=== PATIENT | female | born 1995 | race Caucasian/White ===

== ENCOUNTER 2018-02-01 16:04 | Emergency (ER) | payer OTHER ==
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
[2018-02-01] MEDS ORDERED: NS 500 ML IV ONE (17:03)
[2018-02-01 17:39] LABS: PLATELET COUNT 186 10^3/uL (150-400)
[2018-02-01] MEDS ORDERED: KETOROLAC 15 MG/1 ML SDV IVP ONE (18:01)
[2018-02-01 21:46] VITALS: BP 123/79
== END 2018-02-01 22:17 | disposition home or self-care (01) ==
DX: R07.9 Chest pain, unspecified (principal); F32.9 Major depressive disorder, single episode, unspecified
CPT/HCPCS: 80305; 84484-PO; 96374; J1885

== ENCOUNTER 2018-03-27 06:36 | Day surgery (SDC) | payer SELFPAY ==
[2018-03-27] MEDS ORDERED: NS 500 ML IV ONE (06:39)
[2018-03-27] MEDS ORDERED: MIDAZOLAM 2 MG/2 ML VIAL IVP ONE (06:39)
[2018-03-27] MEDS ORDERED: BENZOCAINE UNIT DOSE SPRAY HURRICAINE MM ONE (06:39)
[2018-03-27] MEDS ORDERED: fentaNYL 100 MCG/2 ML INJ IVP ONE (06:39)
[2018-03-27] MEDS ORDERED: PROPOFOL 200 MG/20 ML VIAL ONE ×2 (08:13→09:27)
[2018-03-27] MEDS ORDERED: LIDOCAINE 2% JELLY 20 ML (UROJECT) ONE (08:15)
--- NOTE | 2018-03-27 08:21 | PDANEPAE ---
ANE Past Medical History - Cardiovascular History Hx Hypertension: No Hx Arrhythmias: No Hx Chest Pain: No Hx Coronary Artery / Peripheral Vascular Disease: No Hx CHF / Valvular Disease: No Hx Palpitations: No - Pulmonary History Hx COPD: No Hx Asthma/Reactive Airway Disease: No Hx Recent Upper Respiratory Infection: No Hx Oxygen in Use at Home: No Hx Sleep Apnea: No - Endocrine History Hx Diabetes: No Hypothyroid: No Hyperthyroid: No Obesity: no - Renal History Hx Renal Disorders: No - Liver History Hx Hepatic Disorders: No - Neurological & Psychiatric Hx Hx Neurological and Psychiatric Disorders: Yes Neurological / Psychiatric History Comment: +Depression ANE Review of Systems Review of systems is: negative Review of Systems: - Exercise capacity Exercise capacity: >=4 METS ANE Patient History - Allergies Allergies/Adverse Reactions: No Known Allergies Allergy (Unverified 02/01/18 16:07) - Home Medications Home Medications: NK [No Known Home Meds] 02/01/18 [Last Taken Unknown] - NPO status NPO Status: no food or drink >8 hours - Anes Hx Anes Hx: no prior problems - Smoking Hx Smoking Status: Never smoked - Family Anes Hx Family Anes Hx: none ANE Labs/Vital Signs - Vital Signs Height: 161 cm Weight: 60 kg ANE Physical Exam - Airway Neck exam: FROM Mallampati Score: Class 2 Mouth exam: normal dental/mouth exam - Pulmonary Pulmonary: no respiratory distress - Cardiovascular Cardiovascular: regular rate and rhythym - ASA Status ASA Status: II ANE Anesthesia Plan Anesthesia Plan: GA with mask
--- NOTE | 2018-03-27 08:46 | PDGENHP ---
History & Physical Chief Complaint: MR History of Present Illness: Known MR, now approaching severe. Pertinent Past, Social, Family History: reviewed Cardiorespiratory Assessment: stable for sedation which will be provided by the anesthesia service.
--- NOTE | 2018-03-27 09:33 | POSTANESTH ---
Post Anesthetic Evaluation Cardiovascular Status: Normal, Stable Respiratory Status: Normal, Stable Level of Consciousness/Mental Status: Can Participate in Eval Pain Control: Adequate, Prn Tx Ordered Nausea/Vomiting Control: Adequate, Prn Tx Ordered Complications Possibly Related to Anesthesia: None Noted
--- NOTE | 2018-03-27 17:08 | ECHO ---
[email or web address] [place] [id number] Main: [phone] Fax: Transesophageal Echocardiography Name: BELINDA ROBERTS MR#: [id number] Study Date: 03/27/2018 Study Time: 08:21 AM Date of : 1995 Age: 23 year(s) Height: 161 cm (63.39 in.) Weight: 60 kg (132.28 lb.) BSA: 1.63 m2 Gender: Female Examination: ARPAN Indication: Murmur, Eval Mitral Valve Image Quality: Contrast: Requested by: Monique Payton Heart Rate: Rhythm: BP: / Procedure Staff Crossband Layer: Carlos Manuel Casanova RDCS Reading Physician: Monique Payton MD Requesting Provider: Crossband Layer: Reading Physician: Requesting Provider: ARPAN Exam Details Conclusions: Normal global systolic LV function. No regional wall motion abnormality. Normal RV function. The left atrium is normal in size. An agitated saline study was performed and was negative for intracardiac shunting. Severe mitral valve regurgitation is present. There is P2 prolapse of the mitral valve with hypermoble chordae tendineae consistent with chordae rupture The MR ERO is .51 cm2 with a known MR volume of 52ml. The MR PISA radius is 1.0cm.. Plan for cardiac surgery consult Measurements: Chambers Valvular Assessment AV/MV Valvular Assessment TV/PV Normal Normal Normal Name Value Range Name Value Range Name Value Range Additional Measurements: Chambers Valvular Assessment AV/MV Name Value Name Value LADs Lon.7 cm MR Vena Contracta: 0.5 cm Patient: BELINDA ROBERTS Study Date: 03/27/2018 Page 1 of 2 08:21 AM LA Area: 11.9 cm2 MR ERO: 0.510 cm2 LA Volume: 31 ml MR PISA radius: 10 mm LA Volume Index: 19.0 ml/m2 MR Reg. Volume: 40 ml Findings: Left Ventricle: Normal global systolic LV function. No regional wall motion abnormality. Right Ventricle: Normal RV function. Left Atrium: The left atrium is normal in size. An agitated saline study was performed and was negative for intracardiac shunting. Right Atrium: The right atrium is normal in size. Mitral Valve: There is moderate thickening of the mitral valve leaflets. Severe mitral valve regurgitation is present. There is P2 prolapse of the mitral valve with hypermoble chordae tendineae consistent with chordae rupture The MR ERO is .51 cm2 with a known MR volume of 52ml. The MR PISA radius is 1.0cm.. Aortic Valve: The aortic valve is normal in appearance and function. The aortic valve is tri-leaflet. Tricuspid Valve: The tricuspid valve is normal in appearance and function. Pulmonic Valve: The pulmonic valve is normal in appearance and function. Aorta: The aorta is normal. Pericardium: No pericardial effusion. l1n (No Signature Object) Patient: BELINDA ROBERTS Study Date: 03/27/2018 Page 2 of 2 08:21 AM [id number]
== END 2018-03-27 12:17 | disposition home or self-care (01) ==
LOC: FCATH 06:36
PROVIDERS: ATTEND Internal Medicine Cardiovascular Disease
PROC: B245ZZ4 Ultrasonography of Left Heart, Transesophageal (ICD-10-PCS; principal; 2018-03-27)
DX: I34.0 Nonrheumatic mitral (valve) insufficiency (principal); F32.9 Major depressive disorder, single episode, unspecified
CPT/HCPCS: J2704

== ENCOUNTER 2018-04-16 06:28 | Inpatient (IN) | payer OTHER ==
[~2018-04-16 06:28] MED LIST: AMINOCAPROIC ACID 5 GM/20 ML VIAL IV ONE; CARDIOPLEGIC SOLUTION 1,052.8 ML PF ONE; CITRATE DEXTROSE SOLN 500 ML BAG MISC ONE; INSULIN REGULAR HUMAN 100 UNIT in NS 100 ML IV ONE; LIDOCAINE 1% 2 ML INJ ID PRN; MANNITOL 25% 12.5 GM/50 ML VIAL IVP ONE; MUPIROCIN 2% 22 GM OINT NS ONE; PHENYLEPHRINE HCL 50 MG in NS 250 ML IV ONE; ceFAZolin 2 GM/DEXTROSE 100 ML IV ONE
[2018-04-16] MEDS ORDERED: LR 1,000 ML IV ONE (06:36)
[2018-04-16] MEDS ORDERED: MILRINONE/DEXTROSE/100 ML BAG IV ONE (07:17)
[2018-04-16] MEDS ORDERED: PROTAMINE SULFATE 50 MG/5 ML VIAL IVP ONE (07:17)
[2018-04-16] MEDS ORDERED: CALCIUM CHLORIDE 1 GM/10 ML INJ ONE ×2 (07:17→07:20)
[2018-04-16] MEDS ORDERED: AMIODARONE HCL 150 MG/3 ML VIAL ONE ×2 (07:18→07:20)
[2018-04-16] MEDS ORDERED: niCARdipine/NACL/200 ML BAG IV ONE (07:18)
[2018-04-16] MEDS ORDERED: NA BICARBONATE 50 MEQ/50 ML VIAL ONE (07:18)
[2018-04-16] MEDS ORDERED: AMINOCAPROIC ACID 5 GM/20 ML VIAL ONE ×2 (07:18→07:20)
[2018-04-16] MEDS ORDERED: HEPARIN 10,000 UNIT/10 ML MDV (1,000 UNIT/ML) ONE ×2 (07:18→07:20)
[2018-04-16] MEDS ORDERED: DOPamine/DEXTROSE 400 MG/250 ML BAG IV ONE (07:18)
[2018-04-16] MEDS ORDERED: ceFAZolin 1 GM VIAL ONE (07:19)
[2018-04-16] MEDS ORDERED: NITROGLYCERIN/D5W 50 MG/250 ML BOTTLE IV ONE (07:19)
[2018-04-16] MEDS ORDERED: ADENOSINE 6 MG/2 ML VIAL ONE (07:19)
[2018-04-16] MEDS ORDERED: ALBUMIN 5% 250 ML BOTTLE IV ONE ×3 (07:19→20:59)
[2018-04-16] MEDS ORDERED: SODIUM BICARBONATE 50 MEQ/50 ML SYR ONE ×3 (07:19→13:03)
[2018-04-16] MEDS ORDERED: CITRATE DEXTROSE SOLN 500 ML BAG ONE (07:20)
[2018-04-16] MEDS ORDERED: LIDOCAINE 2% 100 MG/5 ML SYR ONE ×2 (07:20→08:11)
[2018-04-16] MEDS ORDERED: methylPREDNISolone SOD SUCC 1 GM/8 ML VIAL ONE (07:20)
[2018-04-16] MEDS ORDERED: MAGNESIUM SULFATE 1 GM/2 ML VIAL ONE (07:20)
[2018-04-16] MEDS ORDERED: MIDAZOLAM 2 MG/2 ML VIAL IVP ONE (07:51)
--- NOTE | 2018-04-16 07:56 | PDANEPAE ---
ANE History of Present Illness minimally invasive MVR ANE Past Medical History - Cardiovascular History Hx Hypertension: No Hx Arrhythmias: No Hx Chest Pain: No Hx Coronary Artery / Peripheral Vascular Disease: No Hx CHF / Valvular Disease: Yes Hx Palpitations: No Cardiovascular History Comment: mitral regurgitation-congenital - Pulmonary History Hx COPD: No Hx Asthma/Reactive Airway Disease: No Hx Recent Upper Respiratory Infection: No Hx Oxygen in Use at Home: No Hx Sleep Apnea: Yes Sleep Apnea Screening Result - Last Documented: Negative - Neurologic History Hx Cerebrovascular Accident: No Hx Seizures: No Hx Dementia: No - Endocrine History Hx Diabetes: No - Renal History Hx Renal Disorders: No - Liver History Hx Hepatic Disorders: No - Neurological & Psychiatric Hx Hx Neurological and Psychiatric Disorders: Yes Neurological / Psychiatric History Comment: depression. 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 leg surgeries 2011 and 2013. tonsillectomy at 10 yo ANE Review of Systems Review of Systems: - Exercise capacity METS (RN): 4 METS ANE Patient History - Allergies Allergies/Adverse Reactions: No Known Allergies Allergy (Verified 04/09/18 15:57) - Home Medications Home medications: home medication list seen and reviewed Home Medications: FLUoxetine [PROzac] 20 mg PO HS 03/27/18 [Last Taken 04/14/18] Acetaminophen [Tylenol ES 500 mg (*)] 500 mg PO Q6H PRN 04/09/18 [Last Taken ] - NPO status NPO Since - Liquids (Date): 04/16/18 NPO Since - Liquids (Time): 23:55 NPO Since - Solids (Date): 04/15/18 NPO Since - Solids (Time): 23:55 - Anes Hx Anes Hx: no prior problems - Smoking Hx Smoking Status: Never smoked - Alcohol Use Alcohol Use: Rarely - Family Anes Hx Family Anes Hx: none Family Hx Anesthesia Complications: none ANE Labs/Vital Signs - Labs - CBC WBC: reviewed and okay - Vital Signs Blood Pressure: 122/72 Heart Rate: 68 Respiratory Rate: 16 O2 Sat (%): 97 Height: 161 cm Weight: 60 kg ANE Physical Exam - Airway Neck exam: FROM Mallampati Score: Class 1 Mouth exam: normal dental/mouth exam - Pulmonary Pulmonary: no respiratory distress - Cardiovascular Cardiovascular: regular rate and rhythym - ASA Status ASA Status: II ANE Anesthesia Plan Anesthesia Plan: general endotracheal anesthesia Lines/Monitors: arterial line, central line, ARPAN
[2018-04-16] MEDS ORDERED: DEXMEDETOMIDINE HCL 400 MCG in NS 100 ML IV ONE (08:00)
--- NOTE | 2018-04-16 08:08 | PDHPUP ---
History & Physical Update H&P update statement: This history and physical update is based on an assessment of the patient which was completed after admission or registration (within 24 hours), but prior to the surgery/procedure. H&P update: H&P reviewed & patient examined, no change in patient's condition since H&P completed
[2018-04-16] MEDS ORDERED: REMIFENTANIL HCL 1 MG VIAL ONE (08:10)
[2018-04-16] MEDS ORDERED: MIDAZOLAM 2 MG/2 ML VIAL ONE ×2 (08:10→12:09)
[2018-04-16] MEDS ORDERED: ROCURONIUM 100 MG/10 ML VIAL ONE (08:10)
[2018-04-16] MEDS ORDERED: fentaNYL 250 MCG/5 ML INJ ONE (08:10)
[2018-04-16] MEDS ORDERED: PROPOFOL/EMULSION 500 MG/50 ML BOTTLE IV ONE (08:10)
[2018-04-16] MEDS ORDERED: DEXAMETHASONE 4 MG/ML VIAL ONE ×2 (08:11)
[2018-04-16] MEDS ORDERED: ePHEDrine SULFATE 25 MG/5 ML SYR ONE (08:11)
[2018-04-16] MEDS ORDERED: PHENYLEPHRINE HCL 100 MCG/ML SYR ONE (08:11)
[2018-04-16] MEDS ORDERED: ONDANSETRON 4 MG/2 ML VIAL ONE (08:11)
[2018-04-16] MEDS ORDERED: LIDOCAINE 2% JELLY 5 ML TUBE ONE (08:14)
[2018-04-16] MEDS ORDERED: LIDOCAINE HCL 160 MG/4 ML LTA KIT TP ONE (08:15)
[2018-04-16] MEDS ORDERED: VASOPRESSIN 20 UNIT/ML VIAL ONE (11:53)
[2018-04-16] MEDS ORDERED: ROCURONIUM 50 MG/5 ML VIAL ONE ×2 (11:55→14:35)
[2018-04-16] MEDS ORDERED: NOREPINEPHRINE BITARTRATE 16 MG in NS 250 ML IV SCH (12:00)
[2018-04-16] MEDS ORDERED: EPINEPHrine 1 MG/10 ML SYR IVP ONE (12:12)
[2018-04-16] MEDS ORDERED: PANTOPRAZOLE SODIUM 40 MG VIAL ONE (12:53)
[2018-04-16] MEDS ORDERED: SUGAMMADEX SODIUM 200 MG/2 ML VIAL IVP ONE (13:56)
[2018-04-16] MEDS ORDERED: PROPOFOL 200 MG/20 ML VIAL ONE (14:20)
[2018-04-16] MEDS ORDERED: MAGNESIUM HYDROXIDE 30 ML UDCUP PO PRN (14:25)
[2018-04-16] MEDS ORDERED: POLYETHYLENE GLYCOL 3350 17 GM PKT PO PRN (14:25)
[2018-04-16] MEDS ORDERED: D50W 25 GM/50 ML SYR IVP PRN (14:25)
[2018-04-16] MEDS ORDERED: METOCLOPRAMIDE 10 MG/2 ML VIAL IVP PRN (14:25)
[2018-04-16] MEDS ORDERED: SODIUM CL NASAL 45 ML BTL EACHNARE PRN (14:25)
[2018-04-16] MEDS ORDERED: LACTULOSE 20 GM/30 ML UDCUP PO PRN (14:25)
[2018-04-16] MEDS ORDERED: ACETAMINOPHEN 325 MG TAB PO PRN (14:25)
[2018-04-16] MEDS ORDERED: MEPERIDINE 25 MG/0.5 ML AMP IVP PRN (14:25)
[2018-04-16] MEDS ORDERED: CEPACOL LOZENGE PO PRN (14:25)
[2018-04-16] MEDS ORDERED: PANTOPRAZOLE SODIUM 40 MG VIAL IVP ONE (14:25)
[2018-04-16] MEDS ORDERED: ONDANSETRON DISINTEGRATING 4 MG TAB PO PRN (14:25)
[2018-04-16] MEDS ORDERED: BISACODYL 10 MG SUPP PR PRN (14:25)
[2018-04-16] MEDS ORDERED: POTASSIUM Cl (KCl) 50 ML IV PRN (14:25)
[2018-04-16] MEDS ORDERED: INSULIN REGULAR HUMAN 100 UNIT in NS 100 ML IV SCH (14:30)
[2018-04-16] MEDS ORDERED: NS 1,000 ML IV SCH (14:30)
[2018-04-16] MEDS: ALBUMIN 5% 250 ML IV PRN ×4 (15:10→21:45)
--- NOTE | 2018-04-16 15:39 | PDMN ---
Medical Necessity Medical necessity: Pt meets inpt criteria per MD order and [facility], Cardiac Valve Replacement or Repair, Medicare inpt only surg list. 23 y/o w/severe mitral valve regurg admitted for min invasive mitral valve repair and post-op care.
[2018-04-16] MEDS ORDERED: MEPERIDINE 25 MG/0.5 ML AMP IVP ONE (15:45)
[2018-04-16] MEDS: KETOROLAC 15 MG/1 ML SDV IVP SCH ×2 (16:20→19:26)
--- NOTE | 2018-04-16 17:27 | GCON ---
RACK CLEANER CONSULTATION REASON FOR CONSULTATION: Patient examined postoperatively after a minimally invasive mitral valve re pair and hypoperfusion. 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 Again, she was examined postoperatively. Intraoperatively, there were problems with perfusion, with some evide nce of a period of hypoperfusion and low pressure. The perfusion catheter was switched from the righ t leg to the left leg, and perfusion was performed, and the surgery was finished. She is currently i n the intensive care unit, sedated and on mechanical ventilation. All history is gleaned from the [place] dical record. REVIEW OF SYSTEMS: Ten-point review of systems was attempted, but unable to perform secondary to sed ation and mechanical ventilation. 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 PAST SURGICAL HISTORY: Has had tonsillectomy, removal of tumor from right thigh. ALLERGIES: No known to medication. MEDICATIONS: At home include fluoxetine. FAMILY HISTORY: Noncontributory. PHYSICAL EXAM: VITAL SIGNS: Blood pressure 82/38, pulse 116. Respirations are 20, temperature 35.4. Oxygen saturation is 90% on 100% mechanical ventilation. GENERAL: She is a well-developed, well-n ourished 23-year-old female who is obtunded and on mechanical ventilation. HEENT: Eyes, pupils are w geraldine and poorly responsive. NECK: Supple. There is no cervical adenopathy. Orally, endotracheal tu be is in good position. NECK: Supple. No cervical adenopathy. HEART: Regular rate and rhythm, wi thout murmurs, rubs, or gallops. LUNGS: Diminished breath sounds, with few bibasilar crackles. ABD OMEN: Soft, nontender. Bowel sounds present in all 4 quadrants. EXTREMITIES: No clubbing, cyanosi s, or edema. LABORATORIES: Currently pending. IMAGING: Chest x-ray shows endotracheal tube in good position. There is evidence of pulmonary edema and fluid overload. IMPRESSION: 1. Mitral regurgitation. 2. Status post mitral valve repair. 3. Intraoperative perfusion problem with low perfusion. This apparently went on for approximately 1 5 minutes before perfusion was restored. 4. Acute respiratory failure secondary to above. 5. Pulmonary edema. 6. Encephalopathy with neurologic changes. RECOMMENDATIONS: 1. Continue mechanical ventilation for now. 2. Hold sedation for now. 3. DVT and PE prophylaxis, holding anticoagulation for now. 4. Stress ulcer prophylaxis. 5. Close neurologic and cardiovascular monitoring. /[id number]/MODL
[2018-04-16] MEDS ORDERED: DEXMEDETOMIDINE HCL 400 MCG in NS 100 ML IV SCH (18:00)
[2018-04-16] MEDS ORDERED: niCARdipine/NACL 200 ML IV SCH (18:00)
[2018-04-16] MEDS ORDERED: MAGNESIUM SULF 1 GM/DEXTROSE 100 ML IV ONE (19:30)
[2018-04-16] MEDS ORDERED: PROPOFOL/EMULSION 1,000 MG/100 ML BOTTLE IV ONE (21:13)
[2018-04-16] MEDS: PROPOFOL/EMULSION 100 ML IV SCH (21:49)
[2018-04-16] MEDS: ceFAZolin 2 GM/DEXTROSE 100 ML IV SCH (22:10)
[2018-04-16] MEDS: MUPIROCIN 2% 22 GM OINT NS SCH (22:14)
[2018-04-16] MEDS: FLUoxetine 20 MG CAP PO SCH (22:15)
[2018-04-17] MEDS: KETOROLAC 15 MG/1 ML SDV IVP SCH ×4 (00:10→18:25)
[2018-04-17 04:07] LABS: PLATELET COUNT 56 10^3/uL (150-400)
[2018-04-17 04:11] LABS: INR 1.63 (0.83-1.16); PROTIME(PATIENT) 19.5 SEC (12.0-15.0)
[2018-04-17] MEDS: PROPOFOL/EMULSION 100 ML IV SCH ×2 (04:50→23:46)
[2018-04-17] MEDS: PETROLAT,WHT/MIN OIL/SOD CHL 3.5 GM OPHT.OINT EACHEYE SCH ×3 (06:11→19:32)
[2018-04-17] MEDS: ceFAZolin 2 GM/DEXTROSE 100 ML IV SCH ×3 (06:11→21:18)
--- NOTE | 2018-04-17 06:48 | SOAPPROG ---
<SusannaRoddy P - Last Filed: 04/17/18 06:56> SOAP Progress Note Assessment/Plan: Assessment: Stable hemodynamics overnight. Responds to deep sternal rub with grimace. spontaneous movements of tongue relative to ET tube Propofol off now. CT last night unremarkable. I met with patients mother and answered questions. Plan for Neurology to evaluate. Will likely need EEG later today. Discussed with Dr. Gunderson Plan: 04/17/18 06:56 Objective: Vital Signs Temp Pulse Resp BP Pulse Ox 37.7 C 102 H 22 H 135/63 H 100 04/17/18 06:00 04/17/18 06:50 04/17/18 06:50 04/17/18 06:50 04/17/18 06:50 Laboratory Results 04/17/18 03:55 04/17/18 03:55 04/16/18 04/17/18 04/18/18 05:59 05:59 05:59 Intake Total 3121 Output Total 2900 Balance 221 PT 19.5 SEC (12.0-15.0) H 04/17/18 03:55 INR 1.63 (0.83-1.16) H 04/17/18 03:55 ICD10 Worksheet Patient Problems: Problems Problem Status Onset Acute blood loss anemia Acute Mitral valve regurgitation Acute S/P mitral valve repair Acute ~04/16/18 Depression Chronic <Zeina Ricardo - Last Filed: 04/17/18 07:43> SOAP Progress Note Assessment/Plan: Assessment: POD#1 MICS complex MV repair w #26 Physio ring, access mini right thoracotomy, femoral CPB with primary repair of femoral arteries and vein after decannulation Severe MR - Amenable to mini invasive approach. Rt fem CPB complicated by unexplained 15 min low flow state refractory to pressors. Cannula ultimately transferred to left side with improved hemodynamics. Slow to arouse and heightened concern for anoxic encephalopathy. CT head NAF. Neuro to be consulted. Cardiac status stable. Vent needs minimal. Acute expected blood loss anemia with thrombocytopenia and mild coagulopathy - Stable s/p PRBC. No evidence active bleeding. Plan: Supportive care as per multidisciplinary team. Await neuro recs. 04/17/18 06:47 Subjective: Sedated on vent. Objective: Vital Signs Temp Pulse Resp BP Pulse Ox 37.7 C 91 20 115/51 L 100 04/17/18 06:00 04/17/18 06:00 04/17/18 06:00 04/17/18 06:00 04/17/18 06:00 Laboratory Results 04/17/18 03:55 04/17/18 03:55 04/16/18 04/17/18 04/18/18 05:59 05:59 05:59 Intake Total 3121 Output Total 2900 Balance 221 PT 19.5 SEC (12.0-15.0) H 04/17/18 03:55 INR 1.63 (0.83-1.16) H 04/17/18 03:55 Off levo yest pm. Maintaining CI > 3, SVO2 > 70. CXR no PTX, no sig pulm vasc congestion, no effusions. CTOP thin. Labs as expected. Physical Exam - Physical Exam General Appearance: no apparent distress, unresponsive (to voice) Respiratory: other (chest tube to pleurovac, serosang drainage, no air leak) Cardiac/Chest: regular rate, rhythm, other (thoracot and bilat groins CDI) Abdomen: non-tender, soft Skin: warm/dry Extremities: swelling (1+ gen), other (feet pink and warm)
--- NOTE | 2018-04-17 08:31 | PDINTPN ---
[facility] Progress Note Assessment/Plan: Assessment/Plan: * Mitral regurgitation * Status post mitral valve repair * Encephalopathy-secondary to low pressure intraoperatively. Improved -neurology has been consulted -EEG has been scheduled * Acute respiratory failure-stable on mechanical ventilation -hold assessment for extubation for now * Anemia-improved post transfusion * Mild renal insufficiency-creatinine 1.2 -follow * Transaminitis-mild elevations in both AST and ALT. Likely secondary to low- flow state -follow * VT prophylaxis * Stress ulcer prophylaxis * Nutrition-on hold Subjective: Coma. Objective: Vital Signs Temp Pulse Resp BP Pulse Ox 37.7 C 101 H 18 134/60 H 99 04/17/18 06:00 04/17/18 08:00 04/17/18 08:00 04/17/18 08:00 04/17/18 08:00 Laboratory Results 04/17/18 03:55 04/17/18 03:55 04/16/18 04/17/18 04/18/18 05:59 05:59 05:59 Intake Total 3121 Output Total 2900 Balance 221 PT 19.5 SEC (12.0-15.0) H 04/17/18 03:55 INR 1.63 (0.83-1.16) H 04/17/18 03:55 Laboratory Results 04/17/18 03:55 04/17/18 03:55 04/17/18 03:55 Calcium 7.4 mg/dL L mg/dL (8.5 - 10.4) Total Bilirubin 0.9 mg/dL mg/dL (0.1 - 1.4) AST 191 IU/L H IU/L (14 - 46) ALT 123 IU/L H IU/L (9 - 52) Alkaline Phosphatase 27 IU/L L IU/L (38 - 126) Total Protein 3.9 g/dL L g/dL (6.3 - 8.2) Albumin 2.5 g/dL L g/dL (3.5 - 5.0) Chest x-ray by myself. Endotracheal tube in good position. Central venous catheter and chest tube is in good position. Mild fluid overload. - Time Spent With Patient Time Spent With Patient: 35 min of critical care time spent with patient. Case discussed with Nursing, Respiratory therapy and neurology Physical Exam - Physical Exam General Appearance: WD/WN, obtunded, No alert EENT: PERRL/EOMI, ET tube Neck: non-tender, supple Respiratory: chest non-tender, lungs clear, normal breath sounds Cardiac/Chest: normal peripheral pulses, regular rate, rhythm Peripheral Pulses: 2+: carotid (R), carotid (L), femoral (R), femoral (L), dorsalis-pedis (R), dorsalis-pedis (L) Abdomen: normal bowel sounds, non-tender, soft Pelvic Exam: deferred Rectal: deferred Skin: normal color, warm/dry Extremities: normal inspection, normal capillary refill Neuro/Psych: No alert ICD10 Worksheet Patient Problems: Problems Problem Status Onset Acute blood loss anemia Acute Mitral valve regurgitation Acute S/P mitral valve repair Acute ~04/16/18 Depression Chronic
[2018-04-17] MEDS ORDERED: PANTOPRAZOLE SODIUM 40 MG TAB PO SCH (09:00)
[2018-04-17] MEDS ORDERED: ASPIRIN 81 MG CHEWABLE TAB TUBE PRN (09:00)
[2018-04-17] MEDS: ASPIRIN 81 MG CHEWABLE TAB PO SCH (09:04)
[2018-04-17] MEDS: MUPIROCIN 2% 22 GM OINT NS SCH ×2 (09:05→21:18)
--- NOTE | 2018-04-17 09:42 | GCON ---
NEUROLOGIC CONSULTATION REFERRING PHYSICIAN: Javier Gunderson DO HISTORY: The patient is a 23-year-old woman I am asked to see in neurologic consultation regarding a ltered responsiveness. The patient had elective mitral valve repair yesterday and experienced a time frame of relative hypoperfusion over about 15 or 20 minutes. I have not ascertained the exact timefr christine but have reviewed the notes from the candy counter clerk, showing the mean arterial pressure at 10:15 of 60 and remaining around that pressure until 11:30, when it was at 50, and then 48 at 11:45, 48 at 12 , 21 at 12:15, and 51 at 12:45 p.m. I have been told that the catheter was adjusted and changed, and pressure was able to be maintained. Anesthesia was weaned, and the patient was having some tongue t hrusting and gagging motions on the tube. That has also been documented here in the ICU when the pro pofol was weaned. According to report from the nurse last evening, there were times of flexion of th e upper extremities, more of a decorticate posture and movement of the mouth, with gagging on the tub e intermittently. Her sister is with her and noted that there was some increased muscle tone yesterd ay relative to today. As she has been weaned from propofol temporarily, she fairly promptly starts t o gag or cough. Her eyes intermittently open. There is a tendency for her to flex up her knees. Sh e is not spontaneously moving the arms. I do not see any stereotyped, repetitive motion to suggest s eizure or myoclonus, and there is not sustained period of hypertonicity. With stimulation, there are bilateral Babinski signs. She is not following commands for me. She opens the eyes spontaneously b ut does not have sustained attention toward the examiner. Pupils are 3 mm to 4 mm and reacting. Eye movements are conjugate but not able to track my finger. The sensory response elicited with pain le ads to a partial reflexive motion in the feet. This is due to the irritation of the plantar surface. The reflexes are brisk. The current blood pressure 134/60, mean arterial pressure of 84. Mean arter ial pressure since coming to the ICU at 1310 has been above 60 and mostly between 69-80, sometimes up to 90. Pulse has been around 100. Respiratory rate 21. LABORATORY: White count is 14,000. INR 1.63. Current blood gas, pH of 7.35, CO2 38, oxygen 119, bi carbonate 22. Chemistry reveals essentially normal electrolytes, but mild elevation of creatinine of 1.2, glucose 104, calcium 7.4. AST and ALT are elevated at 191 and 123, respectively. I have reviewed the head CT from 194 yesterday, and that is normal. IMPRESSION: Total unit time of 50 minutes. The patient has experienced a timeframe of relative low mean arterial pressure, with possible significantly decreased cerebral perfusion pressure and has bee n slower to respond, but is reacting with preservation of brainstem reflexes and movements that at le ast sometimes have a somewhat volitional component, but at other times more reflexive. It is too ear ly to draw any conclusions about any actual hypoxic or ischemic injury. I do not believe she is clin ically having seizure. However, I would like to obtain EEG to get a baseline assessment of general c erebral function. With regard to sedating, periods of weaning of the sedation would be appropriate t o continue to reassess the neurologic status and look for any evidence of following commands, which h as not been clearly documented at this point. I spoke to the patient's father, mother and her sister and gave them my contact information. I will plan to follow up later today. /[id number]/MODL
[2018-04-17] MEDS: PANTOPRAZOLE SODIUM 40 MG VIAL IVP SCH (10:27)
[2018-04-17] MEDS: fentaNYL 100 MCG/2 ML INJ IVP PRN (10:28)
[2018-04-17] MEDS ORDERED: POTASSIUM Cl (KCl) 20 MEQ/50 ML BAG IV ONE (11:17)
--- NOTE | 2018-04-17 12:28 | CPEEG ---
DATE OF STUDY: EEG is obtained in the ICU. This is a technically adequate study obtained with the patient on the ve ntilator in the ICU. She has a history of relative low blood pressure during cardiac procedure and h as been slower to arouse back to baseline with the weaning of anesthesia. Clinically, there have bee n no definite seizures, but variable motor movements raising the question of any possible seizure act ivity. Mild clonus has not been specifically identified. She is not currently following commands, b ut opens eyes when sedation is weaned and opens the mouth and seems to gag or cough on the endotrache al tube. Indication is to evaluate for seizure or epileptiform activity or any focal findings. The background consists of a predominantly generalized 7-10 Hz activity with periods of relative generalized slowin g and sometimes frontal predominant theta or rare frontal predominant delta slowing but no epileptifo rm discharges. No areas of focal slowing or focal epileptiform discharges and no electrographic seiz ures. INTERPRETATION: This is an abnormal EEG due to some generalized slowing, but also fully consistent w ith her state of relative decreased responsiveness and effects of sedative medication at times as wel l. There are not features of any electrographic seizure or epileptiform discharges, and we will cont inue to monitor her clinical progress. /[id number]/MODL
--- NOTE | 2018-04-17 15:16 | ASMTCASEMG ---
Living Arrangements What is your living Answers: With Other (Not Family) arrangement? Who do you live with? Type Of Residence What kind of residence do Answers: House you live in? 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 During the repair the patient experienced a timeframe of relative hypoperfusion over about 15 or 20 minutes. Neuro is consulting. OT/PT/OUTSIDE SALES ACCOUNT EXECUTIVE/Cardiac rehab evals have been ordered. D/C plan TBD. CM will follow. Date Signed: 04/17/2018 03:07 PM Electronically Signed By:Haritha Fu LCSW
[2018-04-17] MEDS ORDERED: PROTOCOL POTASSIUM 1 DOSE MISC PRN (16:07)
--- NOTE | 2018-04-17 17:40 | CPEKG ---
Test Reason : OPEN Blood Pressure : / mmHG Vent. Rate : 121 BPM Atrial Rate : 121 BPM P-R Int : 137 ms QRS Dur : 070 ms QT Int : 326 ms P-R-T Axes : 093 058 -03 degrees QTc Int : 463 ms Sinus tachycardia Borderline repol abnormality, diffuse leads Confirmed by Trey Hand ([id number]) on 04/17/2018 5:40:09 PM Referred By: Confirmed By:Trey Hand
[2018-04-17] MEDS ORDERED: POTASSIUM Cl (KCl) 50 ML IV ONE (19:30)
[2018-04-17] MEDS: FLUoxetine 20 MG CAP PO SCH (21:18)
[2018-04-18] MEDS: ONDANSETRON 4 MG/2 ML VIAL IVP PRN (00:12)
[2018-04-18] MEDS: KETOROLAC 15 MG/1 ML SDV IVP SCH ×2 (00:27→05:30)
[2018-04-18] MEDS: PETROLAT,WHT/MIN OIL/SOD CHL 3.5 GM OPHT.OINT EACHEYE SCH ×5 (00:28→23:56)
[2018-04-18 05:09] LABS: INR 1.26 (0.83-1.16)
[2018-04-18 05:13] LABS: PLATELET COUNT 49 10^3/uL (150-400)
[2018-04-18] MEDS: ceFAZolin 2 GM/DEXTROSE 100 ML IV SCH (05:29)
[2018-04-18] MEDS: PROPOFOL/EMULSION 100 ML IV SCH ×2 (05:33→22:53)
--- NOTE | 2018-04-18 07:13 | SOAPPROG ---
SOAP Progress Note Assessment/Plan: POD #2: MICS complex MV repair w #26 Physio ring, access mini right thoracotomy , femoral CPB with primary repair of femoral arteries and vein after decannulation Severe MR with torn chord to P3 segment s/p MICS complex repair - continue AT, CTs to pleurovac, and FC. Coumadin as per protocol when appropriate. Encephalopathy secondary to hypoperfusion - prognosis remains critical. Mgmt as per neurology. Acute expected blood loss anemia with thrombocytopenia and mild coagulopathy - stable after multiple units of PRBC. No evidence active bleeding. Monitor. DVT prophylaxis - SCDs. Nutrition - tube feeds as per protocol. Subjective: Unresponsive Objective: Vital Signs Temp Pulse Resp BP Pulse Ox 37.5 C 82 22 H 142/58 H 100 04/18/18 04:00 04/18/18 06:00 04/18/18 06:00 04/18/18 06:00 04/18/18 06:00 Laboratory Results 04/18/18 04:45 04/18/18 04:45 04/17/18 04/18/18 04/19/18 05:59 05:59 05:59 Intake Total 3121 2171 Output Total 2900 2525 Balance 221 -354 PT 16.0 SEC (12.0-15.0) H 04/18/18 04:45 INR 1.26 (0.83-1.16) H 04/18/18 04:45 Physical Exam - Physical Exam General Appearance: no apparent distress, unresponsive EENT: ET tube Neck: normal inspection Respiratory: No respiratory distress Cardiac/Chest: regular rate, rhythm Abdomen: non-tender, soft, No distended Skin: normal color, warm/dry Extremities: No pedal edema Neuro/Psych: other (sedated) ICD10 Worksheet Patient Problems: Problems Problem Status Onset Acute blood loss anemia Acute Mitral valve regurgitation Acute S/P mitral valve repair Acute ~04/16/18 Depression Chronic
[2018-04-18] MEDS: ASPIRIN 81 MG CHEWABLE TAB PO SCH (07:20)
--- NOTE | 2018-04-18 08:47 | PDINTPN ---
[facility] Progress Note Assessment/Plan: Assessment/Plan: * Mitral regurgitation * Status post mitral valve repair * Encephalopathy-secondary to low pressure intraoperatively. Having gradually -frequent neuro checks * Acute respiratory failure-stable on mechanical ventilation -hold assessment for extubation until mental status improves * Anemia-improved post transfusion * Sedation-adequate -will keep probe fall as low as possible * Thrombocytopenia-stable but low. -follow * Mild renal insufficiency-creatinine 1.2 -follow * Transaminitis-mild elevations in both AST and ALT. Improved -follow * VT prophylaxis * Stress ulcer prophylaxis * Nutrition-on hold Subjective: Coma Objective: Vital Signs Temp Pulse Resp BP Pulse Ox 37.5 C 82 34 H 139/58 H 100 04/18/18 04:00 04/18/18 07:00 04/18/18 07:00 04/18/18 07:00 04/18/18 07:00 Laboratory Results 04/18/18 04:45 04/18/18 04:45 04/17/18 04/18/18 04/19/18 05:59 05:59 05:59 Intake Total 3121 2171 Output Total 2900 2525 180 Balance 221 -354 -180 PT 16.0 SEC (12.0-15.0) H 04/18/18 04:45 INR 1.26 (0.83-1.16) H 04/18/18 04:45 - Time Spent With Patient Time Spent With Patient: 35 min of critical care time spent with patient. Case discussed with Respiratory therapy, nursing and neurology Physical Exam - Physical Exam General Appearance: obtunded, No alert EENT: PERRL/EOMI (Pupils 3 mm and reactive), ET tube Neck: non-tender Respiratory: lungs clear, No respiratory distress, No wheezing Cardiac/Chest: normal peripheral pulses, regular rate, rhythm, systolic murmur Abdomen: normal bowel sounds, non-tender, soft Pelvic Exam: deferred Rectal: deferred Skin: normal color, warm/dry Extremities: non-tender, normal inspection Neuro/Psych: No alert ICD10 Worksheet Patient Problems: Problems Problem Status Onset Acute blood loss anemia Acute Mitral valve regurgitation Acute S/P mitral valve repair Acute ~04/16/18 Depression Chronic
--- NOTE | 2018-04-18 08:52 | NEUROPROG ---
Assessment: Total unit time of 25 min. The patient has encephalopathy of uncertain cause but we are continuing to monitor her progress. I spoke to her sister mother and father this morning who are comfortable with the status of what is happening and hopeful to see more improvements soon. He remains too early to draw any definitive conclusions about her long-term prognosis. I have low suspicion for intracranial edema and do not feel repeat brain imaging is needed currently. Her father asked me questions about that issue and we discussed that in detail. Subjective: The patient has had periods of breaks from sedation and reports are that she will open her eyes and have spontaneous movement of the legs at times and not clearly following commands. Her mother told me that when she spoke her name she seemed open her eyes, but the nurse tells me he is not seeing that consistently occurring. She consistently gags or coughs on the airway when the sedation is weaned. No one has witnessed any clinical seizure activity. Objective: Vital Signs Temp Pulse Resp BP Pulse Ox 37.5 C 82 34 H 139/58 H 100 04/18/18 04:00 04/18/18 07:00 04/18/18 07:00 04/18/18 07:00 04/18/18 07:00 Laboratory Results 04/18/18 04:45 04/18/18 04:45 04/17/18 04/18/18 04/19/18 05:59 05:59 05:59 Intake Total 3121 2171 Output Total 2900 2525 180 Balance 221 -354 -180 PT 16.0 SEC (12.0-15.0) H 04/18/18 04:45 INR 1.26 (0.83-1.16) H 04/18/18 04:45 She just had her sedation weaned prior to my examination and spontaneously opens her eyes intermittently but is not attending to the examiner or following commands. She has a purposeful flexion of the right leg up toward her and less on the left. She is not moving her arms for me. She is not following commands to specifically squeeze. When asked her to move her feet, it was equivocal whether she really understood that. The same can be said for opening closing of the eyes. It was not clear to me that she truly understood what was being stated. Pupils 2 mm and reactive. The extraocular movements are mostly conjugate but not very specifically directed toward the examiner. The EEG from yesterday showed some mild generalized slowing but nothing else more specific and no evidence of electrographic seizures or focal findings. Allergies/Adverse Reactions: No Known Allergies Allergy (Verified 04/09/18 15:57)
--- NOTE | 2018-04-18 09:10 | GOP ---
DATE OF OPERATION: 04/16/2018 SURGEON: Roddy Mullins MD PREOPERATIVE DIAGNOSIS: Severe mitral regurgitation. POSTOPERATIVE DIAGNOSIS: Severe mitral regurgitation. PROCEDURE PERFORMED: Mitral valve repair with resection of the P3 segment of the posterior leaflet, reconstruction and annuloplasty with a 26 mm Physio ring. FINDINGS: The anterior leaflet was well supported. The posterior leaflet had torn chord to the P3 s egment. There was a cleft between P2 and P3. 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 On recent followup she had echocardiography and was found to have lion re mitral regurgitation with an anteriorly directed jet. She was recommended to undergo surgical etienne ve repair for the prevention of heart failure. DESCRIPTION OF PROCEDURE: The patient was taken to the operating room, placed on the operating table in the supine position. After the induction of general anesthesia and double-lumen endotracheal tub e intubation, the patient was prepped and draped sterilely. The right chest was elevated slightly by placing a roll behind the right scapula. After sterile prep and drape, we began by accessing the [facility] pleural space. The right lung was isolated. An incision had been marked on the skin prior to pr ep and drape, and the skin was then opened and the chest was entered through the 4th interspace. The skin was just lateral to the right breast. The left pleural space had been opened. We placed a sof t tissue retractor and then a rigid retractor to gain additional intercostal space. The right common femoral artery and vein were then surgically exposed. Access to the right subclavia n vein was attempted for potential placement of an SVC cannula. However, after multiple passes with the needle, we elected to forego the SVC cannula and place the IVC cannula into the SVC from below. At this point, the patient was fully heparinized. The common femoral artery had been previously expo sed. It was occluded with a side-biter clamp and then sewn end-to-side. An aortotomy was created an d an 8 mm cannula graft was sewn end-to-side to the right common femoral artery. This was then used as an arterial cannula on the vein. We then placed a pursestring and a 25-Albanian dual stage long jia ous cannula was then placed over the wire from the right common femoral vein into the superior vena c wade. This was confirmed by both transesophageal echo and palpation. Next, cardiopulmonary bypass was instituted. The pericardium had been opened. Retraction stitches w ere placed. We placed a vent stitch in the aorta, and the cardioplegia needle was then also placed u neventfully in the ascending aorta. The transthoracic cross-clamp was then brought up onto the field and through a separate stab incision, the transthoracic clamp was placed and the heart was arrested with 1 L of [place] solution. The left atrium was then opened and Dr. Gunderson positioned the left atr ial retractor through the chest wall anteriorly. Of note, the left atrium was somewhat small on this relatively small patient. The valve itself was also small. The valve itself measured ultimately to be a 26 mm ring. On inspection of the valve, the anterior leaflet was well supported. The posterio r leaflet, however, was demonstrating a torn cord to the P3 segment in the cleft between P2 and P3. I then resected the P3 segment. The remnant of the P3 was then reconstructed with a 4-0 ProNova simu ltaneously closing the cleft between P2 and P3. Once this had been completed, we then again sized to a 26 mm ring. The sutures had been placed around the anulus, and a 26 mm ring was then seated witho ut difficulty. We then tested the valve again. There appeared to be a trace of a leak at the canvas products sales representative omedial commissure and so commissuroplasty was performed again with 4-0 ProNova suture. While this w as going on, it was noted that there seemed to be an increased need of medications to support the blo od pressure. Perfusion pressure was somewhat on the low side and this was being treated with medicat ion, but then there was some sustained low blood pressure. We looked at the cannula on the right zully e. There was good palpable pressure within the cannula. The common femoral artery also had a good p ressure in it by palpation. We looked to be sure the drugs were getting in, and we looked at the yoselyn cending aorta with transesophageal echo in an effort to look for potential dissection. We also looke d for sources of blood loss that might explain the low pressure; however, none were identified. At this point, I felt compelled to change the cannula to the opposite side, so I cut down on the left common femoral artery. We switched to a Bio-Medicus cannula, which was placed directly into the ves rik. The cannula graft on the right side was disconnected from the heart-lung machine. We switched over uneventfully and resumed perfusion. With this maneuver, there was a gradual increase in the per fusion pressure. There was concern that perhaps the cannula graft on the right side had suddenly bec ome compromised and so I clamped the right common femoral artery proximally and distally. I took the cannula graft off the artery by removing the suture and removing the graft entirely and inspected th e vessel directly. I expected perhaps to see evidence of dissection or vessel injury; however, there was none. We then checked for backbleeding from this same vessel, and it was brisk. This artery wa s then directly repaired with Prolene suture. There was good Doppler signal in that vessel after nayana sure. The left atrium was then closed by Dr. Gunderson. The cross-clamp was removed. We considered treating t he patient for vaso plegia; however, as time went by, the pressure gradually improved. We also look ed at the cardioplegia needle in the root to make sure there had not been any vascular injury there, and there was none. We had confirmed good flow both into the heart from the cardioplegia needle and good blood return from it while the clamp was in place. We then the patient from cardiopul monary bypass. The post pump transesophageal echo shows normally functioning mitral valve with no re sidual mitral regurgitation. The protamine was administered. The patient was then decannulated on t he left side. This vessel was also directly repaired with suture and Doppler was then used to confir m flow in that vessel. A 28-Albanian chest tube was placed through one of the stab incisions, and veritoti leonaly we had removed the vent, repaired the vent hole and the aorta, and then once hemostasis had be en achieved and the protamine had been administered, the ribs were reapproximated by myself using a # 1 intercostal suture. The subcutaneous musculature and skin were closed with running Vicryl suture. The patient was hemodynamically stable. Although she was breathing spontaneously, she was not awake enough for extubation in the OR and therefore was transferred to the ICU in stable condition. Follo wing this, we did meet with the family and discussed the intraoperative issues. Ultimately, the nahum ent was in the ICU with stable hemodynamics and no evidence of bleeding. CO-SURGEON: Javier Gunderson DO. /[id number]/MODL
[2018-04-18] MEDS ORDERED: POTASSIUM Cl (KCl) 50 ML IV ONE ×2 (09:14→18:06)
[2018-04-18] MEDS: MUPIROCIN 2% 22 GM OINT NS SCH ×2 (09:28→21:53)
[2018-04-18] MEDS: PANTOPRAZOLE SODIUM 40 MG VIAL IVP SCH (09:40)
[2018-04-18] MEDS: SENNOSIDES/DOCUSATE SODIUM TAB PO SCH ×2 (09:42→21:53)
[2018-04-18] MEDS: METOCLOPRAMIDE 10 MG/2 ML VIAL IVP SCH ×3 (10:23→23:56)
[2018-04-18] MEDS ORDERED: KETOROLAC 30 MG/1 ML SDV IVP SCH (12:00)
[2018-04-18] MEDS ORDERED: POTASSIUM Cl (KCl) 20 MEQ/50 ML BAG IV ONE (18:11)
[2018-04-18] MEDS: HYDROCODONE/APAP 5/325 TAB PO PRN ×2 (19:11→23:56)
[2018-04-18] MEDS: FLUoxetine 20 MG CAP PO SCH (21:53)
[2018-04-19 04:26] LABS: INR 1.11 (0.83-1.16); PROTIME(PATIENT) 14.5 SEC (12.0-15.0)
[2018-04-19] MEDS ORDERED: POTASSIUM Cl (KCl) 50 ML IV ONE (05:10)
[2018-04-19] MEDS: METOCLOPRAMIDE 10 MG/2 ML VIAL IVP SCH ×3 (05:34→18:04)
[2018-04-19] MEDS: PROPOFOL/EMULSION 100 ML IV SCH ×2 (05:35→22:15)
[2018-04-19] MEDS: PETROLAT,WHT/MIN OIL/SOD CHL 3.5 GM OPHT.OINT EACHEYE SCH ×3 (06:10→18:06)
[2018-04-19] MEDS: HYDROCODONE/APAP 5/325 TAB PO PRN (06:45)
--- NOTE | 2018-04-19 07:16 | SOAPPROG ---
SOAP Progress Note Assessment/Plan: POD #3: MICS complex MV repair w #26 Physio ring, access mini right thoracotomy , femoral CPB with primary repair Severe MR with torn chord to P3 segment s/p MICS complex repair - continue AT, CTs to pleurovac (1 CT 200/shift), and FC. Coumadin as per protocol when appropriate. Encephalopathy secondary to hypoperfusion - prognosis remains critical. Mgmt as per neurology. Acute expected blood loss anemia with thrombocytopenia and mild coagulopathy - stable after multiple units of PRBC. No evidence active bleeding. Monitor. DVT prophylaxis - SCDs. Nutrition - tube feeds as per protocol. Subjective: Sedated. Objective: Vital Signs Temp Pulse Resp BP Pulse Ox 36.8 C 93 16 112/56 L 99 04/19/18 04:00 04/19/18 06:00 04/19/18 06:00 04/19/18 06:00 04/19/18 06:00 Laboratory Results 04/19/18 04:00 04/19/18 04:00 04/18/18 04/19/18 04/20/18 05:59 05:59 05:59 Intake Total 2171 1397 Output Total 2525 1720 Balance -354 -323 PT 14.5 SEC (12.0-15.0) 04/19/18 04:00 INR 1.11 (0.83-1.16) 04/19/18 04:00 Physical Exam - Physical Exam General Appearance: unresponsive EENT: ET tube Neck: normal inspection Respiratory: No respiratory distress Cardiac/Chest: regular rate, rhythm Abdomen: non-tender, soft, No distended Skin: normal color, warm/dry Extremities: pedal edema Neuro/Psych: motor weakness, sensory deficit, cognition abnormalities, other ( not following commands ) ICD10 Worksheet Patient Problems: Problems Problem Status Onset Acute blood loss anemia Acute Mitral valve regurgitation Acute S/P mitral valve repair Acute ~04/16/18 Depression Chronic
--- NOTE | 2018-04-19 08:45 | NEUROPROG ---
Assessment: Total unit time of 25 min. The patient has encephalopathy of uncertain cause but we are continuing to monitor her progress. I spoke to her sister mother and father this morning who are comfortable with the status of what is happening and hopeful to see more improvements soon. He remains too early to draw any definitive conclusions about her long-term prognosis. I have low suspicion for intracranial edema and do not feel repeat brain imaging is needed currently. Her father asked me questions about that issue and we discussed that in detail. 04/19/18: Today's 25 min total unit time has led to the conclusion that there is no sign of improvement in the last 48 hr. I think it would be helpful for our prognosis to obtain brain MRI if acceptable through cardiothoracic surgery at this time to look for any evidence of hypoxic ischemic injury. Family is comfortable with this. I will be leaving the service after today and my partner will follow up tomorrow, Dr. Waldron. Subjective: This morning, the patient appears to be about the same and family says she was perhaps a little more alert yesterday at times but still not convincing that she is recognizing she looks sad or maintaining concentration and attention in a purposeful way. She is not clearly following commands. There tends to be the same pattern over the last 3 days. No clinical seizure activity has been seen. Objective: Vital Signs Temp Pulse Resp BP Pulse Ox 36.8 C 102 H 17 150/73 H 100 04/19/18 04:00 04/19/18 08:00 04/19/18 08:00 04/19/18 08:00 04/19/18 08:00 Laboratory Results 04/19/18 04:00 04/19/18 04:00 04/18/18 04/19/18 04/20/18 05:59 05:59 05:59 Intake Total 2171 1397 Output Total 2525 1720 Balance -354 -323 PT 14.5 SEC (12.0-15.0) 04/19/18 04:00 INR 1.11 (0.83-1.16) 04/19/18 04:00 She again is opening her eyes with voice temporarily but no sustained attention is maintained eye movements are typically conjugate although the nurses seen some mild dysconjugate appearance at times. She has a tendency to flex the right lower extremity and move it more than the left lower extremity. We are not seeing movement spontaneous in the arms. Allergies/Adverse Reactions: No Known Allergies Allergy (Verified 04/09/18 15:57)
--- NOTE | 2018-04-19 08:53 | PDINTPN ---
Electrical Intern Progress Note Assessment/Plan: Assessment/Plan: * Mitral regurgitation * Status post mitral valve repair * Encephalopathy-secondary to low pressure intraoperatively. Minimal improvement -frequent neuro checks -appreciate Neurology help * Acute respiratory failure-stable on mechanical ventilation -hold assessment for extubation until mental status improves * Anemia-improved post transfusion * Sedation-adequate -will keep Precedex as low as possible -continue sedation vacations * Thrombocytopenia-stable but low. -follow * Mild renal insufficiency-creatinine 1.2 -follow * Transaminitis-mild elevations in both AST and ALT. Improved -follow * VT prophylaxis * Stress ulcer prophylaxis * Nutrition-on hold Subjective: Coma. Become somewhat agitated when off sedation Objective: Vital Signs Temp Pulse Resp BP Pulse Ox 36.8 C 102 H 17 150/73 H 100 04/19/18 04:00 04/19/18 08:00 04/19/18 08:00 04/19/18 08:00 04/19/18 08:00 Laboratory Results 04/19/18 04:00 04/19/18 04:00 04/18/18 04/19/18 04/20/18 05:59 05:59 05:59 Intake Total 2171 1397 Output Total 2525 1720 Balance -354 -323 PT 14.5 SEC (12.0-15.0) 04/19/18 04:00 INR 1.11 (0.83-1.16) 04/19/18 04:00 - Time Spent With Patient Time Spent With Patient: 35 min of critical care time spent with patient. Case discussed with Respiratory therapy, nursing, cardiothoracic surgery and family Physical Exam - Physical Exam General Appearance: obtunded, No alert EENT: PERRL/EOMI, ET tube Neck: non-tender Respiratory: crackles (Few basilar), No respiratory distress, No wheezing Cardiac/Chest: normal peripheral pulses, regular rate, rhythm Abdomen: normal bowel sounds, non-tender, soft Pelvic Exam: deferred Rectal: deferred Skin: warm/dry Extremities: non-tender Neuro/Psych: No alert ICD10 Worksheet Patient Problems: Problems Problem Status Onset Acute blood loss anemia Acute Mitral valve regurgitation Acute S/P mitral valve repair Acute ~04/16/18 Depression Chronic
[2018-04-19] MEDS: PANTOPRAZOLE SODIUM 40 MG VIAL IVP SCH (08:59)
[2018-04-19] MEDS: SENNOSIDES/DOCUSATE SODIUM TAB PO SCH ×2 (08:59→09:03)
[2018-04-19] MEDS ORDERED: LACTULOSE 20 GM/30 ML UDCUP TUBE PRN (09:30)
[2018-04-19] MEDS ORDERED: ONDANSETRON DISINTEGRATING 4 MG TAB TUBE PRN (09:30)
[2018-04-19] MEDS ORDERED: MAGNESIUM HYDROXIDE 30 ML UDCUP TUBE PRN (09:30)
[2018-04-19] MEDS ORDERED: POLYETHYLENE GLYCOL 3350 17 GM PKT TUBE PRN (09:30)
[2018-04-19] MEDS: SENNOSIDES 17.6 MG/10 ML UDL TUBE SCH ×3 (09:51→19:57)
[2018-04-19] MEDS: HYDROCODONE/APAP 5/325 TAB TUBE PRN ×2 (15:13→19:23)
[2018-04-19] MEDS: ONDANSETRON 4 MG/2 ML VIAL IVP PRN (16:04)
--- NOTE | 2018-04-19 18:36 | NEUROPROG ---
Assessment: Total unit time of 25 min. The patient has encephalopathy of uncertain cause but we are continuing to monitor her progress. I spoke to her sister mother and father this morning who are comfortable with the status of what is happening and hopeful to see more improvements soon. He remains too early to draw any definitive conclusions about her long-term prognosis. I have low suspicion for intracranial edema and do not feel repeat brain imaging is needed currently. Her father asked me questions about that issue and we discussed that in detail. 04/19/18: Today's 25 min total unit time has led to the conclusion that there is no sign of improvement in the last 48 hr. I think it would be helpful for our prognosis to obtain brain MRI if acceptable through cardiothoracic surgery at this time to look for any evidence of hypoxic ischemic injury. Family is comfortable with this. I will be leaving the service after today and my partner will follow up tomorrow, Dr. Waldron. 04/19/18: 45 minute family conference with detailed review of current situation with the MRI showing bilateral changes of global ischemic change. I answered questions about the prognosis being uncertain but can only hope for improvement over time and recognize that there is certainly concern that this may be a very slow process and may not achieve full recovery. Objective: Vital Signs Temp Pulse Resp BP Pulse Ox 38 C 108 H 20 162/81 H 98 04/19/18 16:00 04/19/18 18:00 04/19/18 18:00 04/19/18 18:00 04/19/18 18:00 Laboratory Results 04/19/18 04:00 04/19/18 04:00 04/18/18 04/19/18 04/20/18 05:59 05:59 05:59 Intake Total 2171 1397 953 Output Total 2095 1720 1035 Balance -354 -323 -82 PT 14.5 SEC (12.0-15.0) 04/19/18 04:00 INR 1.11 (0.83-1.16) 04/19/18 04:00 Allergies/Adverse Reactions: No Known Allergies Allergy (Verified 04/09/18 15:57)
[2018-04-19] MEDS: FLUoxetine 20 MG CAP TUBE SCH (19:54)
[2018-04-19] MEDS: DOCOSANOL 2 GM CREAM TP SCH (21:22)
[2018-04-19] MEDS: ACETAMINOPHEN 650 MG/20.3 ML UDCUP TUBE PRN (21:39)
[2018-04-19] MEDS: POTASSIUM Cl (KCl) 50 ML IV SCH ×3 (21:40→23:12)
--- NOTE | 2018-04-19 23:54 | SOAPPROG ---
SOAP Progress Note Assessment/Plan: Assessment: 45 min family, neuro, spiritual,nursing reviewing all aspects of care, concerns and short term plans trach next week pending clinical course PICC line, watch for infections,aspiration, etc all concerns addressed, very appreciative of all care provided father thanked me privately for Dr Mullins and my attempts to save her life Plan: 04/19/18 23:49 Objective: Vital Signs Temp Pulse Resp BP Pulse Ox 37.8 C 105 H 15 155/74 H 94 04/19/18 23:00 04/19/18 23:34 04/19/18 23:34 04/19/18 23:00 04/19/18 23:34 Laboratory Results 04/19/18 04:00 04/19/18 19:40 04/18/18 04/19/18 04/20/18 05:59 05:59 05:59 Intake Total 2171 1397 953 Output Total 2525 1720 1452 Balance -354 -628 -849 PT 14.5 SEC (12.0-15.0) 04/19/18 04:00 INR 1.11 (0.83-1.16) 04/19/18 04:00 ICD10 Worksheet Patient Problems: Problems Problem Status Onset Acute blood loss anemia Acute Mitral valve regurgitation Acute S/P mitral valve repair Acute ~04/16/18 Depression Chronic
[2018-04-20] MEDS: PETROLAT,WHT/MIN OIL/SOD CHL 3.5 GM OPHT.OINT EACHEYE SCH ×5 (00:02→23:04)
[2018-04-20] MEDS: METOCLOPRAMIDE 10 MG/2 ML VIAL IVP SCH ×5 (00:02→23:03)
[2018-04-20] MEDS: HYDROCODONE/APAP 5/325 TAB TUBE PRN ×2 (02:19→06:23)
[2018-04-20 04:44] LABS: INR 1.09 (0.83-1.16); PROTIME(PATIENT) 14.3 SEC (12.0-15.0)
[2018-04-20] MEDS: DOCOSANOL 2 GM CREAM TP SCH ×5 (05:28→22:29)
[2018-04-20] MEDS: POTASSIUM Cl (KCl) 50 ML IV SCH ×6 (06:05→20:21)
[2018-04-20] MEDS: PROPOFOL/EMULSION 100 ML IV SCH (06:09)
--- NOTE | 2018-04-20 07:07 | SOAPPROG ---
SOAP Progress Note Assessment/Plan: POD #4: MICS complex MV repair w #26 Physio ring, access mini right thoracotomy , femoral CPB with primary repair Severe MR with torn chord to P3 segment s/p MICS complex repair - CT/AL to be removed. FC to remain. Valve thromboprophylaxis with ASA alone. Encephalopathy secondary to hypoperfusion with ischemic/anoxic injury - prognosis remains critical. Plan for future trach/PEG. Neurology following. Acute expected blood loss anemia with thrombocytopenia and mild coagulopathy - stable after multiple units of PRBCs. No evidence active bleeding. Monitor. DVT prophylaxis - SCDs. Nutrition - tube feeds as per protocol. Access: IJ line to be replaced with PICC Subjective: Unresponsive. Objective: Vital Signs Temp Pulse Resp BP Pulse Ox 37.2 C 95 14 138/65 H 100 04/20/18 04:00 04/20/18 06:00 04/20/18 06:00 04/20/18 06:00 04/20/18 06:00 Laboratory Results 04/20/18 04:15 04/20/18 04:15 04/19/18 04/20/18 04/21/18 05:59 05:59 05:59 Intake Total 1397 1990 Output Total 1720 1957 Balance -323 34 PT 14.3 SEC (12.0-15.0) 04/20/18 04:15 INR 1.09 (0.83-1.16) 04/20/18 04:15 Physical Exam - Physical Exam General Appearance: no apparent distress, unresponsive EENT: ET tube Neck: normal inspection Respiratory: No respiratory distress Cardiac/Chest: regular rate, rhythm Abdomen: non-tender, soft, No distended Skin: normal color, warm/dry, other (all wounds C/D/I) Extremities: pedal edema Neuro/Psych: other (unresponsive ) ICD10 Worksheet Patient Problems: Problems Problem Status Onset Acute blood loss anemia Acute Mitral valve regurgitation Acute S/P mitral valve repair Acute ~04/16/18 Depression Chronic
[2018-04-20] MEDS: SENNOSIDES 17.6 MG/10 ML UDL TUBE SCH ×2 (08:19→20:21)
[2018-04-20] MEDS: PANTOPRAZOLE SODIUM 40 MG VIAL IVP SCH (08:19)
[2018-04-20] MEDS: ASPIRIN 81 MG CHEWABLE TAB TUBE SCH (10:50)
--- NOTE | 2018-04-20 14:38 | PDINTPN ---
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 # anoxic/ischemic brain injury # encephalopathy # MR s/p MVR # respiratory failure PLAN # extubate today if able # minimize sedation # D5W 1/2 NS w 20 KCl until dobhoff is placed # delirium precautions # appreciate neurology and CTS management # Feeding - holding TFs for extubation # Analgesia none # Sedation none # Thromboprophylaxis - SCDs, holding sq hep in setting of ischemic related hemorrhage # Head of bed elevated # Ulcer prophylaxis - H2 caty # Glucose SSI # Skin no skin breakdown # Delirium - delirium precautions ABX none EVENTS 02/21/18 intubation, bronchoscopy IMAGING 04/19/18 MRI brain - findings consistent with ischemic/anoxic brain injury involving bilateral caudate nuclei extending to the periventricular white matter and putamen. Subtle anoxic injury at parietal occipital junction as well as possible superior frontal lobes. focal punctate hemorrhage and right anterior lateral cerebellar lobe as well as the occipital lobes. Subjective: Subjective and review of systems unable to obtain due to patient's mental status. Remains sedated on propofol and intubated. MRI brain yesterday concerning for diffuse anoxic brain injury Objective: Vital Signs Temp Pulse Resp BP Pulse Ox 38.0 C 100 20 113/55 L 100 04/20/18 12:00 04/20/18 13:00 04/20/18 13:00 04/20/18 13:00 04/20/18 13:00 Laboratory Results 04/20/18 04:15 04/20/18 04:15 04/19/18 04/20/18 04/21/18 05:59 05:59 05:59 Intake Total 1397 1990 Output Total 1720 1956 Balance -323 34 PT 14.3 SEC (12.0-15.0) 04/20/18 04:15 INR 1.09 (0.83-1.16) 04/20/18 04:15 Physical Exam - Physical Exam General Appearance: obtunded EENT: pharynx normal, ET tube Neck: supple, normal inspection Respiratory: chest non-tender, lungs clear Cardiac/Chest: normal peripheral pulses, regular rate, rhythm Abdomen: normal bowel sounds, non-tender Rectal: deferred, normal exam Extremities: No pedal edema, No swelling Neuro/Psych: other (Sedated, obtunded pupils reactive to light, minimal response to pain) ICD10 Worksheet Patient Problems: Problems Problem Status Onset Acute blood loss anemia Acute Mitral valve regurgitation Acute S/P mitral valve repair Acute ~04/16/18 Depression Chronic
--- NOTE | 2018-04-20 15:18 | NEUROPROG ---
Assessment: Visit spent mostly in counseling and coordination of care. 65 mins spent in direct patient care activities on the floor. Case discussed with ICU team. Assuming care from Dr. Corrales. Prior notes reviewed. Patient admitted 04/16 for mitral valve surgery with indication of relative hypoperfusion during procedure. Patient remains unresponsive, but extubated today and is hemodynamically stable and breathing well. Exam reveals the patient the be unresponsive and nonverbal, mouth agape. The eyes are open with roving eye movements. Pupils 4mm round and reactive. No blink to threat. No oculocephalics. Corneals intact. Face appears symmetric. Did not gag so not to possibly cause vomiting. She has no purposeful movements in the extremities. With even the slightest tactile stim she has extensor posturing in the BUEs. The RLE has rather profound triple flexion, with minimal triple flexion in the LLE. Has some increased tone in all extremities. Plantars are extensor bilaterally and DTRs brisk. MRI reviewed which reveals DWI and T2 FLAIR hyperintensity in the bilateral caudate, putamen and white matter above the striatum. Signal changes also present in the bilateral parieto-occipital cortex and to a lesser extent the bilateral frontal cortex. Overall, her brainstem reflexes are preserved, but I do not see any meaningful cerebral function. This is concordant with the MRI findings which suggest diffuse anoxic injury. Overall her prognosis for functional neurologic recovery is poor. Time will tell regarding any neurologic improvement. At this point would continue to support her perfusion and other organ systems. I spent 50 minutes discussing the situation with patient's parents and her sister. Will sign off. Recall PRN. Objective: Vital Signs Temp Pulse Resp BP Pulse Ox 38.0 C 115 H 26 H 138/84 H 97 04/20/18 12:00 04/20/18 14:00 04/20/18 14:00 04/20/18 14:00 04/20/18 14:00 Laboratory Results 04/20/18 04:15 04/20/18 04:15 04/19/18 04/20/18 04/21/18 05:59 05:59 05:59 Intake Total 1397 1990 Output Total 2000 1956 Balance -323 34 PT 14.3 SEC (12.0-15.0) 04/20/18 04:15 INR 1.09 (0.83-1.16) 04/20/18 04:15 Allergies/Adverse Reactions: No Known Allergies Allergy (Verified 04/09/18 15:57)
[2018-04-20] MEDS: D5W 1/2 NS W/ 20 KCl/L 1,000 ML IV SCH (15:27)
[2018-04-20] MEDS: fentaNYL 100 MCG/2 ML INJ IVP PRN ×2 (15:47→15:49)
[2018-04-20] MEDS ORDERED: fentaNYL 100 MCG/2 ML INJ IVP PRN (16:28)
--- NOTE | 2018-04-20 16:36 | ASMTCMCOM ---
CM Note CM Note Notes: Met with pt father Griffin per his request, pt parents reside in [place] and are overwhelmed by current circumstances. 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 Several phone calls and voicemails left with various [employer] offices with no luck reaching anyone. This CM suspects administration staff offices are closed this week and potentially next week, this CM prepared Griffin this may be likely. Pt sister Saida is present at hospital and is also a [employer] student. Griffin reports he and/or his Rocio need to get back to [place] soon but are challenged by the timing because they want to make sure they are here for pt next MRI/CT. Pt extubated today, it has still not been appropriate for therapies to eval. CM to follow pt and family who may require increased support/assistance considering all the complexities. Date Signed: 04/20/2018 04:36 PM Electronically Signed By:CHANTELLE Vega
[2018-04-20] MEDS: ACETAMINOPHEN 650 MG SUPP PR PRN (17:11)
[2018-04-20] MEDS: FLUoxetine 20 MG CAP TUBE SCH (20:21)
[2018-04-21] MEDS ORDERED: POTASSIUM Cl (KCl) 50 ML IV SCH (05:45)
[2018-04-21] MEDS: METOCLOPRAMIDE 10 MG/2 ML VIAL IVP SCH (06:18)
[2018-04-21] MEDS: POTASSIUM Cl (KCl) 50 ML IV SCH ×3 (06:18→07:55)
[2018-04-21] MEDS: PETROLAT,WHT/MIN OIL/SOD CHL 3.5 GM OPHT.OINT EACHEYE SCH ×4 (06:18→23:14)
[2018-04-21] MEDS: DOCOSANOL 2 GM CREAM TP SCH ×6 (06:19→21:02)
--- NOTE | 2018-04-21 07:33 | SOAPPROG ---
SOAP Progress Note Assessment/Plan: POD #5: MICS complex MV repair w #26 Physio ring, access mini right thoracotomy , femoral CPB with primary repair Severe MR with torn chord to P3 segment s/p MICS complex repair - CT/AL removed. FC remains for AMS. Valve thromboprophylaxis with ASA alone. Encephalopathy secondary to hypoperfusion with ischemic/anoxic injury - prognosis remains critical. Plan for future PEG pending family meeting. Acute expected blood loss anemia with thrombocytopenia and mild coagulopathy - stable after multiple units of PRBCs. No evidence active bleeding. Monitor. DVT prophylaxis - SCDs. Nutrition - held for now. Access: LUE PICC. Subjective: Unresponsive. Objective: Vital Signs Temp Pulse Resp BP Pulse Ox 37.6 C 119 H 24 H 137/93 H 99 04/21/18 06:00 04/21/18 06:00 04/21/18 06:00 04/21/18 06:00 04/21/18 06:00 Laboratory Results 04/21/18 04:55 04/21/18 04:55 04/20/18 04/21/18 04/22/18 05:59 05:59 05:59 Intake Total 1990 1478 Output Total 1956 2225 Balance 34 -746 PT 14.3 SEC (12.0-15.0) 04/20/18 04:15 INR 1.09 (0.83-1.16) 04/20/18 04:15 Physical Exam - Physical Exam General Appearance: no apparent distress Neck: normal inspection Respiratory: respiratory distress Cardiac/Chest: tachycardia Abdomen: non-tender, soft, No distended Skin: normal color, warm/dry Extremities: pedal edema Neuro/Psych: abnormal cerebellar tests, abnormal prepress operator II-XII, motor weakness, sensory deficit, cognition abnormalities, speech abnormalities ICD10 Worksheet Patient Problems: Problems Problem Status Onset Acute blood loss anemia Acute Mitral valve regurgitation Acute S/P mitral valve repair Acute ~04/16/18 Depression Chronic
[2018-04-21] MEDS: ASPIRIN 81 MG CHEWABLE TAB TUBE SCH (07:56)
[2018-04-21] MEDS: SENNOSIDES 17.6 MG/10 ML UDL TUBE SCH ×2 (07:56→19:25)
[2018-04-21] MEDS: PANTOPRAZOLE SODIUM 40 MG VIAL IVP SCH (08:08)
[2018-04-21] MEDS: ACETAMINOPHEN 650 MG SUPP PR PRN ×3 (08:08→21:01)
--- NOTE | 2018-04-21 08:35 | PDINTPN ---
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 # anoxic/ischemic brain injury # encephalopathy # MR s/p MVR # respiratory failure # paroxysmal sympathetic hyperactivity PLAN # GI consult for PEG placement # D5W 1/2 NS w 20 KCl until enteral access is established # morphine as needed for autonomic hyperreactivity # will start SSRI after PEG placed to increase chances of improved functional outcomes) (extrapolating from CVA literature) as well as a history of anxiety # delirium precautions # appreciate neurology and CTS management # Analgesia morphine # Sedation none # Thromboprophylaxis - SCDs, holding sq hep in setting of ischemic related hemorrhage and pending PEG placement # Head of bed elevated # Ulcer prophylaxis - H2 caty # Glucose SSI # Skin no skin breakdown # Delirium - delirium precautions ABX none IMAGING 04/19/18 MRI brain - findings consistent with ischemic/anoxic brain injury involving bilateral caudate nuclei extending to the periventricular white matter and putamen. Subtle anoxic injury at parietal occipital junction as well as possible superior frontal lobes. focal punctate hemorrhage and right anterior lateral cerebellar lobe as well as the occipital lobes. 04/21/18 12:09 Subjective: Extubated yesteday. Family meetings with neurology and intensive care physicians explaining to family the severity of her neurologic injury. R sided triple flexion, some coughing and moaning with associated tachyardia relieved with morphine. Low grade fever this AM. Objective: Vital Signs Temp Pulse Resp BP Pulse Ox 38.5 C H 129 H 32 H 168/99 H 95 04/21/18 08:00 04/21/18 08:00 04/21/18 08:00 04/21/18 08:00 04/21/18 08:00 Laboratory Results 04/21/18 04:55 04/21/18 04:55 04/20/18 04/21/18 04/22/18 05:59 05:59 05:59 Intake Total 1990 1478 Output Total 1956 8426 Balance 34 -746 PT 14.3 SEC (12.0-15.0) 04/20/18 04:15 INR 1.09 (0.83-1.16) 04/20/18 04:15 Physical Exam - Physical Exam General Appearance: obtunded, unresponsive EENT: normal ENT inspection Neck: supple, normal inspection Respiratory: chest non-tender, lungs clear Cardiac/Chest: normal peripheral pulses, regular rate, rhythm Abdomen: normal bowel sounds, non-tender Skin: normal color, warm/dry, No cyanosis Neuro/Psych: other (Obtunded, right-sided triple flexion, with some left-sided the silver posturing. Intermittently moaning nonpurposeful movements to pain) ICD10 Worksheet Patient Problems: Problems Problem Status Onset Acute blood loss anemia Acute Mitral valve regurgitation Acute S/P mitral valve repair Acute ~04/16/18 Depression Chronic
--- NOTE | 2018-04-21 16:48 | GCON ---
INPATIENT CONSULTATION DATE OF CONSULTATION: 04/21/2018 REFERRING PHYSICIAN: Cliff Angel MD I was kindly requested to see this patient by Dr. Cliff Angel in consultation for chief complaint of feeding difficulties. She is an unfortunate 23-year-old white female who suffered apparent anoxic brain damage during a mitral valve repair procedure. This was on April 07. Her neurologic status has not improved to the point where it is expected she will be able to maintain nutrition on her own in the near future. Therefore, discussions for placement of a PEG tube have occurred between her care team and the family. They wish to proceed. No history of gastric surgery. She is on aspirin after her mitral valve procedure, but no obvious history of bleeding. PAST MEDICAL HISTORY: 1. As above. 2. Otherwise, noncontributory. INPATIENT MEDICATIONS: Include the above, she is on IV fluids. ALLERGIES: No known drug allergies. SOCIAL HISTORY: Negative for alcohol abuse. FAMILY HISTORY: Negative for similar feeding difficulties. REVIEW OF SYSTEMS: Positive pertinent review of systems as per my HPI. Otherwise, complete review of systems is negative. PHYSICAL EXAM: CONSTITUTIONAL: Obtunded, unresponsive. SKIN: Warm, dry. EAR , NOSE, MOUTH, AND THROAT: Oropharynx without masses, moist mucosa. CARDIOVASCULAR: Normal S2, normal PMI. RESPIRATORY: Lungs clear to auscultation and percussion anteriorly. GASTROINTESTINAL: Normal bowel sounds , no masses felt. NEUROLOGIC, PSYCHIATRIC, AND MUSCULOSKELETAL: Obtunded, with right-sided triple flexion, with some intermittent moaning and nonpurposeful movements. LABORATORIES: Platelet count of 102,000. Hematocrit stable at 28.7%. Normal coags. Normal basic metabolic panel. ASSESSMENT: 1. Feeding difficulties. Indeed, it is suspected that the patient will not be able to maintain adequate nutrition on her own for some time. Therefore, it is certainly reasonable to place a PEG feeding tube. With her being recently intubated, neurologic status, ICU care, etc., she certainly is at increased risk for this procedure. However, suspected benefits outweigh the risks, and suspect she will do well. 2. We will recheck her platelet count tomorrow, prior to the procedure, to make sure above 50,000. 3. One dose of Unasyn preprocedure. 4. Otherwise, we will place PEG tomorrow. The above was discussed with the patient's father. I went over the risks and benefits of the procedure, and he wishes to proceed. Thank you for allowing me to help in the management of the patient. /[id number]/MODL MTDD
[2018-04-21] MEDS: METOPROLOL TARTRATE 5 MG/5 ML INJ IVP PRN ×2 (17:20→23:11)
[2018-04-21] MEDS ORDERED: POTASSIUM Cl (KCl) 50 ML IV ONE (18:00)
[2018-04-21] MEDS: FLUoxetine 20 MG CAP TUBE SCH (19:25)
[2018-04-22] MEDS: D5W 1/2 NS W/ 20 KCl/L 1,000 ML IV SCH ×2 (01:54→20:13)
[2018-04-22] MEDS: METOPROLOL TARTRATE 5 MG/5 ML INJ IVP PRN ×2 (04:30→11:31)
[2018-04-22] MEDS: PETROLAT,WHT/MIN OIL/SOD CHL 3.5 GM OPHT.OINT EACHEYE SCH ×3 (05:12→17:25)
[2018-04-22] MEDS: DOCOSANOL 2 GM CREAM TP SCH ×5 (05:12→20:44)
[2018-04-22] MEDS: POTASSIUM Cl (KCl) 50 ML IV SCH ×3 (06:33→09:11)
--- NOTE | 2018-04-22 06:45 | SOAPPROG ---
SOAP Progress Note Assessment/Plan: POD #6: MICS complex MV repair w #26 Physio ring, access mini right thoracotomy , femoral CPB with primary repair Severe MR with torn chord to P3 segment s/p MICS complex repair - CT/AL removed. FC remains for AMS. Valve thromboprophylaxis with ASA alone. Encephalopathy secondary to hypoperfusion with ischemic/anoxic injury - prognosis remains critical. Plan for PEG today as per GI. Acute expected blood loss anemia with thrombocytopenia - stable after multiple units of PRBCs. No evidence active bleeding. Monitor. Respiratory insufficiency - extubated without incident. Remains tachypneic. Narcotics avoided d/t encephalopathy. DVT prophylaxis - SCDs. Nutrition - TFs once PRG place, continue IVF. Access: LUE PICC. Subjective: Unresponsive. Objective: Vital Signs Temp Pulse Resp BP Pulse Ox 37.3 C 121 H 20 140/82 H 94 04/22/18 04:00 04/22/18 05:15 04/22/18 05:15 04/22/18 05:15 04/22/18 05:15 Laboratory Results 04/22/18 05:00 04/22/18 05:00 04/21/18 04/22/18 04/23/18 05:59 05:59 05:59 Intake Total 1479 1489 Output Total 2225 1900 Balance -746 -411 PT 14.3 SEC (12.0-15.0) 04/20/18 04:15 INR 1.09 (0.83-1.16) 04/20/18 04:15 Physical Exam - Physical Exam General Appearance: no apparent distress Neck: normal inspection Respiratory: respiratory distress (tachypneic ) Cardiac/Chest: tachycardia Abdomen: non-tender, soft, No distended Skin: normal color, warm/dry Extremities: pedal edema Neuro/Psych: abnormal planer feeder II-XII, motor weakness, sensory deficit ICD10 Worksheet Patient Problems: Problems Problem Status Onset Acute blood loss anemia Acute Mitral valve regurgitation Acute S/P mitral valve repair Acute ~04/16/18 Depression Chronic
[2018-04-22] MEDS: ASPIRIN 81 MG CHEWABLE TAB TUBE SCH (07:57)
[2018-04-22] MEDS: SENNOSIDES 17.6 MG/10 ML UDL TUBE SCH ×2 (07:57→20:20)
[2018-04-22] MEDS ORDERED: AMPICILLIN/SULBACTAM 3 GM in NS 100 ML IV ONE (08:00)
[2018-04-22] MEDS: ACETAMINOPHEN 650 MG SUPP PR PRN (08:18)
[2018-04-22] MEDS: KETOROLAC 15 MG/1 ML SDV IVP PRN ×2 (09:08→17:29)
[2018-04-22] MEDS: PANTOPRAZOLE SODIUM 40 MG VIAL IVP SCH (09:11)
--- NOTE | 2018-04-22 11:25 | ASMTCMCOM ---
CM Note CM Note Notes: Referrals sent to [facility]. To have a Family Meeting with parents today. Date Signed: 04/22/2018 11:24 AM Electronically Signed By:Vivienne Currie LCSW
[2018-04-22] MEDS ORDERED: fentaNYL 100 MCG/2 ML INJ ONE (12:52)
[2018-04-22] MEDS ORDERED: MIDAZOLAM 2 MG/2 ML VIAL ONE (12:52)
--- NOTE | 2018-04-22 14:29 | GIREPORT ---
[facility] Surgical Services - Endoscopy Department Patient Name: Lakesha Chang Procedure Date: 04/22/2018 1:14 PM Patient Type: Inpatient Attending MD/ ER Physician: Pascual Meza MD Procedure: Upper GI endoscopy Indications: Feeding difficulties. Plt 168K. Providers: Pascual Meza MD, FACG Referring MD: [facility] Critical Care; Javier Gunderson DO Medicines: Fentanyl 100 micrograms IV, Midazolam 3 mg IV Complications: No immediate complications. Description of Procedure: After obtaining informed consent, the endoscope was passed under direct vision. Throughout the procedure, the patient's blood pressure, pulse, and oxygen saturations were monitored continuously. The Endosonoscope was introduced through the mouth, and advanced to the second part of duoden um. Findings: Prior to placement of her bite block, a loose tooth was noted in her up per mouth, on the right side. This area was avoided, with placement of bite block. At procedure's end, tooth was still present. Critical care MD informed. The esophagus was normal. The stomach was normal. The examined duodenum was normal. A 20 Fr G tube was placed, after sterilizing the skin and using a finde r needle, using the pull technique. Outside bumper at 2.5 cm. Estimated Blood Loss: none. Post Op Diagnosis: - G tube placement, as above. Recommendation: - ok to use G tube for feedings (orders as per Critical Care), meds, wa ter, etc. - this time tomorrow, ok to remove dressing over G tube, keep site to o pen air - ok to use a slotted 4 x 4 gauze over the G tube bumper prn oozing (no t under the bumper, as we do not want to loosen it) - ok to clean the G tube site with 1:1 water:hydrogen peroxide prn michael ting, but do not loosen the bumper I will sign off; Please call if we can be of further help [phone]). Thank you for allowing me to help in the management of this patient. Attending Participation: I personally performed the entire procedure. Susana Garner MD Pascual Meza MD 04/22/2018 2:29:26 PM This report has been signed electronicallyPeter MD Susana Number of Addenda: 0 Note Initiated On: 04/22/2018 1:14 PM [email or web address]
--- NOTE | 2018-04-22 14:56 | PDINTPN ---
Telesales Specialist Progress Note Assessment/Plan: ASSESSMENT 23 yo F w severe mitral regurgitation s/p MVR whose course has been complicated by severe anoxic brain injury in the setting of low intraoperative perfusion pressure. # anoxic/ischemic brain injury # encephalopathy # MR s/p MVR # respiratory failure # paroxysmal sympathetic hyperactivity- intermittent tachycardia, posturing, hyperthermia. # anxiety PLAN # status post PEG 04/22/2018 initiate tube feeds # D5W 1/2 NS w 20 KCl until tube feeds are at goal # initiate enteral propranolol 20 mg p.o. Q.8 hours and increase as needed # p.r.n. Metoprolol for sustain heart rate greater than 125 # low-dose p.r.n. Oxycodone solution # avoid IV morphine now that patient has enteral access # Floxin started 20 mg p.o. Daily 04/22/2008 # right upper incisor tooth mildly loose but unable to be removed with gentle traction. This point will not pursue further intervention # appreciate neurology and CTS management # Analgesia Oxy # Sedation none # Thromboprophylaxis - SCDs, holding sq hep in setting of ischemic related hemorrhage and pending PEG placement # Head of bed elevated # Ulcer prophylaxis - PPI # Glucose SSI # Skin no skin breakdown # Delirium - delirium precautions # very guarded prognosis. Dispo pending clinical course. Appreciate case management, social work and severe trial care involved ABX none IMAGING 04/19/18 MRI brain - findings consistent with ischemic/anoxic brain injury involving bilateral caudate nuclei extending to the periventricular white matter and putamen. Subtle anoxic injury at parietal occipital junction as well as possible superior frontal lobes. focal punctate hemorrhage and right anterior lateral cerebellar lobe as well as the occipital lobes. 04/22/18 14:52 Subjective: Patient intermittent tachycardia increased posturing diaphoresis and hyperthermia consistent with paroxysmal sympathetic hyperactivity. Improvement with IV metoprolol morphine. However some concerns for over-sedation with morphine. Patient bit right lower coronary of lip during 1 these activities as some swelling this a.m.. Peg tube placed today with some observed minute of right upper tooth pain loose. Objective: Vital Signs Temp Pulse Resp BP Pulse Ox 38.1 C 118 H 24 H 138/84 H 94 04/22/18 14:42 04/22/18 14:42 04/22/18 14:42 04/22/18 14:42 04/22/18 14:42 Laboratory Results 04/22/18 05:00 04/22/18 05:00 04/21/18 04/22/18 04/23/18 05:59 05:59 05:59 Intake Total 1479 1489 Output Total 2228 6050 Balance -746 -411 PT 14.3 SEC (12.0-15.0) 04/20/18 04:15 INR 1.09 (0.83-1.16) 04/20/18 04:15 Physical Exam - Physical Exam General Appearance: obtunded EENT: other (Right lower coronary of lip swollen. Bite vipin. Oropharynx general clear. Right upper incisor loose but unable to be pulled with gentle traction), No scleral icterus (L) Respiratory: lungs clear, normal breath sounds Cardiac/Chest: tachycardia, No edema, No gallop Abdomen: normal bowel sounds, non-tender Back: Normal inspection Skin: normal color, warm/dry Neuro/Psych: other (Obtunded, nonresponsive to pain. Right-sided triple flexion intermittently. Some decerebrate posturing) ICD10 Worksheet Patient Problems: Problems Problem Status Onset Acute blood loss anemia Acute Mitral valve regurgitation Acute S/P mitral valve repair Acute ~04/16/18 Depression Chronic
[2018-04-22] MEDS: PROPRANOLOL HCL 20 MG TAB PO SCH ×2 (15:05→22:26)
--- NOTE | 2018-04-22 16:11 | ASMTCMCOM ---
DENEEN Note CM Note Notes: "Family Meeting" today with parents. Griffin, father was asked to attend the meeting by and sat outside the table area. Rocio, mother, sat at the table. They reported that the MD's had explained everthing to them and they understood her condition and poor prognosis. DENEEN gave the mother a phone# to contact at [facility], [facility] or No [phone] for assistance at school, counseling for patient's sister. Specific services were not available, Griffin was not interested in vague emergency room physician assistant info, and left the meeting. Rocio remained, she stated that this was very difficult for her . He was especially close to Lakesha and very proud of her acheivements. 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 Rocio wanted to know what would be next? CM informed mother that patient could possibly go to an LTAC and if she had neuro improvements possibly rehab? CM to write down the LTAC's interested in patient's admission. Date Signed: 04/22/2018 04:10 PM Electronically Signed By:Vivienne Currie LCSW
--- NOTE | 2018-04-22 17:37 | NEUROPROG ---
Assessment: Visit spent mostly in counseling and coordination of care. 75 mins spent in direct patient care activities on the floor. No clinical changes. Having fevers and tachycardia concerning for autonomic instability. Infectious work up negative thus far. Got PEG today. Exam reveals the patient the be unresponsive and nonverbal. The eyes are open with roving eye movements. Pupils 4mm round and reactive. No blink to threat. Oculocephalics intact. Corneals intact. Face appears symmetric. Did not gag so not to possibly cause vomiting. She has no purposeful movements in the extremities. Flexion posturing in BUEs with tactile/nox stim. Mild triple flexion in BLEs to tactile/nox stim. DTRs brisk. Plantars extensor. Sustained clonus about both ankles. Family discussion today with case management, Dr. Angel and Dr. Gunderson. This meeting lasted 50 mins. Again reviewed clinical situation, as well as possibility of acute decompensation requiring further intervention. Family wants to continue with full medical measures. CM working on finding LTAC. I reviewed the meaning of vegetative state, and the possibility for improvement, though she would not going to be the same person as before her injury if she has improvement. It is an overall poor prognosis, but time will tell regarding her functional neurologic improvement. She has experienced anoxic brain injury from relative hypoperfusion. This is concordant with the MRI findings which suggest diffuse anoxic injury. Overall, her brainstem reflexes are preserved, but I do not see any meaningful cerebral function. She is in a vegetative state. Overall her prognosis for functional neurologic recovery remains poor, but possible. Time will tell regarding any neurologic improvement. At this point would continue to support her perfusion and other organ systems. Will get EEG tomorrow to ensure there is no nonconvulsive seizure activity, as well as evaluate overall cerebral activity. Transition to LTAC once she is stable for discharge, and she will need ongoing evaluation in that setting for any meaningful improvement. Objective: Vital Signs Temp Pulse Resp BP Pulse Ox 38.0 C 99 25 H 138/72 H 94 04/22/18 16:45 04/22/18 16:00 04/22/18 16:00 04/22/18 16:00 04/22/18 16:00 Laboratory Results 04/22/18 05:00 04/21/18 04/22/18 04/23/18 05:59 05:59 05:59 Intake Total 1479 1489 873 Output Total 5449 6250 500 Balance -746 -411 373 PT 14.3 SEC (12.0-15.0) 04/20/18 04:15 INR 1.09 (0.83-1.16) 04/20/18 04:15 Allergies/Adverse Reactions: No Known Allergies Allergy (Verified 04/09/18 15:57)
[2018-04-22] MEDS: FLUoxetine 20 MG CAP TUBE SCH (20:20)
[2018-04-23] MEDS: ACETAMINOPHEN 650 MG/20.3 ML UDCUP TUBE PRN (00:56)
[2018-04-23] MEDS: PETROLAT,WHT/MIN OIL/SOD CHL 3.5 GM OPHT.OINT EACHEYE SCH ×5 (01:16→23:24)
[2018-04-23] MEDS ORDERED: LIDOCAINE 1% 300 MG/30 ML SDV ONE ×2 (02:33→11:46)
[2018-04-23] MEDS ORDERED: MIDAZOLAM 2 MG/2 ML VIAL IVP ONE (03:15)
[2018-04-23] MEDS ORDERED: LORazepam 2 MG/ML INJ ONE (03:18)
[2018-04-23] MEDS ORDERED: PROPOFOL/EMULSION 1,000 MG/100 ML BOTTLE IV ONE (03:47)
--- NOTE | 2018-04-23 04:23 | GPN ---
DATE OF PROCEDURE: 04/23/2018 PROCEDURE: Flexible fiberoptic bronchoscopy. REASON FOR THE PROCEDURE: Respiratory distress with abnormal chest x-ray, possible retained secretio ns, hypoxia. DESCRIPTION OF PROCEDURE: After an appropriate time-out, a lubricated Q-tip was inserted in both lillie es and the left naris was felt to be more patent. It was my assessment that there was no risk of air borne infection from this procedure. I then advanced the bronchoscope through the left naris, which advanced easily. The vocal cords were easily identified. There were thin bloody secretions around t he posterior pharynx which were easily suctioned. 1% lidocaine was used topically on the airways for anesthesia. The bronchoscope was advanced through the vocal cords into the main trachea, which had a moderate amount of thin bloody secretions. These were easily suctioned. A 7.5 endotracheal tube w as then advanced over the bronchoscope. The patient's oxygen saturations were maintained in the 90% to 100% range throughout. The bronchoscope was then reintroduced into the airway. The left-sided ai rways had scant secretions. On the right, there was a moderate amount of bloody thin secretions whic h were easily suctioned, primarily coming from the basal segments of the right lower lobe. These wer e suctioned until clear. The appropriate position of the endotracheal tube 2 cm above the jacqueline was confirmed at the end of the procedure, and the bronchoscope was removed. No secretions were taken. The patient received 6 mg of Ativan and 4 mg of morphine for the procedure. There were no complicat ions apparent at the end of the procedure with the exception of a small amount of nasal bleeding. /[id number]/MODL
--- NOTE | 2018-04-23 04:28 | PDINTPN ---
Global Climate Change Researcher Progress Note Assessment/Plan: Assessment: I was called to see the patient emergently due to intermittent episodes of hypoxemia (as low as the 50%) with associated tachypnea with rhonchorous respirations and tachycardia with heart rate in the 130s. These episodes were precipitated by rigidity and jaw clamping. The hypoxemia improved with jaw thrust but was requiring continuous jaw thrust by staff in order to maintain a patent airway. At the time of my initial evaluation the patient had a right gaze deviation with fine nystagmus and dilated pupils as well as some subtle upper jaw twitching. She had an oral airway an and staff was continuously performing a jaw thrust. In addition she was quite rigid, and I was unable to flex her extremities. There was no clonic movement. Oxygen saturations were in the 90s on high-flow face mask oxygen, and she was tachycardia. This resolved spontaneously, and her pupils were no longer dilated and she had waxy tone but I was able to flex/extend all extremities. The episode of rigidity, tachypnea, tachycardia then returned, although although there was no eye deviation or lip twitching. I gave the patient 4 mg of Ativan for possible seizure, and the findings improved. I was concerned that any further episodes of hypoxemia could worsen her brain injury, and also felt that she likely had significant secretions given the chest x-ray change and her rhonchorous respirations, so I chose to intubate the patient in order to ensure a patent airway and also to clear secretions. I chose a nasal route due to these episodes of jaw clamping, which I felt could potentially occlude the endotracheal tube even with the presence of a bite protector, as well as her history of a loose incisor tooth. She was given an additional 2 mg of Ativan and 4 mg of morphine, and was intubated nasally without difficulty. Plan: Check arterial or venous blood gas in an hour and chest x-ray tomorrow morning. I will start the patient on Keppra for possible seizures. An EEG is planned for tomorrow. Patient will be sedated primarily with propofol for its anti-seizure properties. Morphine can be used p.r.n., and Ativan to be used if there are further episodes consistent with seizure. Dr. Gunderson and the patient's sister Saida were updated by phone. 65 min CC time assessing/managing the patient's acute respiratory failure/ distress and possible seizure activity, exclusive of time performing the procedure. 04/23/18 04:37 Objective: Vital Signs Temp Pulse Resp BP Pulse Ox 39 C H 146 H 36 H 128/70 H 95 04/23/18 02:00 04/23/18 02:15 04/23/18 02:15 04/23/18 02:00 04/23/18 02:15 Laboratory Results 04/22/18 05:00 04/22/18 17:20 04/21/18 04/22/18 04/23/18 05:59 05:59 05:59 Intake Total 1479 1489 873 Output Total 2225 1900 500 Balance -746 -411 373 PT 14.3 SEC (12.0-15.0) 04/20/18 04:15 INR 1.09 (0.83-1.16) 04/20/18 04:15 CXR 04/21/18: Right base atelectasis. Images reviewed by me. ICD10 Worksheet Patient Problems: Problems Problem Status Onset Acute blood loss anemia Acute Mitral valve regurgitation Acute S/P mitral valve repair Acute ~04/16/18 Depression Chronic
[2018-04-23] MEDS ORDERED: LORazepam 2 MG/ML INJ IVP ONE (04:45)
[2018-04-23] MEDS: levETIRAcetam 1000MG/NACL 100 ML IV SCH ×2 (04:53→21:13)
[2018-04-23] MEDS: PROPOFOL/EMULSION 100 ML IV SCH ×2 (05:03→16:11)
[2018-04-23] MEDS: DOCOSANOL 2 GM CREAM TP SCH ×5 (06:48→22:00)
--- NOTE | 2018-04-23 06:49 | SOAPPROG ---
SOAP Progress Note Assessment/Plan: Assessment: POD#7 MICS complex MV repair w #26 Physio ring, access mini right thoracotomy, femoral CPB with primary repair of femoral arteries and vein after decannulation POD#1 20 Fr G tube IV access LUE PICC Severe MR - Amenable to mini invasive approach. Rt fem CPB complicated by unexplained 15 min low flow state refractory to pressors. Cannula ultimately transferred to left side with improved hemodynamics. Slow to arouse and heightened concern for anoxic brain injury. Neuro following. Prognosis remains guarded. Chest tube out. Antithrombotic prophylaxis with ASA alone. Acute expected blood loss anemia with thrombocytopenia and mild coagulopathy - Stable s/p 5u PRBC. No evidence active bleeding. Postoperative respiratory failure - Inability to clear secretions and reintubated this am for tachypnea, hypoxemia, and seizure-like activity. Sedation per pulm. Trach planned. Plan: Cont supportive care as per multidisciplinary team. 04/23/18 06:49 Subjective: Sedated on vent Objective: Vital Signs Temp Pulse Resp BP Pulse Ox 37 C 94 22 H 104/56 L 100 04/23/18 05:00 04/23/18 05:00 04/23/18 05:00 04/23/18 05:00 04/23/18 05:00 Laboratory Results 04/22/18 05:00 04/23/18 05:20 04/22/18 04/23/18 04/24/18 05:59 05:59 05:59 Intake Total 1489 873 Output Total 1900 500 Balance -411 373 PT 14.3 SEC (12.0-15.0) 04/20/18 04:15 INR 1.09 (0.83-1.16) 04/20/18 04:15 Physical Exam - Physical Exam General Appearance: no apparent distress Respiratory: other (vent) Cardiac/Chest: regular rate, rhythm Skin: warm/dry ICD10 Worksheet Patient Problems: Problems Problem Status Onset Acute blood loss anemia Acute Mitral valve regurgitation Acute S/P mitral valve repair Acute ~04/16/18 Depression Chronic
[2018-04-23] MEDS: SENNOSIDES 17.6 MG/10 ML UDL TUBE SCH ×2 (07:56→21:13)
[2018-04-23] MEDS: ASPIRIN 81 MG CHEWABLE TAB TUBE SCH (07:56)
[2018-04-23] MEDS: PROPRANOLOL HCL 20 MG TAB PO SCH ×3 (07:56→23:00)
[2018-04-23] MEDS: LORazepam 2 MG/ML INJ IVP PRN (08:12)
[2018-04-23] MEDS: FAMOTIDINE 20 MG/NACL 50 ML IV SCH ×2 (08:12→21:14)
--- NOTE | 2018-04-23 08:41 | PDINTPN ---
Photograph Editor Progress Note Assessment/Plan: ASSESSMENT 23 yo F w severe mitral regurgitation s/p MVR whose course has been complicated by severe anoxic brain injury in the setting of low intraoperative perfusion pressure. # anoxic/ischemic brain injury # encephalopathy # MR s/p MVR # respiratory failure # paroxysmal sympathetic hyperactivity- intermittent tachycardia, posturing, hyperthermia. # anxiety PLAN # status post PEG 04/22/2018 initiate tube feeds # D5W 1/2 NS w 20 KCl until tube feeds are at goal # initiate enteral propranolol 20 mg p.o. Q.8 hours and increase as needed # p.r.n. Metoprolol for sustain heart rate greater than 125 # low-dose p.r.n. Oxycodone solution # avoid IV morphine now that patient has enteral access # Floxin started 20 mg p.o. Daily 04/22/2008 # right upper incisor tooth mildly loose but unable to be removed with gentle traction. This point will not pursue further intervention # appreciate neurology and CTS management # Analgesia Oxy # Sedation none # Thromboprophylaxis - SCDs, holding sq hep in setting of ischemic related hemorrhage and pending PEG placement # Head of bed elevated # Ulcer prophylaxis - PPI # Glucose SSI # Skin no skin breakdown # Delirium - delirium precautions # very guarded prognosis. Dispo pending clinical course. Appreciate case management, social work and severe trial care involved ABX none IMAGING 04/19/18 MRI brain - findings consistent with ischemic/anoxic brain injury involving bilateral caudate nuclei extending to the periventricular white matter and putamen. Subtle anoxic injury at parietal occipital junction as well as possible superior frontal lobes. focal punctate hemorrhage and right anterior lateral cerebellar lobe as well as the occipital lobes. 04/22/18 CXR w/o focal infiltrate. ETT in place Subjective: Patient with seizure like activity and associated severe hypoxemia and inability to protect airway. Patient was emergently intubated this AM by Dr House. She is loaded with Keppra and sedated with propofol. Objective: Vital Signs Temp Pulse Resp BP Pulse Ox 37.1 C 106 H 16 112/67 99 04/23/18 07:00 04/23/18 07:00 04/23/18 07:00 04/23/18 07:00 04/23/18 07:00 Laboratory Results 04/22/18 05:00 04/23/18 05:20 04/22/18 04/23/18 04/24/18 05:59 05:59 05:59 Intake Total 1489 2378.6 Output Total 1900 850 Balance -411 1528.6 PT 14.3 SEC (12.0-15.0) 04/20/18 04:15 INR 1.09 (0.83-1.16) 04/20/18 04:15 ICD10 Worksheet Patient Problems: Problems Problem Status Onset Acute blood loss anemia Acute Mitral valve regurgitation Acute S/P mitral valve repair Acute ~04/16/18 Depression Chronic
[2018-04-23] MEDS ORDERED: PANTOPRAZOLE SODIUM 40 MG TAB PO SCH (09:00)
[2018-04-23] MEDS: LANSOPRAZOLE SUSP 30MG/10ML UDSYR (Adult) TUBE SCH (09:01)
[2018-04-23] MEDS: CHLORHEXIDINE GLUCONATE 15 ML UDL PO SCH ×2 (09:01→20:00)
[2018-04-23] MEDS: KETOROLAC 15 MG/1 ML SDV IVP PRN (09:05)
[2018-04-23] MEDS: POTASSIUM Cl (KCl) 50 ML IV SCH ×3 (09:10→10:56)
--- NOTE | 2018-04-23 10:16 | NEUROPROG ---
Assessment: Patient was nasally intubated early am due to concern for desaturation with suctioning, as well as jaw clenching/posturing. ICU team noted gaze version and possible jaw twitching during clenching episodes with stimulation. She has bronchoscopy and was intubated during the procedure. No sedated on propofol and started on levetiracetam. No family at bedside today. Exam reveals the patient to be intubated (nasally) and sedated with propofol. The eyes are closed. Primary gaze is centered. Pupils 2mm round reactive. Corneals intact. Face symmetric. Cough to deep suction. No spontaneous movements. Mild extensor posturing with tactile stim of BUEs. Triple flexion in BLEs to tactile stim. Plantars extensor. Sustained clonus about the ankles. Events overnight could represent seizure, particularly given a substrate for such. However, I do think her episodes could have been reflexive to the stimulation given her cortical disinhibition, and similar presentation on my initial evaluation. She has experienced anoxic brain injury from relative hypoperfusion. This is concordant with the MRI findings which suggest diffuse anoxic injury. Overall, her brainstem reflexes are preserved, but I still do not see any meaningful cerebral function. She is in a vegetative state. Overall her prognosis for functional neurologic recovery remains poor, but possible. Time will tell regarding any neurologic improvement. At this point would continue to support her perfusion and other organ systems. EEG today to ensure there is no nonconvulsive seizure activity, as well as evaluate overall cerebral activity. Case discussed with Dr. Angel - plan for trach today or tomorrow. Transition to LTAC once she is stable for discharge, and she will need ongoing evaluation in that setting for any meaningful improvement. 35 mins in direct patient care activities on the floor. Objective: Vital Signs Temp Pulse Resp BP Pulse Ox 38.5 C H 97 34 H 124/64 H 100 04/23/18 09:00 04/23/18 09:00 04/23/18 09:00 04/23/18 09:00 04/23/18 09:00 Laboratory Results 04/22/18 05:00 04/23/18 05:20 04/22/18 04/23/18 04/24/18 05:59 05:59 05:59 Intake Total 1489 2378.6 Output Total 1900 850 Balance -411 1528.6 PT 14.3 SEC (12.0-15.0) 04/20/18 04:15 INR 1.09 (0.83-1.16) 04/20/18 04:15 Allergies/Adverse Reactions: No Known Allergies Allergy (Verified 04/09/18 15:57)
[2018-04-23] MEDS ORDERED: POTASSIUM CL 20 MEQ TAB PO ONE (10:51)
[2018-04-23] MEDS ORDERED: POTASSIUM CL 20 MEQ/15 ML UDCUP TUBE ONE ×2 (11:00→21:00)
[2018-04-23] MEDS ORDERED: fentaNYL 100 MCG/2 ML INJ IVP ONE (11:14)
[2018-04-23] MEDS ORDERED: ROCURONIUM 100 MG/10 ML VIAL IVP ONE (11:15)
[2018-04-23] MEDS ORDERED: PHENYLEPHRINE HCL 50 MG in D5W 250 ML IV SCH (11:30)
--- NOTE | 2018-04-23 12:41 | GPN ---
PROCEDURE: Fiberoptic bronchoscopy. INDICATION: Anoxic brain injury, mitral regurgitation. DESCRIPTION OF PROCEDURE: Procedure was performed in the intensive care unit under continuous pulse ox, EKG, and blood pressure monitoring. PROCEDURE IN DETAIL: Bronchoscope was entered through a #7.0 nasal endotracheal tube. Distal trache a and jacqueline were visualized, showed no endobronchial lesion, normal-appearing mucosa. Bronchoscope inserted in the right lung. Right upper lobe, right middle lobe, right lower lobe including subsegme nts were subsequently visualized, showed no endobronchial lesion and normal-appearing mucosa. Bronch oscope inserted in the left lung. Left upper lobe, lingula, left lower lobe including subsegments we re visualized and showed no endobronchial lesions and normal-appearing mucosa. Visualization was the n provided for percutaneous tracheostomy. This was performed without incident. Bronchoscope was the n removed and then placed through the tracheostomy tube to confirm tracheal position. Bronchoscope w as then removed. The patient tolerated the procedure well with no apparent complications. Portable chest x-ray has been called for. /[id number]/MODL
[2018-04-23] MEDS: LR 1,000 ML IV SCH ×2 (12:47→23:25)
--- NOTE | 2018-04-23 13:51 | CPEEG ---
DATE OF STUDY: 04/23/2018 INTRODUCTION: This is a multichannel EEG using the standard 10-20 international system of disc elect rode placement. A single EKG channel is monitored for the duration of the study. This study is unde rtaken for the evaluation of possible seizures. The recording time is 20 minutes. DESCRIPTION OF RECORDING: The tracing shows the background to be suppressed with some sweat artifact noted throughout the tracing. With noxious stimulation, the tracing was not reactive. No activatin g measures were undertaken. The EKG showed sinus tachycardia. IMPRESSION: This is an abnormal EEG due to suppression of the background. CLINICAL CORRELATION: This EEG could represent the effects of sedative medication infusions or anoxi c brain injury. Clinical correlation advised. No electrographic seizures were recorded. No focal/l ateralizing epileptiform discharges. /[id number]/MODL
--- NOTE | 2018-04-23 13:55 | SUROPNOTE ---
[facility] Operative Report - Surgery PERCUTANEOUS DILATIONAL TRACHEOTOMY WITH BRONCHOSCOPIC GUIDANCE AND DEEP SEDATION DATE OF PROCEDURE 04/23/18 PERFORMED BY: Abbie Angel MD BRONCHOSCOPY TORTILLA MAKER: MARY JANE CENTENO D.O. NURSE: ADONAY Interiano. RESPIRATORY THERAPIST: Abram, RT. INDICATION Recurrent respiratory failure and need for mechanical ventilation, anoxic brain injury CONSENT Given patients intubation and sedation, the patient was unable to provide consent. Discussed the procedure with the patients decision maker, including the indications, risks, benefits, and alternatives. All questions were answered. Written consent was obtained and placed in the chart. PREPROCEDURE [place] protocol was followed for this procedure. Prior to the initiation of sedation or the procedure, a timeout was performed. The patients identity was verified by confirming the patients wrist band for name, date of , and medical record number. Everyone in the room was in agreement with the patient identify, the procedure to be performed, consent was in place and matched the planned procedure, and the procedure site. The area was cleaned with a CHG scrub and draped with large sterile barrier. Hand hygiene was performed, and cap , mask, sterile gown, and sterile gloves were worn. The patient was covered by a large sterile drape. Sterile technique was maintained for the entire procedure. ANESTHESIA The patient was intubated and sedated prior to the procedure. Patient was placed on propofol, given a bolus of 100 mcg of fentanyl and paralyzed with 50 mg of rocuronium for the procedure. Vitals were continuously monitored by both physicians as well as nurse and RT PROCEDURE: The patient was placed in the supine position with towel rolls under the shoulders for better neck exposure. The anterior neck was prepped and draped in usual sterile fashion. The bronchoscope was advanced through the nasotracheal tube and then withdrawn to the level of the cricoid cartilage. Next under bronchoscopic visualization a 22 gauge needle was passed into the trachea between the 1st and 2nd tracheal rings. It was then withdrawn and 5 cm of 1% lidocaine with epinephrine were administered for analgesia and bleeding control. A 16 gauge catheter over needle was advanced into the trachea and proper positioning was confirmed with direct visualization. The needle was then removed leaving a white outer cannula in position. The wire from the tracheostomy tray was then advanced through the white outer cannula. The cannula was then removed. A 1.5-cm horizontal incision was then performed at the site of the guidewire. Next, a curved Alis was used to bluntly dissect down to the level of the pretracheal fascia. Next, the small, blue dilator was then advanced over the wire into the trachea. Once proper dilatation was achieved, the dilator was removed. The large, tapered dilator (blue rhino) was then advanced over the wire into the trachea. The dilator was removed leaving the wire and white inner cannula in position. A number 8 percutaneous Shiley tracheostomy tube was then advanced over the wire and white inner cannula into the trachea. Proper positioning was confirmed with bronchoscopic visualization. The tracheostomy tube was then sutured in place with two nylon sutures. It was further secured with a tracheostomy tie. Estimated blood loss: Less than 5 mL. Complications: None immediate. FOLLOW-UP CARE: Sutures to remain in for 7 days then removed. The patient continues to be well the trach may be downsized to a 6 0 Shiley or 7 0 Portex after 2-3 weeks.
--- NOTE | 2018-04-23 14:03 | PDINTPN ---
Cat Driver Progress Note Assessment/Plan: ASSESSMENT 23 yo F w severe mitral regurgitation s/p MVR via mini thoracotomy 04/16/18 whose course has been complicated by severe anoxic brain injury in the setting of low intraoperative perfusion pressure and recurrent respiratory failure # recurrent acute hypoxemic respiratory failure - inability to protect airway. Status post percutaneous tracheostomy with 8 0 Shiley 04/23/2018 # anoxic/ischemic brain injury # encephalopathy # MR s/p MVR 04/16/2018 via mini thoracotomy # paroxysmal sympathetic hyperactivity- intermittent tachycardia, posturing, hyperthermia. # anxiety # protein calorie malnutrition and inability to take medications by mouth- status post PEG 04/22/2018 PLAN # lung protective ventilation wean as tolerated # status post perc trach today # increase enteral feeds to goal # will switch to LR at 100 cc/hour until tube feeds are going urine output is improved and stop maintenance fluid # enteral propranolol 20 mg p.o. Q.8 hours and increase as needed # p.r.n. Metoprolol for sustain heart rate greater than 125 despite propranolol and low-dose oral oxycodone # low-dose p.r.n. Oxycodone solution # fluoxetine # continue Keppra until after EEG # right upper incisor tooth mildly loose but unable to be removed with gentle traction. This point will not pursue further intervention # appreciate neurology and CTS management # Analgesia- oxy # Sedation propofol today, off tomorrow # Thromboprophylaxis - Lovenox 40 # Head of bed elevated # Ulcer prophylaxis - PPI # Glucose SSI # Skin no skin breakdown # Delirium - delirium precautions # very guarded prognosis. Will need LTAC placement Patient is critically ill with severe anoxic brain injury and recurrent hypoxemic respiratory failure IMAGING I personally reviewed and interpreted patient's images 04/19/18 MRI brain - findings consistent with ischemic/anoxic brain injury involving bilateral caudate nuclei extending to the periventricular white matter and putamen. Subtle anoxic injury at parietal occipital junction as well as possible superior frontal lobes. focal punctate hemorrhage and right anterior lateral cerebellar lobe as well as the occipital lobes. 04/23/18 CXR w ETT in place, no focal infiltrate Subjective: Patient with seizure-like activity overnight versus progression of sympathetic hyperreactivity and associated hypoxemia and posturing. She was emergently nasotracheally intubated for hypoxemic respiratory failure and airway protection. Family was updated at bedside and risk benefit discussion of early percutaneous tracheostomy was performed. Family agrees with proceeding with percutaneous tracheostomy Objective: Vital Signs Temp Pulse Resp BP Pulse Ox 37.7 C 97 18 109/55 L 95 04/23/18 13:42 04/23/18 13:42 04/23/18 13:42 04/23/18 13:42 04/23/18 13:42 Laboratory Results 04/22/18 05:00 04/23/18 05:20 04/22/18 04/23/18 04/24/18 05:59 05:59 05:59 Intake Total 1489 2378.6 Output Total 1900 850 Balance -411 1528.6 PT 14.3 SEC (12.0-15.0) 04/20/18 04:15 INR 1.09 (0.83-1.16) 04/20/18 04:15 Physical Exam - Physical Exam General Appearance: obtunded EENT: ET tube, No scleral icterus (R), No scleral icterus (L) Neck: non-tender, full range of motion Respiratory: chest non-tender, lungs clear, normal breath sounds Cardiac/Chest: normal peripheral pulses, regular rate, rhythm Abdomen: normal bowel sounds, non-tender Rectal: deferred Back: Normal inspection Skin: normal color, warm/dry, No cyanosis Extremities: normal inspection, No pedal edema, No swelling Neuro/Psych: other (intubated sedated, dilated pupils) ICD10 Worksheet Patient Problems: Problems Problem Status Onset Acute blood loss anemia Acute Mitral valve regurgitation Acute S/P mitral valve repair Acute ~04/16/18 Depression Chronic
[2018-04-23] MEDS ORDERED: NS 500 ML IV ONE (14:30)
--- NOTE | 2018-04-23 14:52 | ASMTCMCOM ---
CM Note CM Note Notes: Family asked for letters to be written to [facility] and [facility]-this was completed. They were given a list of LTAC's and given info of which facilities had neuro involvement- [facility] [place]. Mother as interested in [facility]. They had contacted earlier to say that they did not have Neuro involvement so they might not be the best pick for her. Patient had to be intubated last night and today was trached. I gave [facility] this new info and updated referrals to all of the above. Intensivists don't think Neuro involvement is importatnt at this time. Date Signed: 04/23/2018 02:52 PM Electronically Signed By:Vivienne Currie LCSW
[2018-04-23] MEDS: FLUoxetine 20 MG CAP TUBE SCH (21:14)
[2018-04-24] MEDS: PROPOFOL/EMULSION 100 ML IV SCH (03:04)
[2018-04-24] MEDS: PETROLAT,WHT/MIN OIL/SOD CHL 3.5 GM OPHT.OINT EACHEYE SCH ×4 (05:34→23:18)
[2018-04-24] MEDS: DOCOSANOL 2 GM CREAM TP SCH ×5 (05:34→22:19)
[2018-04-24] MEDS ORDERED: POTASSIUM CL 20 MEQ/15 ML UDCUP TUBE ONE (07:00)
--- NOTE | 2018-04-24 07:32 | SOAPPROG ---
SOAP Progress Note Assessment/Plan: Assessment: POD#8 MICS complex MV repair w #26 Physio ring, access mini right thoracotomy, femoral CPB with primary repair of femoral arteries and vein after decannulation POD#2 20 Fr G tube. TFs at goal. IV access LUE PICC Severe MR - Amenable to mini invasive approach. Rt fem CPB complicated by unexplained 15 min low flow state refractory to pressors. Cannula ultimately transferred to left side with improved hemodynamics. Slow to arouse and heightened concern for anoxic brain injury. Neuro following. Prognosis remains guarded. Chest tube out. Antithrombotic prophylaxis with ASA alone. Acute expected blood loss anemia with thrombocytopenia and mild coagulopathy - Stable s/p 5u PRBC. No evidence active bleeding. Postoperative respiratory failure - Inability to clear secretions and reintubated yest am for tachypnea, hypoxemia, and seizure-like activity. Sedation per pulm. Perc trach placed yest pm. Plan: Cont supportive care as per multidisciplinary team. 04/24/18 07:31 Subjective: Sedated on vent. Moves when touched. No purposeful activity. Objective: Vital Signs Temp Pulse Resp BP Pulse Ox 37.2 C 103 H 22 H 119/63 100 04/24/18 06:00 04/24/18 07:27 04/24/18 07:27 04/24/18 06:00 04/24/18 07:27 Laboratory Results 04/22/18 05:00 04/24/18 04:30 04/23/18 04/24/18 04/25/18 05:59 05:59 05:59 Intake Total 2378.6 2620.5 Output Total 850 350 Balance 1528.6 2270.5 PT 14.3 SEC (12.0-15.0) 04/20/18 04:15 INR 1.09 (0.83-1.16) 04/20/18 04:15 Physical Exam - Physical Exam General Appearance: no apparent distress Respiratory: lungs clear (vent) Cardiac/Chest: regular rate, rhythm, tachycardia, other (left thoracot and CT site CDI) Abdomen: normal bowel sounds, soft Skin: warm/dry Extremities: swelling (1+ gen) ICD10 Worksheet Patient Problems: Problems Problem Status Onset Acute blood loss anemia Acute Mitral valve regurgitation Acute S/P mitral valve repair Acute ~04/16/18 Depression Chronic
[2018-04-24] MEDS: PROPRANOLOL HCL 20 MG TAB PO SCH ×3 (08:00→22:23)
[2018-04-24] MEDS: CHLORHEXIDINE GLUCONATE 15 ML UDL PO SCH ×2 (08:00→08:01)
[2018-04-24] MEDS: FAMOTIDINE 20 MG/NACL 50 ML IV SCH ×2 (08:01→20:21)
[2018-04-24] MEDS: LR 1,000 ML IV SCH ×2 (08:46→21:33)
[2018-04-24] MEDS: SENNOSIDES 17.6 MG/10 ML UDL TUBE SCH ×2 (09:07→21:30)
[2018-04-24] MEDS: levETIRAcetam 1000MG/NACL 100 ML IV SCH (09:09)
[2018-04-24] MEDS: LANSOPRAZOLE SUSP 30MG/10ML UDSYR (Adult) TUBE SCH (09:09)
[2018-04-24] MEDS: ASPIRIN 81 MG CHEWABLE TAB TUBE SCH (09:10)
--- NOTE | 2018-04-24 10:28 | PDINTPN ---
Telephone Supervisor Progress Note Assessment/Plan: ASSESSMENT 23 yo F w severe mitral regurgitation s/p MVR whose course has been complicated by severe anoxic brain injury in the setting of low intraoperative perfusion pressure. # anoxic/ischemic brain injury # encephalopathy # MR s/p MVR # respiratory failure # paroxysmal sympathetic hyperactivity- intermittent tachycardia, posturing, hyperthermia. # anxiety # s/p PEG 04/22/18 # s/p perc trach 8-0 shiley 04/23/18 PLAN # T piece # CBC and CMP now # stop D5W LR # propanolol 20 TID via PEG # oxy as needed for sympathetic hyperreactivity # avoid IV morphine now that patient has enteral access # Fluoxetine 20 daily # trach sutures out 04/30/17 # will downsize trach to 6-0 shiley vs 7-0 portex after 2-3 weeks # right upper incisor tooth mildly loose but unable to be removed with gentle traction. This point will not pursue further intervention # appreciate neurology and CTS management # Analgesia Oxy # Sedation none # Thromboprophylaxis - SCDs, holding sq hep in setting of ischemic related hemorrhage and pending PEG placement # Head of bed elevated # Ulcer prophylaxis - PPI # Glucose SSI # Skin no skin breakdown # Delirium - delirium precautions # Dispo - LTAC placement ABX none IMAGING 04/19/18 MRI brain - findings consistent with ischemic/anoxic brain injury involving bilateral caudate nuclei extending to the periventricular white matter and putamen. Subtle anoxic injury at parietal occipital junction as well as possible superior frontal lobes. focal punctate hemorrhage and right anterior lateral cerebellar lobe as well as the occipital lobes. 04/22/18 CXR w/o focal infiltrate. ETT in place 04/24/18 10:23 Subjective: Reintubated yesterday AM for resp failure. trached yesterday as well without issue. Unable to obtain ROS due to anoxic brain injury. Objective: Vital Signs Temp Pulse Resp BP Pulse Ox 37.3 C 94 24 H 115/62 100 04/24/18 08:00 04/24/18 10:00 04/24/18 10:00 04/24/18 10:00 04/24/18 10:00 Laboratory Results 04/22/18 05:00 04/24/18 04:30 04/23/18 04/24/18 04/25/18 05:59 05:59 05:59 Intake Total 2378.6 2620.5 Output Total 850 350 1 Balance 1528.6 2270.5 -1 PT 14.3 SEC (12.0-15.0) 04/20/18 04:15 INR 1.09 (0.83-1.16) 04/20/18 04:15 Physical Exam - Physical Exam General Appearance: obtunded EENT: PERRL/EOMI, normal ENT inspection Neck: non-tender, full range of motion, other (8- [address]) Respiratory: chest non-tender, lungs clear Cardiac/Chest: normal peripheral pulses, regular rate, rhythm Abdomen: normal bowel sounds, non-tender Back: Normal inspection Skin: normal color, warm/dry Extremities: normal range of motion, non-tender, No pedal edema Neuro/Psych: other (Obtunded, some triple flexion, no significant change in exam from day prior) ICD10 Worksheet Patient Problems: Problems Problem Status Onset Acute blood loss anemia Acute Mitral valve regurgitation Acute S/P mitral valve repair Acute ~04/16/18 Depression Chronic
--- NOTE | 2018-04-24 10:41 | NEUROPROG ---
Assessment: No events overnight. Trach placed yesterday. Weaning from ventilator this AM. Propofol off this AM. EEG done yesterday. Exam reveals the patient to trached, off sedation. The eyes are closed. On opening eyelids, slow roving eye movements noted, sometimes with dysconjugate movement. Pupils 3mm round reactive. Corneals intact. Face symmetric. No spontaneous movements. Flexor posturing with tactile stim of BUEs. Triple flexion in BLEs to tactile stim. Plantars extensor. Sustained clonus about the ankles. EEG showed suppression of the background. She has experienced anoxic brain injury from relative hypoperfusion. This is concordant with the MRI findings which suggest diffuse anoxic injury. Overall, her brainstem reflexes are preserved, but I still do not see any meaningful cerebral function. She is in a vegetative state. EEG showed suppressed background, which could be the result of the propofol yesterday, but no epileptiform activity. Overall her prognosis for functional neurologic recovery remains poor, but possible. Time will tell regarding any neurologic improvement. At this point would continue to support her perfusion and other organ systems. Case discussed with Dr. Angel - weaning from vent today, no significant active medical issues, afebrile for 24h. Transition to LTAC once she is stable for discharge, and she will need ongoing evaluation in that setting for any meaningful improvement, which can be monitored by LTAC house staff (does not necessarily need neurology specific input on daily basis at LTAC to assess for improvement). Will sign off. 25 mins in direct patient care activities on the floor. Objective: Vital Signs Temp Pulse Resp BP Pulse Ox 37.3 C 94 24 H 115/62 100 04/24/18 08:00 04/24/18 10:00 04/24/18 10:00 04/24/18 10:00 04/24/18 10:00 Laboratory Results 04/22/18 05:00 04/24/18 04:30 04/23/18 04/24/18 04/25/18 05:59 05:59 05:59 Intake Total 2378.6 2620.5 Output Total 850 350 1 Balance 1528.6 2270.5 -1 PT 14.3 SEC (12.0-15.0) 04/20/18 04:15 INR 1.09 (0.83-1.16) 04/20/18 04:15 Allergies/Adverse Reactions: No Known Allergies Allergy (Verified 04/09/18 15:57)
[2018-04-24] MEDS: ENOXAPARIN 40 MG/0.4 ML SYR SC SCH (11:23)
[2018-04-24] MEDS: oxyCODONE ORAL SOLUTION 10 MG/0.5 ML UDSYR PO PRN ×2 (11:59→18:43)
[2018-04-24] MEDS: ALTEPLASE 2 MG VIAL IVP PRN (12:30)
[2018-04-24 13:15] LABS: PLATELET COUNT 209 10^3/uL (150-400)
--- NOTE | 2018-04-24 13:26 | ASMTCMCOM ---
CM Note CM Note Notes: CM met with pt's mother and father. They said they want us to submit for insurance authorization at [facility]. DENEEN spoke with Liz from [facility] ([phone]) about family's decision and sent updates through [employer] per her request. CM to follow. Date Signed: 04/24/2018 01:25 PM Electronically Signed By:ISRAEL Cardoso
[2018-04-24] MEDS: METOCLOPRAMIDE 10 MG/2 ML VIAL IV SCH ×2 (15:04→22:23)
[2018-04-24] MEDS: POTASSIUM Cl (KCl) 50 ML IV SCH ×3 (20:20→22:25)
[2018-04-24] MEDS: FLUoxetine 20 MG CAP TUBE SCH (21:29)
[2018-04-25] MEDS: METOCLOPRAMIDE 10 MG/2 ML VIAL IV SCH ×3 (04:59→21:00)
[2018-04-25] MEDS: DOCOSANOL 2 GM CREAM TP SCH ×5 (04:59→21:00)
[2018-04-25] MEDS: PETROLAT,WHT/MIN OIL/SOD CHL 3.5 GM OPHT.OINT EACHEYE SCH ×4 (05:00→22:51)
[2018-04-25] MEDS: CHLORHEXIDINE GLUCONATE 15 ML UDL PO SCH ×2 (07:43→21:00)
[2018-04-25] MEDS: ASPIRIN 81 MG CHEWABLE TAB TUBE SCH (07:43)
[2018-04-25] MEDS: FAMOTIDINE 20 MG/NACL 50 ML IV SCH ×2 (07:43→21:00)
[2018-04-25] MEDS: ENOXAPARIN 40 MG/0.4 ML SYR SC SCH (07:43)
[2018-04-25] MEDS: PROPRANOLOL HCL 20 MG TAB PO SCH ×3 (07:43→22:47)
[2018-04-25] MEDS: oxyCODONE ORAL SOLUTION 10 MG/0.5 ML UDSYR PO PRN (07:46)
[2018-04-25] MEDS: LANSOPRAZOLE SUSP 30MG/10ML UDSYR (Adult) TUBE SCH (07:48)
[2018-04-25] MEDS: SENNOSIDES 17.6 MG/10 ML UDL TUBE SCH (07:56)
[2018-04-25] MEDS ORDERED: POTASSIUM CL 10 MEQ TAB TUBE ONE (07:59)
--- NOTE | 2018-04-25 08:09 | SOAPPROG ---
SOAP Progress Note Assessment/Plan: Assessment: POD#9 MICS complex MV repair w #26 Physio ring, access mini right thoracotomy, femoral CPB with primary repair of femoral arteries and vein after decannulation PPD#3 20 Fr G tube. TFs at goal. PPD#2 8-0 Shiley perc trach IV access LUE PICC Severe MR - Amenable to mini invasive approach. Rt fem CPB complicated by unexplained 15 min low flow state refractory to pressors. Cannula ultimately transferred to left side with improved hemodynamics. Slow to arouse and neuro eval c/w anoxic brain injury. 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 Prognosis for functional recovery poor. Family would like transition to LTAC. Cardiac status stable. Chest tube out. Antithrombotic prophylaxis with ASA alone. Acute expected blood loss anemia with thrombocytopenia and mild coagulopathy - Stable s/p 5u PRBC. H/H > 01/22 maintained. VTE prophylaxis with LMWH. Postoperative respiratory failure - Inability to clear secretions and reintubated for tachypnea, hypoxemia, and seizure-like activity. Perc trach placed. Sedation and vent management per pulm. Plan: Cont supportive care as per multidisciplinary team. 04/25/18 08:04 Subjective: Sedated on vent. Opens eyes and moves when stimulated. Objective: Vital Signs Temp Pulse Resp BP Pulse Ox 36.8 C 114 H 23 H 121/68 H 100 04/25/18 04:00 04/25/18 07:43 04/25/18 04:00 04/25/18 07:43 04/25/18 04:00 Laboratory Results 04/24/18 13:00 04/25/18 04:50 04/24/18 04/25/18 04/26/18 05:59 05:59 05:59 Intake Total 2620.5 2390.1 Output Total 350 2576 Balance 2270.5 -185.9 PT 14.3 SEC (12.0-15.0) 04/20/18 04:15 INR 1.09 (0.83-1.16) 04/20/18 04:15 Holding SR/ST with SBPs > 110 Stable sats on 40% FiO2 Excellent UOP Physical Exam - Physical Exam General Appearance: no apparent distress Respiratory: lungs clear (grossly) Cardiac/Chest: regular rate, rhythm Abdomen: soft Skin: warm/dry ICD10 Worksheet Patient Problems: Problems Problem Status Onset Acute blood loss anemia Acute Mitral valve regurgitation Acute S/P mitral valve repair Acute ~04/16/18 Depression Chronic
[2018-04-25] MEDS ORDERED: POTASSIUM CL 20 MEQ/15 ML UDCUP PO ONE (10:24)
--- NOTE | 2018-04-25 12:29 | ASMTCMCOM ---
CM Note CM Note Notes: Spoke with pt's parents today who live in [place] and have found an apt to rent across from [facility]. Referral was sent to [facility] last week and insurance authorization initiated, however, no response Friday, so earliest authorization could happen Friday. Parents to visit [facility] today. They stated they were not interested in any other facility at this time. CM to follow. D/C Plan: [facility] pending insurance Auth on Friday Date Signed: 04/25/2018 12:28 PM Electronically Signed By:Mitzy Haywood
--- NOTE | 2018-04-25 14:12 | PDINTPN ---
Public Relations Supervisor Progress Note Assessment/Plan: ASSESSMENT 23 yo F w severe mitral regurgitation s/p MVR whose course has been complicated by severe anoxic brain injury in the setting of low intraoperative perfusion pressure. # anoxic/ischemic brain injury # encephalopathy # MR s/p MVR # respiratory failure # paroxysmal sympathetic hyperactivity- intermittent tachycardia, posturing, hyperthermia. # anxiety # s/p PEG 04/22/18 # s/p perc trach 8-0 shiley 04/23/18 # hypokalemia # Anemia. Iron replete based on normal ferritin PLAN # correct hypokalemia # check mag and replete as needed # of bed to chair twice daily as tolerated # propanolol 20 TID via PEG, increase as needed # oxy as needed for sympathetic hyperreactivity # avoid IV morphine now that patient has enteral access # Fluoxetine 20 daily # trach sutures to be removed 04/30/18 # will downsize trach to 6-0 shiley vs 7-0 portex after 2-3 weeks (mid april 2018) # right upper incisor tooth mildly loose but unable to be removed with gentle traction. This point will not pursue further intervention # appreciate neurology and CTS management # Analgesia prn oxy # Sedation none # Thromboprophylaxis - SCDs, holding sq hep in setting of ischemic related hemorrhage and pending PEG placement # Head of bed elevated # Ulcer prophylaxis - PPI # Glucose SSI # Skin no skin breakdown # Delirium - delirium precautions # Dispo - LTAC placement ABX none IMAGING 04/19/18 MRI brain - findings consistent with ischemic/anoxic brain injury involving bilateral caudate nuclei extending to the periventricular white matter and putamen. Subtle anoxic injury at parietal occipital junction as well as possible superior frontal lobes. focal punctate hemorrhage and right anterior lateral cerebellar lobe as well as the occipital lobes. 04/22/18 CXR w/o focal infiltrate. ETT in place 04/24/18 10:23 04/25/18 14:16 Subjective: Maintained on T-piece. No events overnight. Family meeting for 45 minute discussion goals of care, prognosis. Up in cardiac chair this AM. Unable to obtain ROS due to mental status Objective: Vital Signs Temp Pulse Resp BP Pulse Ox 36.8 C 88 20 112/66 100 04/25/18 04:00 04/25/18 12:00 04/25/18 12:00 04/25/18 12:00 04/25/18 12:00 Laboratory Results 04/24/18 13:00 04/25/18 04:50 04/24/18 04/25/18 04/26/18 05:59 05:59 05:59 Intake Total 2620.5 2390.1 Output Total 350 2576 Balance 2270.5 -185.9 PT 14.3 SEC (12.0-15.0) 04/20/18 04:15 INR 1.09 (0.83-1.16) 04/20/18 04:15 Physical Exam - Physical Exam General Appearance: no apparent distress, obtunded EENT: PERRL/EOMI, No scleral icterus (R), No scleral icterus (L), No pale conjunctiva (R), No pale conjunctiva (L) Neck: non-tender, supple, other (Trach midline. No blood) Respiratory: lungs clear, normal breath sounds Cardiac/Chest: normal peripheral pulses, regular rate, rhythm Skin: normal color, warm/dry, No cyanosis Extremities: No pedal edema, No calf tenderness, No swelling Neuro/Psych: other (Obtunded, still with posturing) ICD10 Worksheet Patient Problems: Problems Problem Status Onset Acute blood loss anemia Acute Mitral valve regurgitation Acute S/P mitral valve repair Acute ~04/16/18 Depression Chronic
[2018-04-25] MEDS: MAGNESIUM OXIDE 400 MG TAB PO SCH (15:15)
[2018-04-25] MEDS ORDERED: POTASSIUM CL 20 MEQ/15 ML UDCUP TUBE ONE (19:00)
[2018-04-25] MEDS: FLUoxetine 20 MG CAP TUBE SCH (21:00)
[2018-04-26] MEDS: LORazepam 2 MG/ML INJ IVP PRN ×2 (03:21→21:43)
[2018-04-26] MEDS: METOCLOPRAMIDE 10 MG/2 ML VIAL IV SCH ×3 (05:29→21:27)
[2018-04-26] MEDS: PETROLAT,WHT/MIN OIL/SOD CHL 3.5 GM OPHT.OINT EACHEYE SCH ×3 (05:29→17:11)
[2018-04-26] MEDS: ALTEPLASE 2 MG VIAL IVP PRN (05:29)
[2018-04-26] MEDS: DOCOSANOL 2 GM CREAM TP SCH ×5 (05:30→21:26)
[2018-04-26] MEDS: PROPRANOLOL HCL 20 MG TAB PO SCH ×3 (07:22→21:28)
[2018-04-26] MEDS: ENOXAPARIN 40 MG/0.4 ML SYR SC SCH (08:15)
[2018-04-26] MEDS: ASPIRIN 81 MG CHEWABLE TAB TUBE SCH (08:15)
[2018-04-26] MEDS: LANSOPRAZOLE SUSP 30MG/10ML UDSYR (Adult) TUBE SCH (08:16)
[2018-04-26] MEDS: MAGNESIUM OXIDE 400 MG TAB PO SCH (08:16)
[2018-04-26] MEDS: CHLORHEXIDINE GLUCONATE 15 ML UDL PO SCH ×2 (08:16→19:41)
--- NOTE | 2018-04-26 08:17 | SOAPPROG ---
SOAP Progress Note Assessment/Plan: Assessment: POD#10 MICS complex MV repair w #26 Physio ring, access mini right thoracotomy, femoral CPB with primary repair of femoral arteries and vein after decannulation PPD#4 20 Fr G tube. TFs at goal. PPD#3 8-0 Shiley perc trach IV access LUE PICC Severe MR - Amenable to mini invasive approach. Rt fem CPB complicated by unexplained 15 min low flow state refractory to pressors. Cannula ultimately transferred to left side with improved hemodynamics. Slow to arouse and neuro eval c/w anoxic brain injury. 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 Prognosis for functional recovery poor but family would like transition to LTAC. Cardiac status stable. Chest tube out. Antithrombotic prophylaxis with ASA alone. Acute expected blood loss anemia with thrombocytopenia and mild coagulopathy - Stable s/p 5u PRBC. H/H > 01/22 maintained. VTE prophylaxis with LMWH. Postoperative respiratory failure - Inability to clear secretions and reintubated for resp distress. Perc trach placed. Sedation and vent management per pulm. Plan: Cont supportive care as per multidisciplinary team. 04/26/18 08:17 Subjective: Sedated on vent. Moves when touched. Objective: Vital Signs Temp Pulse Resp BP Pulse Ox 37.5 C 100 18 107/68 96 04/26/18 04:00 04/26/18 04:00 04/26/18 04:00 04/26/18 04:00 04/26/18 04:00 Laboratory Results 04/24/18 13:00 04/26/18 04:40 04/25/18 04/26/18 04/27/18 05:59 05:59 05:59 Intake Total 2390.1 1261 Output Total 2576 1999 Balance -185.9 -739 PT 14.3 SEC (12.0-15.0) 04/20/18 04:15 INR 1.09 (0.83-1.16) 04/20/18 04:15 Physical Exam - Physical Exam General Appearance: no apparent distress Respiratory: other (coarse BS) Cardiac/Chest: regular rate, rhythm, other (rt thoracot and bilat groins CDI) Peripheral Pulses: 3+: dorsalis-pedis (R), dorsalis-pedis (L) Abdomen: soft Skin: warm/dry ICD10 Worksheet Patient Problems: Problems Problem Status Onset Acute blood loss anemia Acute Mitral valve regurgitation Acute S/P mitral valve repair Acute ~04/16/18 Depression Chronic
[2018-04-26] MEDS: FAMOTIDINE 20 MG/NACL 50 ML IV SCH (10:57)
--- NOTE | 2018-04-26 12:37 | PDINTPN ---
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 # anoxic/ischemic brain injury # encephalopathy # MR s/p MVR # respiratory failure # paroxysmal sympathetic hyperactivity- intermittent tachycardia, posturing, hyperthermia. # anxiety # s/p PEG 04/22/18 # s/p perc trach 8-0 shiley 04/23/18 # hypokalemia # Anemia. Iron replete based on normal ferritin PLAN # correct hypokalemia # check mag and replete as needed # of bed to chair twice daily as tolerated # propanolol 20 TID via PEG, increase as needed # oxy as needed for sympathetic hyperreactivity # avoid IV morphine now that patient has enteral access # may at some point need long-acting benzo if persistent spasms occur however will avoid for now in the setting of new neurologic insult # Fluoxetine 20 daily # trach sutures to be removed 04/30/18 # will downsize trach to 6-0 shiley vs 7-0 portex after 2-3 weeks (mid April 2018) # right upper incisor tooth mildly loose but unable to be removed with gentle traction. This point will not pursue further intervention # appreciate neurology and CTS management # Analgesia prn oxy # Sedation none # Thromboprophylaxis - SCDs, lovenox 30 sq daily # Head of bed elevated # Ulcer prophylaxis - PPI (for recent PEG) # Glucose SSI # Skin no skin breakdown # Delirium - delirium precautions # Dispo - LTAC placement ABX none IMAGING 04/19/18 MRI brain - findings consistent with ischemic/anoxic brain injury involving bilateral caudate nuclei extending to the periventricular white matter and putamen. Subtle anoxic injury at parietal occipital junction as well as possible superior frontal lobes. focal punctate hemorrhage and right anterior lateral cerebellar lobe as well as the occipital lobes. 04/22/18 CXR w/o focal infiltrate. ETT in place 04/24/18 10:23 04/26/18 12:37 Subjective: Patient was out of bed to cardiac chair yesterday. No significant change in neurologic status. Still with intermittent right-sided posturing intermittent tremors when agitated. I had a 25 min conversation with family yesterday and again a 20 min conversation today discussing prognosis, answered questions and other goals of care. Unable to obtain review of symptoms due to patient's mental status Objective: Vital Signs Temp Pulse Resp BP Pulse Ox 37.9 C 110 H 20 122/83 H 99 04/26/18 12:00 04/26/18 12:00 04/26/18 12:00 04/26/18 12:00 04/26/18 12:00 Laboratory Results 04/24/18 13:00 04/26/18 04:40 04/25/18 04/26/18 04/27/18 05:59 05:59 05:59 Intake Total 2390.1 1261 Output Total 2576 1999 275 Balance -185.9 -739 -275 PT 14.3 SEC (12.0-15.0) 04/20/18 04:15 INR 1.09 (0.83-1.16) 04/20/18 04:15 Physical Exam - Physical Exam General Appearance: obtunded EENT: other (OP clear no discharge) Neck: supple, normal inspection, other (Trach midline) Respiratory: chest non-tender, lungs clear Cardiac/Chest: normal peripheral pulses, regular rate, rhythm, No edema Abdomen: other (Peg in place, nondistended no obvious mass) Skin: normal color, warm/dry, No cyanosis Extremities: other (Posturing as per neuro. Normal inspection. No visible swelling) Neuro/Psych: other (Obtunded, no significant change from yesterday. Intermittent triple flexion decorticate posturing on left side) ICD10 Worksheet Patient Problems: Problems Problem Status Onset Acute blood loss anemia Acute Mitral valve regurgitation Acute S/P mitral valve repair Acute ~04/16/18 Depression Chronic
[2018-04-26] MEDS: ACETAMINOPHEN 650 MG/20.3 ML UDCUP TUBE PRN (19:41)
[2018-04-26] MEDS: FLUoxetine 20 MG CAP TUBE SCH (19:41)
[2018-04-26] MEDS: oxyCODONE ORAL SOLUTION 10 MG/0.5 ML UDSYR TUBE PRN (21:26)
[2018-04-27] MEDS: ACETAMINOPHEN 650 MG/20.3 ML UDCUP TUBE PRN ×2 (05:26→21:16)
[2018-04-27] MEDS: PROPRANOLOL HCL 20 MG TAB PO SCH (05:27)
[2018-04-27] MEDS: METOCLOPRAMIDE 10 MG/2 ML VIAL IV SCH ×3 (05:27→20:47)
[2018-04-27] MEDS: PETROLAT,WHT/MIN OIL/SOD CHL 3.5 GM OPHT.OINT EACHEYE SCH ×5 (05:27→23:00)
[2018-04-27] MEDS: DOCOSANOL 2 GM CREAM TP SCH ×5 (05:31→20:50)
--- NOTE | 2018-04-27 07:59 | SOAPPROG ---
SOAP Progress Note Assessment/Plan: Assessment: POD#11 MICS complex MV repair w #26 Physio ring, access mini right thoracotomy, femoral CPB with primary repair of femoral arteries and vein after decannulation PPD#5 20 Fr G tube. TFs at goal. PPD#4 8-0 Shiley perc trach IV access LUE PICC Severe MR - Amenable to mini invasive approach. Rt fem CPB complicated by unexplained 15 min low flow state refractory to pressors. Cannula ultimately transferred to left side with improved hemodynamics. Slow to arouse and neuro eval c/w anoxic brain injury. 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 Prognosis for functional recovery poor but family would like transition to LTAC. Cardiac status stable. Chest tube out. Antithrombotic prophylaxis with ASA alone. Acute expected blood loss anemia with thrombocytopenia and mild coagulopathy - Stable s/p 5u PRBC. H/H > 01/22 maintained. VTE prophylaxis with LMWH. Postoperative respiratory failure - Inability to clear secretions and reintubated for resp distress. Perc trach placed by critical care. Nutrition - TF @ goal. Plan: Cont supportive care as per multidisciplinary team Trach downsize per Critical Care Plan for LTAC this week Subjective: Weaned off sedation. Spontaneous movement. Required x2 doses of Ativan last night. Objective: Vital Signs Temp Pulse Resp BP Pulse Ox 37.6 C 103 H 21 H 115/70 99 04/27/18 07:52 04/27/18 07:52 04/27/18 07:52 04/27/18 07:52 04/27/18 07:52 Laboratory Results 04/24/18 13:00 04/26/18 18:05 04/26/18 04/27/18 04/28/18 05:59 05:59 05:59 Intake Total 1261 1201 Output Total 1999 1150 Balance -739 51 PT 14.3 SEC (12.0-15.0) 04/20/18 04:15 INR 1.09 (0.83-1.16) 04/20/18 04:15 - Physical Exam General Appearance: sleeping Respiratory: trach collar 99% on 8L, dressing slightly red Cardiac/Chest: regular rate, rhythm, other (rt thoracot and bilat groins CDI), no edema Peripheral Pulses: 3+: dorsalis-pedis (R), dorsalis-pedis (L) Abdomen: soft Skin: warm/dry ICD10 Worksheet Patient Problems: Problems Problem Status Onset Acute blood loss anemia Acute Mitral valve regurgitation Acute S/P mitral valve repair Acute ~04/16/18 Depression Chronic
[2018-04-27] MEDS: ASPIRIN 81 MG CHEWABLE TAB TUBE SCH (08:24)
[2018-04-27] MEDS: ENOXAPARIN 30 MG/0.3 ML SYR SC SCH (08:24)
[2018-04-27] MEDS: CHLORHEXIDINE GLUCONATE 15 ML UDL PO SCH ×2 (08:24→20:47)
[2018-04-27] MEDS: PROPRANOLOL HCL 20 MG TAB TUBE SCH ×2 (08:24→16:45)
[2018-04-27] MEDS: MAGNESIUM OXIDE 400 MG TAB TUBE SCH (08:24)
[2018-04-27] MEDS: LANSOPRAZOLE SUSP 30MG/10ML UDSYR (Adult) TUBE SCH (08:24)
--- NOTE | 2018-04-27 09:49 | PDINTPN ---
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 # anoxic/ischemic brain injury # encephalopathy # MR s/p MVR # respiratory failure # paroxysmal sympathetic hyperactivity- intermittent tachycardia, posturing, hyperthermia. Had generalized clonic activity last night, resolved with Ativan. # anxiety # s/p PEG 04/22/18 # s/p perc trach 8-0 shiley 04/23/18 # hypokalemia: Resolved # Anemia. Iron replete based on normal ferritin PLAN # Follow potassium # of bed to chair twice daily as tolerated # propanolol 20 TID via PEG, increase as needed # oxy as needed for sympathetic hyperreactivity # avoid IV morphine now that patient has enteral access # may at some point need long-acting benzo if persistent spasms occur however will avoid for now in the setting of new neurologic insult # If has recurrent clonic activity, consider re-consult of neurology for EEG, possibly Keppra # Fluoxetine 20 daily # trach sutures to be removed 04/30/18 # will downsize trach to 6-0 shiley vs 7-0 portex after 2-3 weeks (mid April 2018) # right upper incisor tooth mildly loose but unable to be removed with gentle traction. This point will not pursue further intervention # Analgesia prn oxy # Sedation none # Thromboprophylaxis - SCDs, lovenox 30 sq daily # Head of bed elevated # Ulcer prophylaxis - PPI (for recent PEG) # Glucose SSI # Skin no skin breakdown # Delirium - delirium precautions # Dispo - LTAC placement 04/27/18 09:59 Subjective: Not responding to questions/commands Objective: Vital Signs Temp Pulse Resp BP Pulse Ox 37.6 C 97 21 H 108/65 99 04/27/18 07:52 04/27/18 08:24 04/27/18 07:52 04/27/18 08:24 04/27/18 07:52 Laboratory Results 04/24/18 13:00 04/26/18 18:05 04/26/18 04/27/18 04/28/18 05:59 05:59 05:59 Intake Total 1261 1201 Output Total 2000 1150 Balance -739 51 PT 14.3 SEC (12.0-15.0) 04/20/18 04:15 INR 1.09 (0.83-1.16) 04/20/18 04:15 Physical Exam - Physical Exam General Appearance: unresponsive EENT: normal ENT inspection Neck: normal inspection, other (trach OK) Respiratory: lungs clear Cardiac/Chest: regular rate, rhythm, No edema Abdomen: normal bowel sounds, non-tender Skin: normal color, warm/dry Extremities: normal inspection Neuro/Psych: other (increased tone), No alert ICD10 Worksheet Patient Problems: Problems Problem Status Onset Acute blood loss anemia Acute Mitral valve regurgitation Acute S/P mitral valve repair Acute ~04/16/18 Depression Chronic
--- NOTE | 2018-04-27 11:57 | ASMTCMCOM ---
CM Note CM Note Notes: Spoke to [facility] and sent updated patient info to them for INS Auth. Parents visiting facility today. Date Signed: 04/27/2018 11:57 AM Electronically Signed By:Vivienne Currie LCSW
[2018-04-27] MEDS: FLUoxetine 20 MG CAP TUBE SCH (20:47)
[2018-04-28] MEDS: PROPRANOLOL HCL 20 MG TAB TUBE SCH ×3 (00:44→15:45)
[2018-04-28] MEDS: DOCOSANOL 2 GM CREAM TP SCH ×5 (05:45→22:00)
[2018-04-28] MEDS: PETROLAT,WHT/MIN OIL/SOD CHL 3.5 GM OPHT.OINT EACHEYE SCH ×3 (05:46→17:35)
[2018-04-28] MEDS: ACETAMINOPHEN 650 MG/20.3 ML UDCUP TUBE PRN ×3 (06:27→15:45)
[2018-04-28] MEDS: METOCLOPRAMIDE 10 MG/2 ML VIAL IV SCH ×3 (07:17→21:11)
[2018-04-28] MEDS: ASPIRIN 81 MG CHEWABLE TAB TUBE SCH (07:57)
[2018-04-28] MEDS: MAGNESIUM OXIDE 400 MG TAB TUBE SCH (07:58)
[2018-04-28] MEDS: CHLORHEXIDINE GLUCONATE 15 ML UDL PO SCH ×2 (07:58→21:11)
[2018-04-28] MEDS: ENOXAPARIN 30 MG/0.3 ML SYR SC SCH (07:58)
--- NOTE | 2018-04-28 08:04 | SOAPPROG ---
SOAP Progress Note Assessment/Plan: Assessment: POD#12 MICS complex MV repair w #26 Physio ring, access mini right thoracotomy, femoral CPB with primary repair of femoral arteries and vein after decannulation PPD#6 20 Fr G tube. TFs at goal. PPD#5 8-0 Shiley perc trach IV access LUE PICC Severe MR - Amenable to mini invasive approach. Rt fem CPB complicated by unexplained 15 min low flow state refractory to pressors. Cannula ultimately transferred to left side with improved hemodynamics. Slow to arouse and neuro eval c/w anoxic brain injury. 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 Prognosis for functional recovery poor but family would like transition to LTAC. Cardiac status stable. Chest tube out. Antithrombotic prophylaxis with ASA alone. Acute expected blood loss anemia with thrombocytopenia and mild coagulopathy - Stable s/p 5u PRBC. H/H > 01/22 maintained. VTE prophylaxis with LMWH. Postoperative respiratory failure - Inability to clear secretions and reintubated for resp distress. Perc trach placed by critical care. Nutrition - TF @ goal. Plan: Cont supportive care as per multidisciplinary team Awaiting LTAC placement/approval Subjective: Febrile overnight. No clonic activity. Objective: Vital Signs Temp Pulse Resp BP Pulse Ox 38.0 C 122 H 28 H 146/95 H 99 04/28/18 07:05 04/28/18 07:57 04/28/18 07:05 04/28/18 07:05 04/28/18 07:05 Laboratory Results 04/24/18 13:00 04/26/18 18:05 04/27/18 04/28/18 04/29/18 05:59 05:59 05:59 Intake Total 1201 1219 Output Total 1150 1500 Balance 51 -281 PT 14.3 SEC (12.0-15.0) 04/20/18 04:15 INR 1.09 (0.83-1.16) 04/20/18 04:15 General Appearance: NAD Respiratory: trach collar, dressing slightly red Cardiac/Chest: regular rate, rhythm, other (rt thoracot and bilat groins CDI), no edema, right thigh ecchymosis Abdomen: soft Skin: warm/dry ICD10 Worksheet Patient Problems: Problems Problem Status Onset Acute blood loss anemia Acute Mitral valve regurgitation Acute S/P mitral valve repair Acute ~04/16/18 Depression Chronic
[2018-04-28] MEDS: LANSOPRAZOLE SUSP 30MG/10ML UDSYR (Adult) TUBE SCH (09:45)
--- NOTE | 2018-04-28 12:22 | PDINTPN ---
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 # anoxic/ischemic brain injury # encephalopathy # MR s/p MVR # respiratory failure # paroxysmal sympathetic hyperactivity- intermittent tachycardia, posturing, hyperthermia. Had generalized clonic activity 04/26 night, resolved with Ativan. Had lip twitching and dilated pupils this morning, now resolved # anxiety # s/p PEG 04/22/18 # s/p perc trach 8-0 shiley 04/23/18 # hypokalemia: Resolved # Anemia. Iron replete based on normal ferritin PLAN # Follow potassium # of bed to chair twice daily as tolerated # propanolol 20 TID via PEG, increase as needed # oxy as needed for sympathetic hyperreactivity # avoid IV morphine now that patient has enteral access # may at some point need long-acting benzo if persistent spasms occur however will avoid for now in the setting of new neurologic insult # If has recurrent clonic activity, consider re-consult of neurology for EEG, possibly Keppra # Fluoxetine 20 daily # trach sutures to be removed 04/30/18 # will downsize trach to 6-0 shiley vs 7-0 portex after 2-3 weeks (mid April 2018) # right upper incisor tooth mildly loose but unable to be removed with gentle traction. This point will not pursue further intervention # Analgesia prn oxy # Sedation none # Thromboprophylaxis - SCDs, lovenox 30 sq daily # Head of bed elevated # Ulcer prophylaxis - PPI (for recent PEG) # Remove coronel, try external catheter # Glucose SSI # Skin no skin breakdown # Delirium - delirium precautions # Dispo - LTAC placement 04/28/18 12:21 Subjective: Unresponsive Objective: Vital Signs Temp Pulse Resp BP Pulse Ox 38.0 C 115 H 18 135/90 H 28 L 04/28/18 11:40 04/28/18 11:40 04/28/18 11:40 04/28/18 11:40 04/28/18 11:40 Laboratory Results 04/24/18 13:00 04/26/18 18:05 04/27/18 04/28/18 04/29/18 05:59 05:59 05:59 Intake Total 1201 1219 260 Output Total 1150 1500 Balance 51 -281 260 PT 14.3 SEC (12.0-15.0) 04/20/18 04:15 INR 1.09 (0.83-1.16) 04/20/18 04:15 Physical Exam - Physical Exam General Appearance: no apparent distress, unresponsive, No alert EENT: normal ENT inspection Neck: normal inspection, other (trach OK) Respiratory: lungs clear, normal breath sounds Cardiac/Chest: regular rate, rhythm, No edema Abdomen: normal bowel sounds, non-tender Skin: normal color, warm/dry Extremities: normal inspection Neuro/Psych: other (increased tone), No alert ICD10 Worksheet Patient Problems: Problems Problem Status Onset Acute blood loss anemia Acute Mitral valve regurgitation Acute S/P mitral valve repair Acute ~04/16/18 Depression Chronic
[2018-04-28] MEDS: oxyCODONE ORAL SOLUTION 10 MG/0.5 ML UDSYR TUBE PRN (13:30)
[2018-04-28] MEDS: FLUoxetine 20 MG CAP TUBE SCH (21:11)
[2018-04-29] MEDS: PROPRANOLOL HCL 20 MG TAB TUBE SCH ×4 (00:06→23:39)
[2018-04-29] MEDS: oxyCODONE ORAL SOLUTION 10 MG/0.5 ML UDSYR TUBE PRN (00:17)
[2018-04-29] MEDS: METOPROLOL TARTRATE 5 MG/5 ML INJ IVP PRN (04:31)
[2018-04-29] MEDS: METOCLOPRAMIDE 10 MG/2 ML VIAL IV SCH ×3 (05:13→23:14)
[2018-04-29] MEDS: DOCOSANOL 2 GM CREAM TP SCH ×5 (05:14→23:11)
[2018-04-29] MEDS: PETROLAT,WHT/MIN OIL/SOD CHL 3.5 GM OPHT.OINT EACHEYE SCH ×4 (05:14→17:04)
[2018-04-29] MEDS: CHLORHEXIDINE GLUCONATE 15 ML UDL PO SCH ×2 (07:54→19:53)
[2018-04-29] MEDS: MAGNESIUM OXIDE 400 MG TAB TUBE SCH (08:04)
[2018-04-29] MEDS: LANSOPRAZOLE SUSP 30MG/10ML UDSYR (Adult) TUBE SCH (08:05)
[2018-04-29] MEDS: ASPIRIN 81 MG CHEWABLE TAB TUBE SCH (08:05)
[2018-04-29] MEDS: ENOXAPARIN 30 MG/0.3 ML SYR SC SCH (08:05)
--- NOTE | 2018-04-29 08:15 | SOAPPROG ---
SOAP Progress Note Assessment/Plan: Assessment: POD#13 MICS complex MV repair w #26 Physio ring, access mini right thoracotomy, femoral CPB with primary repair of femoral arteries and vein after decannulation PPD#7 20 Fr G tube. TFs at goal. PPD#6 8-0 Shiley perc trach IV access LUE PICC Severe MR - Amenable to mini invasive approach. Rt fem CPB complicated by unexplained 15 min low flow state refractory to pressors. Cannula ultimately transferred to left side with improved hemodynamics. Slow to arouse and neuro eval c/w anoxic brain injury. 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 Cardiac status stable on BB. Antithrombotic prophylaxis with ASA alone. Surgical wounds healing appropriately. Prognosis for functional recovery poor but family would like transition to LTAC. Acute expected blood loss anemia with thrombocytopenia and mild coagulopathy - Stable s/p 5u PRBC. H/H > 01/22 maintained. VTE prophylaxis with LMWH. Postoperative respiratory failure - Inability to clear secretions and reintubated for resp distress. Perc trach placed. Management per pulm. Plan: Ck H/H. Cont supportive care as per multidisciplinary team. Awaiting LTAC placement/approval 04/29/18 08:11 Subjective: Unresponsive. Left sided neglect. Objective: Vital Signs Temp Pulse Resp BP Pulse Ox 37.2 C 116 H 26 H 122/76 H 99 04/29/18 07:56 04/29/18 07:56 04/29/18 03:26 04/29/18 07:56 04/29/18 07:56 Laboratory Results 04/24/18 13:00 04/26/18 18:05 04/28/18 04/29/18 04/30/18 05:59 05:59 05:59 Intake Total 1219 1861 Output Total 1500 505 Balance -281 1356 PT 14.3 SEC (12.0-15.0) 04/20/18 04:15 INR 1.09 (0.83-1.16) 04/20/18 04:15 Uptrending HR and BP. Tmax 38.9 last pm. Physical Exam - Physical Exam General Appearance: no apparent distress Respiratory: lungs clear (grossly), other (rt thoracotomy and bilat groins CDI.) Cardiac/Chest: regular rate, rhythm, tachycardia Abdomen: soft Skin: warm/dry Extremities: other (no visible edema) ICD10 Worksheet Patient Problems: Problems Problem Status Onset Acute blood loss anemia Acute Mitral valve regurgitation Acute S/P mitral valve repair Acute ~04/16/18 Depression Chronic
[2018-04-29] MEDS: ACETAMINOPHEN 650 MG/20.3 ML UDCUP TUBE PRN ×3 (12:07→19:53)
--- NOTE | 2018-04-29 12:27 | PDINTPN ---
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 # anoxic/ischemic brain injury # encephalopathy # MR s/p MVR # respiratory failure # paroxysmal sympathetic hyperactivity- intermittent tachycardia, posturing, hyperthermia. Had generalized clonic activity 04/26 night, resolved with Ativan. Had lip twitching and dilated pupils this morning, now resolved # anxiety # s/p PEG 04/22/18 # s/p perc trach 8-0 shiley 04/23/18 # hypokalemia: Resolved # Anemia. Iron replete based on normal ferritin PLAN # Repeat Lytes, CBC # of bed to chair twice daily as tolerated # propanolol 20 TID via PEG, increase as needed # oxy as needed for sympathetic hyperreactivity # avoid IV morphine now that patient has enteral access # may at some point need long-acting benzo if persistent spasms occur however will avoid for now in the setting of new neurologic insult # If has recurrent clonic activity, consider re-consult of neurology for EEG, possibly Keppra # Fluoxetine 20 daily # trach sutures to be removed 04/30/18 # will downsize trach to 6-0 shiley vs 7-0 portex after 2-3 weeks (mid April 2018) # right upper incisor tooth mildly loose but unable to be removed with gentle traction. This point will not pursue further intervention # Analgesia prn oxy # Sedation none # Thromboprophylaxis - SCDs, lovenox 30 sq daily # Head of bed elevated # Ulcer prophylaxis - PPI (for recent PEG) # continue external urinary catheter # Glucose SSI # Skin no skin breakdown # Delirium - delirium precautions # Dispo - LTAC placement 04/28/18 12:21 04/29/18 12:30 Subjective: Unresponsive Objective: Vital Signs Temp Pulse Resp BP Pulse Ox 38.5 C H 121 H 26 H 139/90 H 100 04/29/18 12:00 04/29/18 12:00 04/29/18 03:26 04/29/18 12:00 04/29/18 12:00 Laboratory Results 04/24/18 13:00 04/26/18 18:05 04/28/18 04/29/18 04/30/18 05:59 05:59 05:59 Intake Total 1219 1861 Output Total 1500 505 Balance -281 1356 PT 14.3 SEC (12.0-15.0) 04/20/18 04:15 INR 1.09 (0.83-1.16) 04/20/18 04:15 Physical Exam - Physical Exam General Appearance: unresponsive EENT: normal ENT inspection Neck: other (trach OK) Respiratory: lungs clear Cardiac/Chest: regular rate, rhythm, No edema Abdomen: normal bowel sounds, non-tender Skin: normal color, warm/dry Extremities: normal inspection Neuro/Psych: other (Less rigid than yesterday.), No alert ICD10 Worksheet Patient Problems: Problems Problem Status Onset Acute blood loss anemia Acute Mitral valve regurgitation Acute S/P mitral valve repair Acute ~04/16/18 Depression Chronic
--- NOTE | 2018-04-29 16:34 | ASMTCMCOM ---
DENEEN Note DENEEN Note Notes: Spoke with Maryanne at [facility] this morning and this afternoon. She is still awaiting insurance auth for the patient. She does currently have beds so d/c can happen as soon as the auth comes through. CM will follow. Date Signed: 04/29/2018 04:34 PM Electronically Signed By:Haritha Fu LCSW
[2018-04-29] MEDS: FLUoxetine 20 MG CAP TUBE SCH (19:53)
[2018-04-30] MEDS: PETROLAT,WHT/MIN OIL/SOD CHL 3.5 GM OPHT.OINT EACHEYE SCH ×4 (02:59→18:34)
[2018-04-30 04:33] LABS: PLATELET COUNT 498 10^3/uL (150-400)
[2018-04-30] MEDS: METOCLOPRAMIDE 10 MG/2 ML VIAL IV SCH ×3 (05:20→20:14)
[2018-04-30] MEDS: DOCOSANOL 2 GM CREAM TP SCH ×5 (05:21→20:29)
[2018-04-30] MEDS: METOPROLOL TARTRATE 5 MG/5 ML INJ IVP PRN (06:34)
--- NOTE | 2018-04-30 07:09 | SOAPPROG ---
SOAP Progress Note Assessment/Plan: Assessment: POD#14 MICS complex MV repair w #26 Physio ring, access mini right thoracotomy, femoral CPB with primary repair of femoral arteries and vein after decannulation PPD#8 20 Fr G tube. TFs at goal. PPD#7 8-0 Shiley perc trach IV access LUE PICC Severe MR - Amenable to mini invasive approach. Rt fem CPB complicated by unexplained 15 min low flow state refractory to pressors. Cannula ultimately transferred to left side with improved hemodynamics. Slow to arouse and neuro eval c/w anoxic brain injury. 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 Cardiac status stable on BB. Antithrombotic prophylaxis with ASA alone. Surgical wounds healing appropriately. Prognosis for functional recovery poor but family would like transition to LTAC. Acute expected blood loss anemia with thrombocytopenia and mild coagulopathy - Stable s/p 5u PRBC. H/H > 10/30 maintained. VTE prophylaxis with LMWH. Postoperative respiratory failure - Inability to clear secretions and reintubated for resp distress. Perc trach placed. Management per pulm. Plan: Fever w/u per ICU. Cont supportive care as per multidisciplinary team. Awaiting LTAC placement/approval 04/29/18 08:11 Subjective: Awake but unresponsive Objective: Vital Signs Temp Pulse Resp BP Pulse Ox 38.1 C 130 H 16 138/89 H 100 04/30/18 04:00 04/30/18 06:34 04/30/18 05:45 04/30/18 06:34 04/30/18 05:45 Laboratory Results 04/30/18 04:15 04/30/18 04:15 04/29/18 04/30/18 05/01/18 05:59 05:59 05:59 Intake Total 1861 1829 Output Total 505 600 Balance 1356 1229 PT 14.3 SEC (12.0-15.0) 04/20/18 04:15 INR 1.09 (0.83-1.16) 04/20/18 04:15 more persistent low grade fever since yest afternoon w sl inc WBC secondary elev HR and BP stable FiO2 Physical Exam - Physical Exam General Appearance: no apparent distress Respiratory: lungs clear (grossly), other (rt thoracot and bilat groins ok, no erythema) Cardiac/Chest: regular rate, rhythm, tachycardia Abdomen: soft Pelvic Exam: other (urine clear) Skin: other (flushed) Extremities: other (no visible edema) ICD10 Worksheet Patient Problems: Problems Problem Status Onset Acute blood loss anemia Acute Mitral valve regurgitation Acute S/P mitral valve repair Acute ~04/16/18 Depression Chronic
[2018-04-30] MEDS: ACETAMINOPHEN 650 MG/20.3 ML UDCUP TUBE PRN ×3 (07:36→20:14)
[2018-04-30] MEDS: PROPRANOLOL HCL 20 MG TAB TUBE SCH ×2 (07:37→16:00)
[2018-04-30] MEDS: MAGNESIUM OXIDE 400 MG TAB TUBE SCH (07:37)
[2018-04-30] MEDS: ENOXAPARIN 30 MG/0.3 ML SYR SC SCH (07:38)
[2018-04-30] MEDS: CHLORHEXIDINE GLUCONATE 15 ML UDL PO SCH ×2 (07:38→20:13)
[2018-04-30] MEDS: ASPIRIN 81 MG CHEWABLE TAB TUBE SCH (07:38)
[2018-04-30] MEDS: LANSOPRAZOLE SUSP 30MG/10ML UDSYR (Adult) TUBE SCH (08:21)
[2018-04-30] MEDS ORDERED: ENOXAPARIN 30 MG/0.3 ML SYR SC SCH (10:37)
--- NOTE | 2018-04-30 11:00 | PDINTPN ---
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 # anoxic/ischemic brain injury # encephalopathy # MR s/p MVR # respiratory failure # paroxysmal sympathetic hyperactivity- intermittent tachycardia, posturing, hyperthermia. Had generalized clonic activity 04/26 night, resolved with Ativan. Had lip twitching and dilated pupils this morning, now resolved # anxiety # s/p PEG 04/22/18 # s/p perc trach 8-0 shiley 04/23/18 # hypokalemia: Resolved # Anemia. Iron replete based on normal ferritin # Elevated LFTs PLAN # Repeat Lytes, CBC # of bed to chair twice daily as tolerated # propanolol 20 TID via PEG, increase as needed # oxy as needed for sympathetic hyperreactivity # may at some point need long-acting benzo if persistent spasms occur however will avoid for now in the setting of new neurologic insult # If has recurrent clonic activity, consider re-consult of neurology for EEG, possibly Keppra # Fluoxetine 20 daily # trach sutures to be removed today # will downsize trach to 6-0 shiley vs 7-0 portex after 2-3 weeks (mid April 2018) # right upper incisor tooth mildly loose but unable to be removed with gentle traction. This point will not pursue further intervention # Analgesia prn oxy # Sedation none # Thromboprophylaxis - SCDs, lovenox, increaseto 40 sq daily # Head of bed elevated # Ulcer prophylaxis - PPI (for recent PEG) # continue external urinary catheter # Glucose SSI # Skin no skin breakdown # Melatonin to help with sleep # Check CXR, U/A # Follow LFTs # Dispo - LTAC placement 04/30/18 10:57 Subjective: Unresponsive Objective: Vital Signs Temp Pulse Resp BP Pulse Ox 38.3 C 95 20 145/92 H 100 04/30/18 08:26 04/30/18 08:26 04/30/18 08:26 04/30/18 07:28 04/30/18 08:26 Laboratory Results 04/30/18 04:15 04/30/18 04:15 04/29/18 04/30/18 05/01/18 05:59 05:59 05:59 Intake Total 1861 1829 200 Output Total 505 600 Balance 1356 1229 200 PT 14.3 SEC (12.0-15.0) 04/20/18 04:15 INR 1.09 (0.83-1.16) 04/20/18 04:15 Laboratory Tests 04/30/18 04:15 AST 108 H ALT 152 H Physical Exam - Physical Exam General Appearance: unresponsive EENT: normal ENT inspection Neck: other (trach OK) Respiratory: lungs clear, normal breath sounds Cardiac/Chest: regular rate, rhythm, No edema Abdomen: normal bowel sounds, non-tender Skin: normal color, warm/dry Extremities: normal inspection Neuro/Psych: other (Some upper lip twitching with leftward gaze. Rigid muscle tone throughout.) ICD10 Worksheet Patient Problems: Problems Problem Status Onset Acute blood loss anemia Acute Mitral valve regurgitation Acute S/P mitral valve repair Acute ~04/16/18 Depression Chronic
--- NOTE | 2018-04-30 12:59 | ASMTCMCOM ---
CM Note CM Note Notes: Contacted Maryanne at [facility] and she still does not have the insurance auth. She thinks it is due to the holidays. Contacted Kristina in who is also going to look into what is holding up the process. Met with patient's parents who have to make a trip back to [place] to take care of personal affairs. They do not want to leave until patient is settled in the LTAC. But they were hoping to get going by the 04 of May. They are planning to return as soon as they can to continue to support the patient's care and support their other daughter as well. Kristina will notify me as soon as she has talked to [facility]. CM will follow. Date Signed: 04/30/2018 12:58 PM Electronically Signed By:Haritha Fu LCSW
--- NOTE | 2018-04-30 13:00 | ASMTCMCOM ---
CM Note CM Note Notes: Updates sent via [employer] to [facility]. CM following. Date Signed: 04/30/2018 12:59 PM Electronically Signed By:Haritha Fu LCSW
[2018-04-30] MEDS: SENNOSIDES 17.6 MG/10 ML UDL TUBE PRN ×2 (13:40→20:15)
[2018-04-30] MEDS: MELATONIN 3 MG TAB PO SCH (20:14)
[2018-04-30] MEDS: FLUoxetine 20 MG CAP TUBE SCH (20:14)
[2018-05-01] MEDS: LORazepam 2 MG/ML INJ IVP PRN ×2 (00:16→21:48)
[2018-05-01] MEDS: PETROLAT,WHT/MIN OIL/SOD CHL 3.5 GM OPHT.OINT EACHEYE SCH ×4 (00:21→17:54)
[2018-05-01] MEDS: PROPRANOLOL HCL 20 MG TAB TUBE SCH ×3 (00:21→17:50)
[2018-05-01] MEDS: ACETAMINOPHEN 650 MG/20.3 ML UDCUP TUBE PRN ×4 (01:31→21:37)
[2018-05-01] MEDS: DOCOSANOL 2 GM CREAM TP SCH ×5 (05:54→21:50)
[2018-05-01] MEDS: METOCLOPRAMIDE 10 MG/2 ML VIAL IV SCH ×3 (05:54→21:38)
[2018-05-01] MEDS: MAGNESIUM OXIDE 400 MG TAB TUBE SCH (08:37)
[2018-05-01] MEDS: ASPIRIN 81 MG CHEWABLE TAB TUBE SCH (08:37)
[2018-05-01] MEDS: ENOXAPARIN 40 MG/0.4 ML SYR SC SCH (08:38)
[2018-05-01] MEDS: LANSOPRAZOLE SUSP 30MG/10ML UDSYR (Adult) TUBE SCH (08:39)
--- NOTE | 2018-05-01 08:43 | SOAPPROG ---
SOAP Progress Note Assessment/Plan: Assessment: POD#15 MICS complex MV repair w #26 Physio ring, access mini right thoracotomy, femoral CPB with primary repair of femoral arteries and vein after decannulation PPD#9 20 Fr G tube. TFs at goal. PPD#8 8-0 Shiley perc trach IV access LUE PICC Severe MR - Amenable to mini invasive approach. Rt fem CPB complicated by unexplained 15 min low flow state refractory to pressors. Cannula ultimately transferred to left side with improved hemodynamics. Slow to arouse and neuro eval c/w anoxic brain injury. 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 Cardiac status stable on BB. Antithrombotic prophylaxis with ASA alone. Surgical wounds healing appropriately. Prognosis for functional recovery poor but family would like transition to LTAC. Acute expected blood loss anemia with thrombocytopenia and mild coagulopathy - Stable s/p 5u PRBC. H/H > 10/30 maintained. VTE prophylaxis with LMWH. Postoperative respiratory failure - Inability to clear secretions and reintubated for resp distress. Perc trach placed. Management per pulm. Fevers - Tmax 39.1 overnight. WBC 13.8. CXR yesterday with worsened RLL consolidation/atelectasis/effusion (compared to 12.27 CXR). Urine with 4+ bacteria, + WBC, and 3+ LE. Incisions w/o erythema. Plan: Fever management per ICU team. Cont supportive care as per multidisciplinary team. Still awaiting LTAC insurance authorization. Subjective: Unresponsive Objective: Vital Signs Temp Pulse Resp BP Pulse Ox 37.7 C 120 H 21 H 115/91 H 100 05/01/18 08:00 05/01/18 08:37 05/01/18 08:00 05/01/18 08:37 05/01/18 08:00 Laboratory Results 04/30/18 04:15 04/30/18 04:15 04/30/18 05/01/18 05/02/18 05:59 05:59 05:59 Intake Total 1829 2021 Output Total 600 225 Balance 1229 1796 PT 14.3 SEC (12.0-15.0) 04/20/18 04:15 INR 1.09 (0.83-1.16) 04/20/18 04:15 - Physical Exam General Appearance: no apparent distress, unresponsive Respiratory: lungs clear (grossly), other (rt thoracot and bilat groins ok, no erythema) Cardiac/Chest: regular rate, rhythm Abdomen: soft, G tube Skin: warm, dry Extremities: other (no visible edema) ICD10 Worksheet Patient Problems: Problems Problem Status Onset Acute blood loss anemia Acute Mitral valve regurgitation Acute S/P mitral valve repair Acute ~04/16/18 Depression Chronic
[2018-05-01] MEDS: CHLORHEXIDINE GLUCONATE 15 ML UDL PO SCH (08:49)
--- NOTE | 2018-05-01 09:49 | PDINTPN ---
Hide House Supervisor Progress Note Assessment/Plan: Assessment: 23 yo F w severe mitral regurgitation s/p MVR whose course has been complicated by severe anoxic brain injury in the setting of low intraoperative perfusion pressure. # anoxic/ischemic brain injury # encephalopathy # MR s/p MVR # respiratory failure: Chest x-ray with increased her right base atelectasis/ effusion/infiltrate # paroxysmal sympathetic hyperactivity- intermittent tachycardia, posturing, hyperthermia. Had generalized clonic activity 04/26 night, resolved with Ativan. # anxiety # s/p PEG 04/22/18 # s/p perc trach 8-0 shiley 04/23/18 # hypokalemia: Resolved # Anemia. Improved. Iron replete based on normal ferritin # Elevated LFTs PLAN # Repeat Lytes, CBC # of bed to chair twice daily as tolerated # Consider bronchoscopy today to determine if patient has significant right lower lobe secretions/pneumonia, with increased infiltrate on chest x-ray, intermittent fevers, and rising white blood count. # propanolol 20 TID via PEG, increase as needed # oxy as needed for sympathetic hyperreactivity # may at some point need long-acting benzo if persistent spasms occur however will avoid for now in the setting of new neurologic insult # If has recurrent clonic activity, consider re-consult of neurology for EEG, possibly Keppra # Fluoxetine 20 daily # will downsize trach to 6-0 shiley vs 7-0 portex after 2-3 weeks (mid April 2018) # right upper incisor tooth mildly loose but unable to be removed with gentle traction. This point will not pursue further intervention # Analgesia prn oxy # Sedation none # Thromboprophylaxis - SCDs, lovenox, increaseto 40 sq daily # Head of bed elevated # Ulcer prophylaxis - PPI (for recent PEG) # continue external urinary catheter # Glucose SSI # Skin no skin breakdown # Melatonin to help with sleep # Check CXR, U/A # Follow LFTs # Dispo - LTAC placement 05/01/18 09:49 Subjective: Unresponsive Objective: Vital Signs Temp Pulse Resp BP Pulse Ox 37.7 C 120 H 21 H 115/91 H 100 05/01/18 08:00 05/01/18 08:37 05/01/18 08:00 05/01/18 08:37 05/01/18 08:00 Microbiology 04/30/18 17:00 - Final Sputum, Induced/Suctioned Laboratory Results 04/30/18 04:15 04/30/18 04:15 04/30/18 05/01/18 05/02/18 05:59 05:59 05:59 Intake Total 1829 1 Output Total 600 225 Balance 1229 1796 PT 14.3 SEC (12.0-15.0) 04/20/18 04:15 INR 1.09 (0.83-1.16) 04/20/18 04:15 Sputum: 1+ GNR Physical Exam - Physical Exam General Appearance: unresponsive EENT: normal ENT inspection Neck: other (Trach OK) Respiratory: lungs clear, normal breath sounds Abdomen: normal bowel sounds, non-tender Skin: normal color, warm/dry Extremities: normal inspection Neuro/Psych: other (Less rigid than yesterday), No alert, No oriented x 3 ICD10 Worksheet Patient Problems: Problems Problem Status Onset Acute blood loss anemia Acute Mitral valve regurgitation Acute S/P mitral valve repair Acute ~04/16/18 Depression Chronic
[2018-05-01] MEDS: SENNOSIDES 17.6 MG/10 ML UDL TUBE PRN (12:21)
[2018-05-01] MEDS ORDERED: LIDOCAINE 1% 300 MG/30 ML SDV MISC ONE (13:28)
[2018-05-01] MEDS ORDERED: LIDOCAINE 2% JELLY 5 ML TUBE TP ONE (13:28)
--- NOTE | 2018-05-01 14:52 | GOP ---
DATE OF OPERATION: 05/01/2018 SURGEON: Sergey House MD PREOPERATIVE DIAGNOSIS: POSTOPERATIVE DIAGNOSIS: PROCEDURE PERFORMED: Flexible fiberoptic bronchoscopy. FINDINGS: INDICATIONS: Pneumonia, worsening chest x-ray with fever, possible retained mucus plugs. DESCRIPTION OF PROCEDURE: The risks and benefits of the procedure were explained to the patient's pa rents, who agreed to proceed. The entire procedure was performed in the intensive care unit with the patient under blood pressure, EKG, and oximetry monitoring. It was my assessment that there was no risk of airborne infection from the procedure. After an appropriate time-out, 3 cc of 1% lidocaine w ere instilled into the patient's tracheostomy tube. The bronchoscope was advanced through the trache ostomy tube, where I encountered a small amount of purulent secretions in the distal tracheostomy tub e and mid trachea. These were easily suctioned. I then proceeded to examine the right-sided airways , where a small amount of purulent secretions were seen. They were not occlusive. I then turned to the left-sided airways, with similar findings. I then did a small volume lavage of the right lower l obe, with return of cloudy fluid. The patient tolerated the procedure well. No sedation was used. Specimens will be sent for Gram stain and culture. /[id number]/MODL
--- NOTE | 2018-05-01 15:02 | ASMTCMCOM ---
CM Note CM Note Notes: Spoke with Maryanne from [facility] and she states the insurance company says they are out of network for the patient. Maryanne agreed to visit with the patient's parents today and go over what the out of network costs would be and whether or not they still wanted to use their facility. Maryanne did meet with the parents and they want to proceed with placement despite the out of pocket expenses. Maryanne states they have a policy now that a financial agreement has to be signed prior to admit. She is going to fax it to us as soon as she has it so the parents can sign and we can fax it back. We cannot proceed with the transfer to their facility until this is done. Currently we are waiting for them to get us the agreement. Maryanne did state she thought we could do a Friday admit if the agreement gets done today. The discharge plan remains [facility]. DENEEN will follow. Date Signed: 05/01/2018 03:01 PM Electronically Signed By:Haritha Fu LCSW
[2018-05-01] MEDS: METOPROLOL TARTRATE 5 MG/5 ML INJ IVP PRN (16:15)
[2018-05-01] MEDS: FLUoxetine 20 MG CAP TUBE SCH (21:38)
[2018-05-01] MEDS: MELATONIN 3 MG TAB PO SCH (21:38)
[2018-05-02] MEDS: PROPRANOLOL HCL 20 MG TAB TUBE SCH ×4 (00:07→23:41)
[2018-05-02] MEDS: PETROLAT,WHT/MIN OIL/SOD CHL 3.5 GM OPHT.OINT EACHEYE SCH ×4 (00:07→18:37)
[2018-05-02] MEDS: ACETAMINOPHEN 650 MG/20.3 ML UDCUP TUBE PRN ×4 (06:28→23:41)
[2018-05-02] MEDS: DOCOSANOL 2 GM CREAM TP SCH ×5 (06:29→20:29)
[2018-05-02] MEDS: METOCLOPRAMIDE 10 MG/2 ML VIAL IV SCH (06:29)
[2018-05-02 07:00] LABS: PLATELET COUNT 432 10^3/uL (150-400)
[2018-05-02] MEDS: METOPROLOL TARTRATE 5 MG/5 ML INJ IVP PRN ×2 (07:40→18:29)
[2018-05-02] MEDS ORDERED: POTASSIUM CL 20 MEQ/15 ML UDCUP TUBE ONE (07:45)
[2018-05-02] MEDS: ENOXAPARIN 40 MG/0.4 ML SYR SC SCH (09:26)
[2018-05-02] MEDS: LANSOPRAZOLE SUSP 30MG/10ML UDSYR (Adult) TUBE SCH (09:26)
[2018-05-02] MEDS: ASPIRIN 81 MG CHEWABLE TAB TUBE SCH (09:27)
[2018-05-02] MEDS: MAGNESIUM OXIDE 400 MG TAB TUBE SCH (09:27)
--- NOTE | 2018-05-02 09:42 | SOAPPROG ---
SOAP Progress Note Assessment/Plan: Assessment: POD#16 MICS complex MV repair w #26 Physio ring, access mini right thoracotomy, femoral CPB with primary repair of femoral arteries and vein after decannulation PPD#10 20 Fr G tube. TFs at goal. PPD#9 8-0 Shiley perc trach IV access LUE PICC Severe MR - Amenable to mini invasive approach. Rt fem CPB complicated by unexplained 15 min low flow state refractory to pressors. Cannula ultimately transferred to left side with improved hemodynamics. Slow to arouse and neuro eval c/w anoxic brain injury. 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 Cardiac status stable on BB. Antithrombotic prophylaxis with ASA alone. Surgical wounds healing appropriately. Prognosis for functional recovery poor but family would like transition to LTAC. Acute expected blood loss anemia with thrombocytopenia and mild coagulopathy - Stable s/p 5u PRBC. H/H > 10/30 maintained. VTE prophylaxis with LMWH. Postoperative respiratory failure - Inability to clear secretions and reintubated for resp distress. Perc trach placed. Management per pulm. Fevers - Tmax 39.2 overnight. WBC trending down from 13.8 to 11.7. Bronchoscopy yesterday demonstrated small amounts of purulent secretions. 1/3 sputum mixed oral paulina. 1/4 urine cx & repeat sputum cx pending. Plan: Fever, microbiology w/u per ICU team. Cont supportive care as per multidisciplinary team. LTAC placement per CM. Subjective: Sitting in chair/unresponsive Objective: Vital Signs Temp Pulse Resp BP Pulse Ox 38.2 C 107 H 18 120/71 100 05/02/18 07:24 05/02/18 09:28 05/02/18 07:24 05/02/18 09:28 05/02/18 07:24 Microbiology 05/01/18 14:13 - Final Sputum, Induced/Suctioned 04/30/18 17:00 - Final Sputum, Induced/Suctioned Laboratory Results 05/02/18 06:42 05/02/18 06:42 05/01/18 05/02/18 05/03/18 05:59 05:59 05:59 Intake Total 2020 1648 Output Total 225 Balance 1796 1648 PT 14.3 SEC (12.0-15.0) 04/20/18 04:15 INR 1.09 (0.83-1.16) 04/20/18 04:15 General Appearance: no apparent distress, unresponsive Respiratory: lungs clear (grossly), other (rt thoracot and bilat groins ok, no erythema) Cardiac/Chest: ST Abdomen: soft, G tube Skin: warm, dry Extremities: other (no visible edema) ICD10 Worksheet Patient Problems: Problems Problem Status Onset Acute blood loss anemia Acute Mitral valve regurgitation Acute S/P mitral valve repair Acute ~04/16/18 Depression Chronic
--- NOTE | 2018-05-02 11:03 | PDINTPN ---
Research And Evaluation Analyst Progress Note Assessment/Plan: Assessment: 23 yo F w severe mitral regurgitation s/p MVR whose course has been complicated by severe anoxic brain injury in the setting of low intraoperative perfusion pressure. # anoxic/ischemic brain injury # encephalopathy # MR s/p MVR # respiratory failure: Chest x-ray with increased her right base atelectasis/ effusion/infiltrate. Minimal secretions on bronchoscopy. Sputum culture unremarkable # paroxysmal sympathetic hyperactivity- intermittent tachycardia, posturing, hyperthermia. Had generalized clonic activity 04/26 night, resolved with Ativan. # ID: Off antibiotics. White blood count bumped up, but is a down today. She continues to have daily fevers. Pyuria on urinalysis, culture pending. # anxiety # s/p PEG 04/22/18 # s/p perc trach 8-0 shiley 04/23/18 # hypokalemia: Resolved # Anemia. Improved. Iron replete based on normal ferritin # Elevated LFTs: Down today, although still above upper limits of normal PLAN # Repeat Lytes, CBC # of bed to chair twice daily as tolerated # Consider bronchoscopy today to determine if patient has significant right lower lobe secretions/pneumonia, with increased infiltrate on chest x-ray, intermittent fevers, and rising white blood count. # oxy as needed for sympathetic hyperreactivity # may at some point need long-acting benzo if persistent spasms occur however will avoid for now in the setting of new neurologic insult # If has recurrent clonic activity, consider re-consult of neurology for EEG, possibly Keppra # Fluoxetine 20 daily # will downsize trach to 6-0 shiley vs 7-0 portex after 2-3 weeks (mid April 2018) # right upper incisor tooth mildly loose but unable to be removed with gentle traction. This point will not pursue further intervention # Analgesia prn oxy # Sedation none # Thromboprophylaxis - SCDs, lovenox, increaseto 40 sq daily # Head of bed elevated # Ulcer prophylaxis - PPI (for recent PEG) # continue external urinary catheter # Glucose SSI # Skin no skin breakdown # Melatonin to help with sleep # await culture results # Follow LFTs # Dispo - LTAC placement 05/02/18 11:35 Subjective: Unresponsive Objective: Vital Signs Temp Pulse Resp BP Pulse Ox 38.2 C 107 H 18 120/71 100 05/02/18 07:24 05/02/18 09:28 05/02/18 07:24 05/02/18 09:28 05/02/18 07:24 Microbiology 05/01/18 14:13 - Final Sputum, Induced/Suctioned 04/30/18 17:00 - Final Sputum, Induced/Suctioned Laboratory Results 05/02/18 06:42 05/02/18 06:42 05/01/18 05/02/18 05/03/18 05:59 05:59 05:59 Intake Total 1 1648 100 Output Total 225 Balance 1796 1648 100 PT 14.3 SEC (12.0-15.0) 04/20/18 04:15 INR 1.09 (0.83-1.16) 04/20/18 04:15 Microbiology 05/01/18 14:13 Sputum, Induced/Suctioned - Final: 2+ GPC in clusters, 1+ GPC in chains Physical Exam - Physical Exam General Appearance: unresponsive EENT: normal ENT inspection Neck: normal inspection Respiratory: lungs clear, normal breath sounds Cardiac/Chest: regular rate, rhythm, No edema Abdomen: normal bowel sounds, non-tender Skin: normal color, warm/dry Extremities: normal inspection Neuro/Psych: alert, normal mood/affect, oriented x 3 ICD10 Worksheet Patient Problems: Problems Problem Status Onset Acute blood loss anemia Acute Mitral valve regurgitation Acute S/P mitral valve repair Acute ~04/16/18 Depression Chronic
[2018-05-02] MEDS: IBUPROFEN SUSP 100 MG/5 ML UDCUP TUBE PRN ×2 (14:12→21:50)
--- NOTE | 2018-05-02 18:53 | ASMTCMCOM ---
CM Note CM Note Notes: Reviewed chart. Per ICU rounds, sputum culture positive, pt continues to have persistent temps and possible seizure-like activity at night. Per prior CM notes, Maryanne from [facility] saw pt and family yesterday (Friday05/01/17) and agreed to fax financial documents to CM for family to sign. No faxed documents located in ICU, pt's chart or in [employer]. Met with pt's father, Griffin. Griffin very frustrated with situation, insisting pt transfer to LTAC today. Call placed to Maryanne at [facility] , no answer, LVM. [facility], no answer, LVM. Call placed to main number , LVM with executive receptionist. Update provided to pt's father. Griffin insisting on driving to [place] to search for missing financial paperwork at [facility]; encouraged Griffin to be patient and wait. Griffin received a call from Liz at [facility]. Per Griffin, [facility] is requiring family to pay $31,000 via perpetual inventory clerk's check on the day of admission for [id number]-taxrjnn costs. Conference call held between Griffin BROTHERS and Liz at [facility] to clarify information. Per Liz, the pt's "family must pay $13,342.00 at the time of admission preferably by perpetual inventory clerk's check. If that is not possible, [facility] is willing to negotiate an exception for a personal check or credit card payment." Per Liz, "the pt has been granted a one time, special contract for this admission, which covers approximately 27 days of rehabilitation." The pt's insurance (a [employer] plan) sent a letter to [facility] on Friday04/28/18 explaining that [facility] is an [id number] facility. Per [facility], "their rate of reimbursement as an [id number] facility is approximately $26,284.00 for 27 days of care." "Payment is expected on Day 1 in the amount of $13,342.00; Day 14 in the amount of approximately $7,000 and on Day 27 the final balance will be due, approximately $7,000." Per Liz, the LTAC NEUROLOGICAL SURGERY TEACHER will be in the office on Friday05/04/18 between [id number] AM. Liz advised the pt's family to meet with the NEUROLOGICAL SURGERY TEACHER on Friday to further discuss the terms of the contract. Liz stated several times "the pt's admission is not guaranteed at this time and will be based upon the financial discussion held Friday." The pt's father Griffin stated he will be paying the initial down payment with a credit card and will plan to be at [facility] at 0800 on Friday05/04/18. During the conference call, Griffin asked if it would be possible to install a personal TV and stereo system for the pt, prior to admission in her room. Per Liz, "the pt will likely be placed in a high observation room, but they won't slate a room for her until the day of admission." Pt's father asked several times if he could drill his own holes for a new TV and stereo system in the room. Liz said she "did not think that would be possible." Liz advised Griffin to speak with the NEUROLOGICAL SURGERY TEACHER or other admissions staff about making modifications to the pt's room at [facility]. CM spent approximately 30 minutes with pt's father providing support and offering alternative options. Per [facility], pt was previously accepted at [facility]. Pt's father states he was told "[facility] is the very best and he doesn't want his dghtr going anywhere else." CM attempted to clarify information and to offer alternatives due to high qaw-vh-oyyrmee costs, pt's father not currently interested in discussing alternatives. CM attempted to discuss groundwater monitoring technician goals of care - pt's father hopes the pt will show improvement in the 27 days at [facility] so she can then transfer to [facility] in [place], [place]. CM spoke briefly with pt's mother and sister. Per sister, the family may need a medical note regarding the pt's hospitalization for pt to keep her insurance current through . Sister encouraged to speak with CM once they determine what they need. Updates provided to ADONAY Michele, Yadira, AMMY and Dr. House. CM spent approximately 30 minutes speaking with Liz from [facility]. Details reviewed, updates sent via [employer]. CM will continue to follow. Discharge Plan: LTAC - hopefully [facility] on Friday05/04/18 or Friday05/05/18 Date Signed: 05/02/2018 06:48 PM Electronically Signed By:Aviva Benjamin RN
[2018-05-02] MEDS: MELATONIN 3 MG TAB PO SCH (21:47)
[2018-05-02] MEDS: FLUoxetine 20 MG CAP TUBE SCH (21:47)
[2018-05-03] MEDS: PETROLAT,WHT/MIN OIL/SOD CHL 3.5 GM OPHT.OINT EACHEYE SCH ×4 (02:41→19:19)
[2018-05-03] MEDS: LORazepam 2 MG/ML INJ IVP PRN (02:41)
[2018-05-03] MEDS: DOCOSANOL 2 GM CREAM TP SCH ×5 (05:33→21:25)
--- NOTE | 2018-05-03 08:22 | SOAPPROG ---
SOAP Progress Note Assessment/Plan: Assessment: POD#17 MICS complex MV repair w #26 Physio ring, access mini right thoracotomy, femoral CPB with primary repair of femoral arteries and vein after decannulation PPD#11 20 Fr G tube. TFs at goal. PPD#10 8-0 Shiley perc trach IV access LUE PICC Severe MR - Amenable to mini invasive approach. Rt fem CPB complicated by unexplained 15 min low flow state refractory to pressors. Cannula ultimately transferred to left side with improved hemodynamics. Slow to arouse and neuro eval c/w anoxic brain injury. 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 Cardiac status stable on BB. Antithrombotic prophylaxis with ASA alone. Surgical wounds healing appropriately. Prognosis for functional recovery poor but family would like transition to LTAC. Acute expected blood loss anemia with thrombocytopenia and mild coagulopathy - Stable s/p 5u PRBC. H/H > 10/30 maintained. VTE prophylaxis with LMWH. Postoperative respiratory failure - Inability to clear secretions and reintubated for resp distress. Perc trach placed. Management per pulm. Fevers - Tmax 39.5 overnight. Last WBC 11.7 (05/02). Prelim urine cx positive for e.coli >100k CFU. 05/01 sputum cx mixed paulina. Plan: Fever, microbiology w/u per ICU team. Cont supportive care as per multidisciplinary team. Per Aviva's note from [facility], plan for Friday or Friday transfer to LTAC. Subjective: In chair. Unresponsive. Objective: Vital Signs Temp Pulse Resp BP Pulse Ox 36.6 C 104 H 20 121/71 H 97 05/03/18 05:34 05/03/18 05:34 05/03/18 04:00 05/03/18 04:00 05/03/18 04:00 Microbiology 04/30/18 17:00 - Final Sputum, Induced/Suctioned Sputum Culture - Final 05/01/18 14:13 - Final Sputum, Induced/Suctioned Laboratory Results 05/02/18 06:42 05/02/18 06:42 05/02/18 05/03/18 05/04/18 05:59 05:59 05:59 Intake Total 1648 1599 Balance 1648 1599 PT 14.3 SEC (12.0-15.0) 04/20/18 04:15 INR 1.09 (0.83-1.16) 04/20/18 04:15 - Physical Exam General Appearance: no apparent distress, unresponsive Respiratory: lungs clear (grossly), other (rt thoracot and bilat groins ok, no erythema) Cardiac/Chest: ST Abdomen: soft, G tube Skin: warm, dry Extremities: other (no visible edema) ICD10 Worksheet Patient Problems: Problems Problem Status Onset Acute blood loss anemia Acute Mitral valve regurgitation Acute S/P mitral valve repair Acute ~04/16/18 Depression Chronic
[2018-05-03] MEDS: LANSOPRAZOLE SUSP 30MG/10ML UDSYR (Adult) TUBE SCH (09:13)
[2018-05-03] MEDS: MAGNESIUM OXIDE 400 MG TAB TUBE SCH (09:13)
[2018-05-03] MEDS: METOPROLOL TARTRATE 5 MG/5 ML INJ IVP PRN ×2 (09:13→20:39)
[2018-05-03] MEDS: ASPIRIN 81 MG CHEWABLE TAB TUBE SCH (09:14)
[2018-05-03] MEDS: ACETAMINOPHEN 650 MG/20.3 ML UDCUP TUBE PRN ×3 (09:14→22:47)
[2018-05-03] MEDS: ENOXAPARIN 40 MG/0.4 ML SYR SC SCH (09:14)
[2018-05-03] MEDS: PROPRANOLOL HCL 20 MG TAB TUBE SCH ×2 (09:14→16:26)
[2018-05-03] MEDS: IBUPROFEN SUSP 100 MG/5 ML UDCUP TUBE PRN ×3 (09:15→22:41)
[2018-05-03] MEDS ORDERED: POTASSIUM CL 10 MEQ TAB TUBE ONE ×2 (09:29→13:45)
--- NOTE | 2018-05-03 14:08 | PDINTPN ---
Slate Cutter Progress Note Assessment/Plan: Assessment: 23 yo F w severe mitral regurgitation s/p MVR whose course has been complicated by severe anoxic brain injury in the setting of low intraoperative perfusion pressure. # anoxic/ischemic brain injury # encephalopathy # MR s/p MVR # respiratory failure: Chest x-ray with increased her right base atelectasis/ effusion/infiltrate. Minimal secretions on bronchoscopy. Sputum culture unremarkable # paroxysmal sympathetic hyperactivity- intermittent tachycardia, posturing, hyperthermia. Had generalized clonic activity 04/26 night, resolved with Ativan. # ID: Off antibiotics. White blood count bumped up, but is a down today. She continues to have daily fevers. Pyuria on urinalysis, culture pending. # anxiety # s/p PEG 04/22/18 # s/p perc trach 8-0 shiley 04/23/18 # hypokalemia: Resolved # Anemia. Improved. Iron replete based on normal ferritin # Elevated LFTs: Down, although still above upper limits of normal # UTI: e.Coli, tavarez sensitive. White blood count down a bit yesterday, but still having fevers. Unclear if these are entirely due to paroxysmal sympathetic activity or a UTI. # Possible seizures: The patient has had episodes in which her upper lip tremors, she has increased muscle tone, and pupils are sometimes dilated with some ideation. He seemed to be aborted with Ativan. I witnessed one of these episodes when I intubated her about 10 days ago, and similar episodes have occurred 4-5 times over the past week, mostly at night. An EEG was 10 days ago and did not demonstrate seizure activity, but this was done after receiving Ativan and while on Keppra and propofol. PLAN # Repeat Lytes, CBC # of bed to chair twice daily as tolerated # oxy as needed for sympathetic hyperreactivity # may at some point need long-acting benzo if persistent spasms occur however will avoid for now in the setting of new neurologic insult # Per discussion with Dr. Bryant today, he will order an EEG for tomorrow morning , and the patient will be seen by Dr. Peres to consider restarting Keppra to see if this will suppress these seizure-like episodes. # Fluoxetine 20 daily # will downsize trach to 6-0 shiley vs 7-0 portex after 2-3 weeks (mid April 2018) # right upper incisor tooth mildly loose but unable to be removed with gentle traction. This point will not pursue further intervention # Analgesia prn oxy # Sedation none # Thromboprophylaxis - SCDs, lovenox, increaseto 40 sq daily # Head of bed elevated # Ulcer prophylaxis - PPI (for recent PEG) # continue external urinary catheter # Glucose SSI # Skin no skin breakdown # Melatonin to help with sleep # await culture results # Follow LFTs # Dispo - LTAC placement 05/02/18 11:35 05/03/18 14:02 Subjective: Unresponsive Objective: Vital Signs Temp Pulse Resp BP Pulse Ox 38.7 C H 102 H 20 129/86 H 100 05/03/18 11:33 05/03/18 11:33 05/03/18 11:33 05/03/18 11:33 05/03/18 11:33 Microbiology 05/01/18 14:15 Urine Culture - Final Urine,Catheterized Escherichia Coli 04/30/18 17:00 - Final Sputum, Induced/Suctioned Sputum Culture - Final 05/01/18 14:13 - Final Sputum, Induced/Suctioned Laboratory Results 05/02/18 06:42 05/02/18 06:42 05/02/18 05/03/18 05/04/18 05:59 05:59 05:59 Intake Total 1648 1599 360 Balance 1648 1599 360 PT 14.3 SEC (12.0-15.0) 04/20/18 04:15 INR 1.09 (0.83-1.16) 04/20/18 04:15 Microbiology 05/01/18 14:15 Urine,Catheterized Urine Culture - Final Escherichia Coli Laboratory Tests 05/02/18 06:42 AST 83 H ALT 134 H Physical Exam - Physical Exam General Appearance: unresponsive EENT: normal ENT inspection Neck: normal inspection Respiratory: lungs clear, normal breath sounds, No respiratory distress Cardiac/Chest: regular rate, rhythm, edema Abdomen: normal bowel sounds, non-tender Skin: normal color, warm/dry Extremities: normal inspection Neuro/Psych: No normal mood/affect, No oriented x 3 ICD10 Worksheet Patient Problems: Problems Problem Status Onset Acute blood loss anemia Acute Mitral valve regurgitation Acute S/P mitral valve repair Acute ~04/16/18 Depression Chronic
--- NOTE | 2018-05-03 14:31 | NEUROPROG ---
Assessment: ICU service asked for neurology to evaluate for any possible seizure activity. Pt with episodic tremor like movements in lip or sometimes on right or left side of body. Unclear if it represents underlying subcortical release phenomena or epileptic seizure. Will get EEG and if any seizure activity begin Keppra 500 mg bid. Pt had a severe anoxic brain injury so I do not think it is likely that seizure control will change neurologic recovery much but it is possible. - 35 min spent with patient and ICU team discussing case and coordinating care. Objective: Vital Signs Temp Pulse Resp BP Pulse Ox 38.7 C H 102 H 20 129/86 H 100 05/03/18 11:33 05/03/18 11:33 05/03/18 11:33 05/03/18 11:33 05/03/18 11:33 Microbiology 05/01/18 14:13 - Final Sputum, Induced/Suctioned Sputum Culture - Final 05/01/18 14:15 Urine Culture - Final Urine,Catheterized Escherichia Coli 04/30/18 17:00 - Final Sputum, Induced/Suctioned Sputum Culture - Final Laboratory Results 05/02/18 06:42 05/02/18 06:42 05/02/18 05/03/18 05/04/18 05:59 05:59 05:59 Intake Total 1648 1599 360 Balance 1648 1599 360 PT 14.3 SEC (12.0-15.0) 04/20/18 04:15 INR 1.09 (0.83-1.16) 04/20/18 04:15 Allergies/Adverse Reactions: No Known Allergies Allergy (Verified 04/09/18 15:57)
[2018-05-03] MEDS: AMOXICILLIN SUSP 250 MG/5 ML BTL PO SCH ×2 (15:14→21:25)
[2018-05-03] MEDS: FLUoxetine 20 MG CAP TUBE SCH (20:38)
[2018-05-03] MEDS: MELATONIN 3 MG TAB PO SCH (20:38)
[2018-05-04] MEDS: PROPRANOLOL HCL 20 MG TAB TUBE SCH ×4 (00:28→23:44)
[2018-05-04] MEDS: PETROLAT,WHT/MIN OIL/SOD CHL 3.5 GM OPHT.OINT EACHEYE SCH ×5 (00:29→23:45)
[2018-05-04 04:12] LABS: PLATELET COUNT 394 10^3/uL (150-400)
[2018-05-04] MEDS: ACETAMINOPHEN 650 MG/20.3 ML UDCUP TUBE PRN ×4 (04:13→20:23)
[2018-05-04] MEDS: DOCOSANOL 2 GM CREAM TP SCH ×5 (06:01→23:45)
[2018-05-04] MEDS: AMOXICILLIN SUSP 250 MG/5 ML BTL PO SCH (06:01)
[2018-05-04] MEDS: IBUPROFEN SUSP 100 MG/5 ML UDCUP TUBE PRN ×3 (06:34→18:39)
[2018-05-04] MEDS: METOPROLOL TARTRATE 5 MG/5 ML INJ IVP PRN ×2 (06:55→15:35)
[2018-05-04] MEDS: MAGNESIUM OXIDE 400 MG TAB TUBE SCH (08:22)
[2018-05-04] MEDS: ENOXAPARIN 40 MG/0.4 ML SYR SC SCH (08:22)
[2018-05-04] MEDS: ASPIRIN 81 MG CHEWABLE TAB TUBE SCH (08:22)
[2018-05-04] MEDS: LANSOPRAZOLE SUSP 30MG/10ML UDSYR (Adult) TUBE SCH (08:28)
--- NOTE | 2018-05-04 08:38 | SOAPPROG ---
SOAP Progress Note Assessment/Plan: POD #17: MICS complex MV repair w #26 Physio ring, access mini right thoracotomy , femoral CPB with primary repair Severe MR with torn chord to P3 segment s/p MICS complex repair - Stable. Valve thromboprophylaxis with ASA alone. Encephalopathy secondary to hypoperfusion with ischemic/anoxic injury - prognosis remains critical. Plan for LTAC once medically stable. Possible EEG today as per neurology to r/o seizure activity. Acute expected blood loss anemia with thrombocytopenia - stable after multiple units of PRBCs. No evidence active bleeding. Monitor. Respiratory insufficiency - s/p tracheostomy. Continue TC. Mgmt as per pulmonology. UTI - ABX as per tension machine operator. DVT prophylaxis - SCDs/Lovenox. Nutrition - Continues TFs. Access: LUE PICC. Subjective: Unresponsive. Objective: Vital Signs Temp Pulse Resp BP Pulse Ox 38.7 C H 126 H 28 H 140/87 H 100 05/04/18 07:28 05/04/18 08:22 05/04/18 07:28 05/04/18 07:28 05/04/18 07:28 Microbiology 05/01/18 14:13 - Final Sputum, Induced/Suctioned Sputum Culture - Final 05/01/18 14:15 Urine Culture - Final Urine,Catheterized Escherichia Coli Laboratory Results 05/04/18 04:00 05/04/18 04:00 05/03/18 05/04/18 05/05/18 05:59 05:59 05:59 Intake Total 1599 1700 Balance 1599 1700 PT 14.3 SEC (12.0-15.0) 04/20/18 04:15 INR 1.09 (0.83-1.16) 04/20/18 04:15 Physical Exam - Physical Exam General Appearance: mild distress, unresponsive Neck: other (trach) Respiratory: respiratory distress Cardiac/Chest: tachycardia Abdomen: non-tender, soft, No distended Pelvic Exam: deferred Rectal: deferred Skin: warm/dry, pallor Extremities: No pedal edema Neuro/Psych: motor weakness, sensory deficit, cognition abnormalities, speech abnormalities ICD10 Worksheet Patient Problems: Problems Problem Status Onset Acute blood loss anemia Acute Mitral valve regurgitation Acute S/P mitral valve repair Acute ~04/16/18 Depression Chronic
--- NOTE | 2018-05-04 12:10 | PDINTPN ---
Medical Officer Psychiatry Progress Note Assessment/Plan: Assessment: 23 yo F w severe mitral regurgitation s/p MVR whose course has been complicated by severe anoxic brain injury in the setting of low intraoperative perfusion pressure. # anoxic/ischemic brain injury # encephalopathy # possible seizures: The patient has had episodes in which her upper lip tremors, she has increased muscle tone, and pupils are sometimes dilated with some ideation. These seemed to be aborted with Ativan. Neurology reconsulted yesterday, EEG today. Further recommendations based on the results of the latter. # MR s/p MVR # respiratory failure: Chest x-ray with increased her right base atelectasis/ effusion/infiltrate. Minimal secretions on bronchoscopy. Sputum culture unremarkable # paroxysmal sympathetic hyperactivity- intermittent tachycardia, posturing, hyperthermia. Had generalized clonic activity 04/26 night, resolved with Ativan. # ID: Off antibiotics. White blood count up to 16 today. She continues to have daily fevers. E coli in urine, multiple E sensitive. # anxiety # s/p PEG 04/22/18 # s/p perc trach 8-0 shiley 04/23/18 # hypokalemia: Resolved # Anemia. Improved. Hematocrit 36 today. # Elevated LFTs: Still above upper limits of normal # UTI: e.Coli, tavarez sensitive. White blood count increased to 16,000 today, with fevers to over 103. Will start antibiotics: Levaquin IV today than orally. Blood cultures to be drawn. # right upper incisor tooth mildly loose but unable to be removed with gentle traction. Continue to follow. PLAN # add Levaquin today for UTI/leukocytosis/ongoing fevers # follow laboratory # continue to mobilize # oxy as needed for sympathetic hyperreactivity # may at some point need long-acting benzo if persistent spasms occur however will avoid for now in the setting of new neurologic insult # await EEG results today. # Fluoxetine 20 daily # downsize trach to 6-0 shiley vs 7-0 portex in 1-2 # DVT prophylaxis - SCDs, lovenox. # Head of bed elevated # Ulcer prophylaxis - PPI (for recent PEG) # continue external urinary catheter # Skin no skin breakdown # continue Melatonin to help with sleep # await culture results # Follow LFTs intermittently # Dispo - LTAC placement. Bed available now at [facility] today. If EEG does not show seizure activity and Neurology feel she can safely be transferred will discharge to [facility] rehab later today if [facility] agrees. 30 min of critical care time spent directly with the patient, not including discharge. Discussed with nursing, Neurology, and the ICU multi disciplinary team. Addendum: EEG shows no evidence of seizure. Slow wave activity persists but has significantly improved per Neurology compared with her previous EEG. Subjective: Unresponsive to voice and commands. Moves all extremities Objective: Vital Signs Temp Pulse Resp BP Pulse Ox 40 C H 123 H 26 H 138/81 H 100 05/04/18 11:58 05/04/18 11:58 05/04/18 11:58 05/04/18 11:58 05/04/18 11:58 Microbiology 05/01/18 14:13 - Final Sputum, Induced/Suctioned Sputum Culture - Final 05/01/18 14:15 Urine Culture - Final Urine,Catheterized Escherichia Coli Laboratory Results 05/04/18 04:00 05/04/18 04:00 05/03/18 05/04/18 05/05/18 05:59 05:59 05:59 Intake Total 1599 1700 100 Balance 1599 1700 100 PT 14.3 SEC (12.0-15.0) 04/20/18 04:15 INR 1.09 (0.83-1.16) 04/20/18 04:15 Laboratory Tests 05/04/18 04:00 Calcium 9.2 Total Bilirubin 0.6 AST 100 H ALT 92 H Albumin 3.8 Physical Exam - Physical Exam General Appearance: no apparent distress, unresponsive (To voice and commands) EENT: PERRL/EOMI Neck: other (Trach collar in place) Respiratory: lungs clear, decreased breath sounds (At bases) Cardiac/Chest: tachycardia Abdomen: normal bowel sounds, non-tender, soft, other (Peg tube in place. Tolerating tube feeding) Pelvic Exam: other (External catheter in place) Skin: warm/dry, pallor Extremities: pedal edema (Trace +) Neuro/Psych: cognition abnormalities (Unchanged), No no motor/sensory deficits ( Unchanged) ICD10 Worksheet Patient Problems: Problems Problem Status Onset Acute blood loss anemia Acute S/P mitral valve repair Acute ~04/16/18 Mitral valve regurgitation Acute Depression Chronic
--- NOTE | 2018-05-04 12:33 | NEUROPROG ---
Assessment: EEG shows improvement in cortical function compared to prior study (see report for full details). No additional medications recommended at this time as she is showing objective improvement on EEG and her tremor like movement is not clearly a seizure. Agree with plan to transfer to LTAC. Objective: Vital Signs Temp Pulse Resp BP Pulse Ox 40 C H 123 H 26 H 138/81 H 100 05/04/18 11:58 05/04/18 11:58 05/04/18 11:58 05/04/18 11:58 05/04/18 11:58 Microbiology 05/01/18 14:13 - Final Sputum, Induced/Suctioned Sputum Culture - Final 05/01/18 14:15 Urine Culture - Final Urine,Catheterized Escherichia Coli Laboratory Results 05/04/18 04:00 05/04/18 04:00 05/03/18 05/04/18 05/05/18 05:59 05:59 05:59 Intake Total 1599 1700 100 Balance 1599 1700 100 PT 14.3 SEC (12.0-15.0) 04/20/18 04:15 INR 1.09 (0.83-1.16) 04/20/18 04:15 Allergies/Adverse Reactions: No Known Allergies Allergy (Verified 04/09/18 15:57)
--- NOTE | 2018-05-04 13:27 | PDIAF ---
- Diagnosis Diagnosis: s/p MV repair, anoxic/ischemic encephalopathy Code Status: Full Code - Medication Management Discharge Medications: electronically signed and located in the Home Medication List. PICC Care - Routine: Yes - Orders Services needed: Registered Nurse, Certified Stress Analyst, Master Surface Miner , Physical Therapy Isolation Type: None Oxygen: TC, 35% Diet Recommendation: other (see below for tube feeding instructions) Diet Texture: None Tube feeding: Jevity 1.5 High Calorie (40 mL/h), Free Water Flushes (200 mL q4h) Weigh Patient: daily Jc: No Additional Instructions: Cleanse wounds once daily with soap and water. Avoid immersion (pool, hot tub, bath) until fully healed. Ok to leave all wounds open to air. Avoid creams or ointments until fully healed. - Follow Up Care Current Providers and Referrals: Pauline White MD [Primary Care Provider] -
--- NOTE | 2018-05-04 13:34 | PDDCSUM ---
Discharge Summary Discharge Summary: ADMISSION DATE: 04/16/18 DISCHARGE DATE: 05/04/18 ADMISSION DIAGNOSES 1. Severe mitral valve regurgitation 2. Depression DISCHARGE DIAGNOSES 1. Severe mitral valve regurgitation 2. Depression 3. Encephalopathy secondary to hypoperfusion 4. Acute blood loss anemia 5. Respiratory failure 6. UTI 7. Paroxysmal sympathetic hyperactivity 8. Failure to thrive PROCEDURES 04/16/18: (Roddy GarciaHaylee George): Complex mitral valve repair with #26 Physio annuloplasty ring, femoral CPB with primary repair 04/20/18: LUE PICC Placement 04/22/18: (Pascual Meza): Gastric tube placement 04/23/18: (August Angel): Percutaneous tracheostomy placement HPI 1. 23F with severe MR admitted electively for MV repair. HOSPITAL COURSE BY PROBLEM LIST 1. Severe mitral valve regurgitation - s/p complex repair via right thoracotomy. Valve thromboprophylaxis with ASA alone. 2. Depression - continue Prozac. 3. Encephalopathy secondary to hypoperfusion with paroxysmal sympathetic hyperactivity - severe anoxic and ischemic injury. Prognosis remains critical. Continue Propranolol and PRN IV metoprolol/Ativan for sympathetic hyperactivity. EEGs without signs of seizure activity. 4. Acute blood loss anemia - stable s/p multiple transfusions. 5. Respiratory failure - stable s/p tracheostomy. 6. UTI - continue Levaquin for 5 days. 7. Failure to thrive - continue tube feeding as directed. CONDITION Critical DISPOSITION [facility] DISCHARGE MEDICATIONS Prevacid 30 mg PEG DAILY, Levaquin 750 mg PEG DAILY for 5 days, Magnesium Oxide 400 mg PEG DAILY, Melatonin 1.5 mg PEG DAILY, Metoprolol 5 mg IVP Q4H PRN agitation, Propranolol 20 mg PEG Q8H, Lovenox 40 mg SQ DAILY, Tylenol PEG PRN, Prozac 20 mg PEG QHS PENDING STUDIES/LABS 1. As per LTAC
[2018-05-04] MEDS ORDERED: AMOXICILLIN SUSP 250 MG/5 ML BTL TUBE SCH (14:00)
--- NOTE | 2018-05-04 14:12 | CPEEG ---
DATE OF STUDY: 05/04/2018 INTERPRETATION: This EEG contains a severe degree of diffuse nonspecific slowing and intermittent superimposed triphasic waves. These findings would be consistent with a severe, diffuse disturbance of cerebral function. There were no seizures or definite potentially epileptogenic abnormalities recorded. The resumption of high-amplitude slowing on this study compared to the patient' s previous tracing dated April 23, 2018 (which showed significant suppression of background activity), represents improvement in background activity. REPORT: This EEG contains high-amplitude delta frequency slowing typically at 3 Hz in terms of the dominant background activity. In addition, there were intermittent superimposed triphasic waves. There were no seizures recorded. There were no definite potentially epileptogenic abnormalities recorded. There was some variability in the tracing as well. /[id number]/MODL MTDD
--- NOTE | 2018-05-04 14:52 | ASMTCMCOM ---
CM Note CM Note Notes: CM spoke with Maryanne from [facility] who reports they are accepting pt at this time. CM spoke with MDs and RNs to update on acceptance. Transportation was scheduled for 4:30pm (earliest [facility] could do). CM then tried [facility] and the earliest they could do was 3:30pm. Maryanne then said that was too late and that they needed transfer to happen tomorrow, Friday. CM scheduled transportation for Friday05/05/18 at 11:00am with [facility]. CM submit discharge ppwk to [facility] through [employer]. Will send updates tomorrow. CM provided MD with doc to doc # ([phone]). CM to follow. Plan: transport to [facility] tomorrow at 11:00am via [facility]. Date Signed: 05/04/2018 02:52 PM Electronically Signed By:ISRAEL Cardoso
[2018-05-04] MEDS: LORazepam 2 MG/ML INJ IVP PRN (15:01)
[2018-05-04] MEDS: FLUoxetine 20 MG CAP TUBE SCH (20:25)
[2018-05-04] MEDS ORDERED: MELATONIN 3 MG TAB TUBE SCH (21:00)
[2018-05-05] MEDS: ACETAMINOPHEN 650 MG/20.3 ML UDCUP TUBE PRN ×2 (02:18→07:36)
[2018-05-05] MEDS: IBUPROFEN SUSP 100 MG/5 ML UDCUP TUBE PRN ×2 (02:18→10:38)
[2018-05-05] MEDS: DOCOSANOL 2 GM CREAM TP SCH ×2 (06:04→11:15)
[2018-05-05] MEDS: MAGNESIUM OXIDE 400 MG TAB TUBE SCH (07:36)
[2018-05-05] MEDS: PROPRANOLOL HCL 20 MG TAB TUBE SCH (07:36)
[2018-05-05] MEDS: ASPIRIN 81 MG CHEWABLE TAB TUBE SCH (07:37)
[2018-05-05] MEDS: ENOXAPARIN 40 MG/0.4 ML SYR SC SCH (07:37)
[2018-05-05] MEDS: LANSOPRAZOLE SUSP 30MG/10ML UDSYR (Adult) TUBE SCH (08:56)
[2018-05-05] MEDS ORDERED: levOFLOXACIN ORAL 25 MG/ML 100 ML BOTTLE TUBE SCH (10:00)
[2018-05-05 11:02] VITALS: BP 129/82
[2018-05-05] MEDS: PETROLAT,WHT/MIN OIL/SOD CHL 3.5 GM OPHT.OINT EACHEYE SCH (11:15)
== END 2018-05-05 11:55 | DRG 3 ==
LOC: F3N 06:28 → F2N 10:26
PROVIDERS: ADMIT Thoracic Surgery (Cardiothoracic Vascular Surgery); ATTEND Thoracic Surgery (Cardiothoracic Vascular Surgery)
PROC: 5A1221Z Performance of Cardiac Output, Continuous (ICD-10-PCS; principal; 2018-04-16 08:15)
PROC: 5A1945Z Respiratory Ventilation, 24-96 Consecutive Hours (ICD-10-PCS; principal; 2018-04-16 08:15)
PROC: B245ZZ4 Ultrasonography of Left Heart, Transesophageal (ICD-10-PCS; principal; 2018-04-16 08:15)
PROC: 02QG0ZZ Repair Mitral Valve, Open Approach (ICD-10-PCS; principal; 2018-04-16 08:15)
PROC: B340ZZ3 Ultrasonography of Thoracic Aorta, Intravascular (ICD-10-PCS; principal; 2018-04-16 08:15)
PROC: 02UG0JZ Supplement Mitral Valve with Synthetic Substitute, Open Approach (ICD-10-PCS; principal; 2018-04-16 08:15)
PROC: 30233N1 Transfusion of Nonautologous Red Blood Cells into Peripheral Vein, Percutaneous Approach (ICD-10-PCS; 2018-04-17)
PROC: 0DH63UZ Insertion of Feeding Device into Stomach, Percutaneous Approach (ICD-10-PCS; 2018-04-22)
PROC: 0B113F4 Bypass Trachea to Cutaneous with Tracheostomy Device, Percutaneous Approach (ICD-10-PCS; 2018-04-23)
PROC: 0B9F8ZZ Drainage of Right Lower Lung Lobe, Via Natural or Artificial Opening Endoscopic (ICD-10-PCS; 2018-04-23)
PROC: 0BJ08ZZ Inspection of Tracheobronchial Tree, Via Natural or Artificial Opening Endoscopic (ICD-10-PCS; 2018-04-23)
PROC: 5A1955Z Respiratory Ventilation, Greater than 96 Consecutive Hours (ICD-10-PCS; 2018-04-23)
PROC: 0BH17EZ Insertion of Endotracheal Airway into Trachea, Via Natural or Artificial Opening (ICD-10-PCS; 2018-04-23)
PROC: 02H633Z Insertion of Infusion Device into Right Atrium, Percutaneous Approach (ICD-10-PCS; 2018-04-23)
PROC: 0BJ08ZZ Inspection of Tracheobronchial Tree, Via Natural or Artificial Opening Endoscopic (ICD-10-PCS; 2018-05-01)
PROC: 3E1F88Z Irrigation of Respiratory Tract using Irrigating Substance, Via Natural or Artificial Opening Endoscopic (ICD-10-PCS; 2018-05-01)
DX: I34.0 Nonrheumatic mitral (valve) insufficiency (principal); I51.1 Rupture of chordae tendineae, not elsewhere classified; T82.9XXA Unspecified complication of cardiac and vascular prosthetic device, implant and graft, initial encounter; I97.88 Other intraoperative complications of the circulatory system, not elsewhere classified; G97.82 Other postprocedural complications and disorders of nervous system; I67.82 Cerebral ischemia; R40.3 Persistent vegetative state; D62 Acute posthemorrhagic anemia; E87.79 Other fluid overload; G90.9 Disorder of the autonomic nervous system, unspecified; R09.02 Hypoxemia; E46 Unspecified protein-calorie malnutrition; N39.0 Urinary tract infection, site not specified; B96.20 Unspecified Escherichia coli [E. coli] as the cause of diseases classified elsewhere; Z85.831 Personal history of malignant neoplasm of soft tissue
CPT/HCPCS: 82435-PO; 82565-PO; 82947-PO; 84132-PO; 84295-PO; 84520-PO; 85014-PO; 86022-90; 97167-GO; B4087; C1751; J0153; J0282; J0295; J0690; J1100; J1265; J1644; J1650; J1815; J1885; J1953; J1956; J2001; J2060; J2150; J2250; J2260; J2270; J2370; J2405; J2704; J2720; J2765; J2930; J2997; J3010; J3475; J3480; P9016; P9041